=== PATIENT | male | born 1955 | race Caucasian/White ===

== ENCOUNTER 2023-03-15 19:56 | Inpatient (IN) | payer OTHER ==
--- OUTSIDE RECORDS SUMMARY | 2023-03-16 14:37 | XMS REPORT | Continuity of Care Document ---
:1955 Author Organization [facility] t Address [address] [place] [address] [place] [id number] Care Team Providers Name Role Phone CHRIS MONROE Attending Clinician Unavailable CHRIS MONROE Admitting Clinician Unavailable Payers Payer Name Policy Type Policy Number Effective Date Expiration Date S [facility] MEDICARE A B [id number] 2021 00:00:00 [employer] [id number] 2022 INDEMNITY 00:00:00 [employer] INDEMNITY [id number] 2022 00:00:00 [place] [address] [id number] [facility] Problems Condition Condition Condition Status Onset Resolution Last Treating Co mments Source Name Details Category Date Date Treatment Clinician Date [id number] Left renal Problem Co mmon mass [facility] Obstructiv Other Problem Commo n e uropathy obstructiv Sp martha e and - CHI reflux [facility] [id number] Prostate Problem Com mon nodule [facility] [id number] Complex Problem Commo n renal cyst [facility] [id number] Other Problem Common retention [facility] of urine [facility] [id number] Elevated Problem Comm on PSA [facility] [id number] BPH loc w Problem Com mon urin [facility] obs/LUTS [facility] Allergies, Adverse Reactions, Alerts Allergy Allergy Status Severity Reaction(s) Onset Inactive Treating Comm ents Source Name Type Date Date Clinician NO KNOWN Allergy Active [facility] Social History Social Habit Start Date Stop Date Quantity Comments Source History of Tobacco Current Smoker [facility] - [facility] Use [facility] Sex Assigned At Com mon [facility] - [facility] Smoking Status Start Date Stop Date Source Current Smoker 2022-10-27 00:00:00 Common Spiri t - [facility] Medications Ordered Filled Start Stop Current Ordering Indication Dosage Frequency Signature Comments Components Source Medication Medication Date Date Medication? Clinician (SIG) Name Name Gentamicin Gentamicin No 240mg Common 80mg 80mg 10-06 Spirit 00:00: - [facility] Gentamicin Gentamicin No 240mg Common 80mg 80mg 10-06 Spirit 00:00: [facility] Carvedilol Carvedilol No 1{table BID Carvedilol 6.25 MG 6.25 MG t_with_ 6.25 MG food} HYDROcodone HYDROcodone No 1{table QID HYDROcodon -Acetaminop -Acetaminop t_as_ne e-Acetamin hen 10-325 hen 10-325 eded} ophen MG MG 10-325 MG Protonix 40 Protonix 40 No 1{table QD Protonix MG MG t} 40 MG Plavix 75 Plavix 75 No 1{table QD Plavix 75 MG MG t} MG HYDROcodone HYDROcodone No 1{table QID HYDROcodon -Acetaminop -Acetaminop t_as_ne e-Acetamin hen 10-325 hen 10-325 eded} ophen MG MG 10-325 MG Plavix 75 Plavix 75 No 1{table QD Plavix 75 MG MG t} MG Flomax 0.4 Flomax 0.4 No 1{capsu QD Flomax 0.4 MG MG le} MG amLODIPine amLODIPine No 1{table QD amLODIPine Besylate 10 Besylate 10 t} Besylate MG MG 10 MG Carvedilol Carvedilol No 1{table BID Carvedilol 6.25 MG 6.25 MG t_with_ 6.25 MG food} Tadalafil 5 Tadalafil 5 No 1{table QD Tadalafil MG MG t_as_ne 5 MG eded} Protonix 40 Protonix 40 No 1{table QD Protonix MG MG t} 40 MG Lyrica 200 Lyrica 200 No 1{capsu BID Lyrica 200 MG MG le} MG traZODone traZODone No 1{table QD traZODone HCl 50 MG HCl 50 MG t_at_be HCl 50 MG dtime_a s_neede d} Crestor 40 Crestor 40 No 1{table QD Crestor 40 MG MG t} MG Tricor 145 Tricor 145 No 1{table QD Tricor 145 MG MG t} MG HYDROcodone HYDROcodone No 1{table QID HYDROcodon -Acetaminop -Acetaminop t_as_ne e-Acetamin hen 10-325 hen 10-325 eded} ophen MG MG 10-325 MG Plavix 75 Plavix 75 No 1{table QD Plavix 75 MG MG t} MG Flomax 0.4 Flomax 0.4 No 1{capsu QD Flomax 0.4 MG MG le} MG amLODIPine amLODIPine No 1{table QD amLODIPine Besylate 10 Besylate 10 t} Besylate MG MG 10 MG Carvedilol Carvedilol No 1{table BID Carvedilol 6.25 MG 6.25 MG t_with_ 6.25 MG food} Tadalafil 5 Tadalafil 5 No 1{table QD Tadalafil MG MG t_as_ne 5 MG eded} Protonix 40 Protonix 40 No 1{table QD Protonix MG MG t} 40 MG Lyrica 200 Lyrica 200 No 1{capsu BID Lyrica 200 MG MG le} MG traZODone traZODone No 1{table QD traZODone HCl 50 MG HCl 50 MG t_at_be HCl 50 MG dtime_a s_neede d} Crestor 40 Crestor 40 No 1{table QD Crestor 40 MG MG t} MG Tricor 145 Tricor 145 No 1{table QD Tricor 145 MG MG t} MG amLODIPine amLODIPine No 1{table QD amLODIPine Besylate 10 Besylate 10 t} Besylate MG MG 10 MG Lyrica 200 Lyrica 200 No 1{capsu BID Lyrica 200 MG MG le} MG traZODone traZODone No 1{table QD traZODone HCl 50 MG HCl 50 MG t_at_be HCl 50 MG dtime_a s_neede d} HYDROcodone HYDROcodone No 1{table QID HYDROcodon -Acetaminop -Acetaminop t_as_ne e-Acetamin hen 10-325 hen 10-325 eded} ophen MG MG 10-325 MG Tadalafil 5 Tadalafil 5 No 1{table QD Tadalafil MG MG t_as_ne 5 MG eded} Carvedilol Carvedilol No 1{table BID Carvedilol 6.25 MG 6.25 MG t_with_ 6.25 MG food} Protonix 40 Protonix 40 No 1{table QD Protonix MG MG t} 40 MG Plavix 75 Plavix 75 No 1{table QD Plavix 75 MG MG t} MG Flomax 0.4 Flomax 0.4 No 1{capsu QD Flomax 0.4 MG MG le} MG Tricor 145 Tricor 145 No 1{table QD Tricor 145 MG MG t} MG Crestor 40 Crestor 40 No 1{table QD Crestor 40 MG MG t} MG Lyrica 200 Lyrica 200 No 1{capsu BID Lyrica 200 MG MG le} MG Tricor 145 Tricor 145 No 1{table QD Tricor 145 MG MG t} MG Tadalafil 5 Tadalafil 5 No 1{table QD Tadalafil MG MG t_as_ne 5 MG eded} traZODone traZODone No 1{table QD traZODone HCl 50 MG HCl 50 MG t_at_be HCl 50 MG dtime_a s_neede d} Crestor 40 Crestor 40 No 1{table QD Crestor 40 MG MG t} MG Flomax 0.4 Flomax 0.4 No 1{capsu QD Flomax 0.4 MG MG le} MG amLODIPine amLODIPine No 1{table QD amLODIPine Besylate 10 Besylate 10 t} Besylate MG MG 10 MG Fish Oil Fish Oil No Fish Oil Vital Signs Vital Name Observation Time Observation Value Comments Source WEIGHT 2023-03-10 10:46:00 102.5 kg HEIGHT 2023-03-10 10:46:00 180.3 cm HEIGHT 2023-02-24 12:38:00 180.3 cm WEIGHT 2023-02-24 12:38:00 103.42 kg WEIGHT 2023-03-10 10:46:00 102.5 kg HEIGHT 2023-03-10 10:46:00 180.3 cm HEIGHT 2023-02-24 12:38:00 180.3 cm WEIGHT 2023-02-24 12:38:00 103.42 kg blood pressure 2022-10-27 13:45:00 75 mm[Hg] [facility] - diastolic [facility] height 2022-10-27 13:45:00 71 [in_i] Common S pirit - [facility] weight 2022-10-27 13:45:00 219 [lb_av] [facility] temperature 2022-10-27 13:45:00 98.6 [degF] Common S pirit [facility] bmi 2022-10-27 13:45:00 30.54 kg/m2 Common S [facility] oximetry 2022-10-27 13:45:00 99 % Common [facility] respiratory rate 2022-10-27 13:45:00 18 /min Comm on [facility] blood pressure 2022-10-27 13:45:00 136 mm[Hg] [facility] - systolic [facility] height 2022-10-06 13:15:00 71 [in_i] Common S pirit [facility] weight 2022-10-06 13:15:00 223 [lb_av] Common S [facility] temperature 2022-10-06 13:15:00 98.6 [degF] Common S pirit [facility] bmi 2022-10-06 13:15:00 31.1 kg/m2 Common S [facility] oximetry 2022-10-06 13:15:00 99 % Common S [facility] respiratory rate 2022-10-06 13:15:00 18 /min Comm on [facility] blood pressure 2022-10-06 13:15:00 143 mm[Hg] [facility] - systolic [facility] blood pressure 2022-10-06 13:15:00 77 mm[Hg] [facility] - diastolic [facility] height 2022-06-09 08:00:00 71 [in_i] Common S pirit [facility] weight 2022-06-09 08:00:00 219.8 [lb_av] Common [facility] temperature 2022-06-09 08:00:00 97.6 [degF] [facility] bmi 2022-06-09 08:00:00 30.65 kg/m2 Common [facility] oximetry 2022-06-09 08:00:00 98 % [facility] respiratory rate 2022-06-09 08:00:00 18 /min Comm on [facility] blood pressure 2022-06-09 08:00:00 134 mm[Hg] Common [facility] - systolic [facility] blood pressure 2022-06-09 08:00:00 69 mm[Hg] Common [facility] - diastolic [facility] Procedures This patient has no known procedures. Encounters Start End Encounter Admission Attending Care Care Encounter Source Date/Time Date/Time Type Type Clinicians Facility Department ID 2023-03-14 Inpatient DHAVAL ORTEGA [facility] [id number] [facility] 00:00:00 [place] 2023-03-12 Inpatient DHAVAL ORTEGA [facility] [id number] [facility] 09:53:19 [place] 2023-03-12 Inpatient DAHVAL ORTEGA [facility] [id number] [facility] 09:14:25 [place] 2023-03-12 Inpatient DHAVAL ORTEGA [facility] [id number] [facility] 00:00:00 [place] 2022-06-09 Outpatient [facility] [id number] Common 08:02:01 [facility] 2023-03-10 2023-03-16 Inpatient [facility] [id number] [facility] 07:35:00 13:09:00 [place] 2023-03-13 2023-03-13 Inpatient DHAVAL ORTEGA [facility] [id number] [facility] 11:48:10 23:59:00 [place] 2023-03-12 2023-03-12 Inpatient DHAVAL ORTEGA [facility] [id number] [facility] 14:43:38 00:00:00 [place] 2023-03-11 2023-03-11 Outpatient DHAVAL ORTEGA [facility] [id number] [facility] 13:54:31 13:54:31 CHRIS 2023-02-24 2023-02-24 Outpatient [facility] [id number] SLE 00:00:00 00:00:00 2022-10-27 2022-10-27 OFFICE STLMLC STLMLC [id number] Co mmon 00:00:00 00:00:00 VISIT Spirit ESTAB PT - CHI LEVEL 4 [facility] 2022-10-06 2022-10-06 OFFICE STLMLC STLMLC [id number] Co mmon 00:00:00 00:00:00 VISIT EST Spir it PT LEVEL 3 - CHI [facility] 2022-08-04 2022-08-04 (TEL) STLMLC STLMLC [id number] Co mmon 00:00:00 00:00:00 [facility] 2022-06-09 2022-06-09 OFFICE STLMLC STLMLC [id number] Co mmon 00:00:00 00:00:00 VISIT Myles VAN PT - CHI LEVEL 4 [facility] Results Test Description Test Time Test Comments Results Result Comments Source BASIC METABOLIC PANEL 2023-03-16 06:49:06 Test Item Value Reference Range Interpretation Comme nts SODIUM (BEAKER) (test 141 meq/L 136-145 code = 381) POTASSIUM (BEAKER) 3.7 meq/L 3.5-5.1 (test code = 379) CHLORIDE (BEAKER) (test 113 meq/L 98-107 H code = 382) CO2 (BEAKER) (test code 18 meq/L 22-29 L = 355) BLOOD UREA NITROGEN 14 mg/dL 7-21 (BEAKER) (test code = 354) CREATININE (BEAKER) 1.33 mg/dL 0.57-1.25 H (test code = 358) GLUCOSE RANDOM (BEAKER) 85 mg/dL 70-105 (test code = 652) CALCIUM (BEAKER) (test 8.1 mg/dL 8.4-10.2 L code = 697) EGFR (BEAKER) (test 60 mL/min/1.73 sq In terpretation of eGFR values code = 1092) m Stage Descripti on Result G1 Normal or high >=90 G2 Mildly decreased 60-89 G3a Mildly to moderately 45-5 9 G3b Moderately to severely 30- 44 G4 Severly decreased 15-29 G5 Kidney failure <15Repo rted eGFR is based on the CK D-EPI 2020 equation that d oes not use a race coefficien tEstimated GFR is not as accurate as Creatinine Clearance in pr edicting glomerular filt ration rate. Estimated GFR i s not applicable for dialysis yang castillo Options Trader ID - IRMA WCBC (HEMOGRAM ONLY)2023-03-16 05:56:55 Test Item Value Reference Range Interpretation Comments WHITE BLOOD CELL COUNT (BEAKER) 9.4 K/ L 3.5-10.5 (test code = 775) RED BLOOD CELL COUNT (BEAKER) 3.63 M/ L 4.63-6.08 L (test code = 761) HEMOGLOBIN (BEAKER) (test code = 10.9 GM/DL 13.7-17.5 L 410) HEMATOCRIT (BEAKER) (test code = 34.6 % 40.1-51.0 L 411) MEAN CORPUSCULAR VOLUME (BEAKER) 95 fL 79-92 H (test code = 753) MEAN CORPUSCULAR HEMOGLOBIN 30.0 pg 25.7-32.2 (BEAKER) (test code = 751) MEAN CORPUSCULAR HEMOGLOBIN CONC 31.5 GM/DL 32.3-36.5 L (BEAKER) (test code = 752) RED CELL DISTRIBUTION WIDTH 14.1 % 11.6-14.4 (BEAKER) (test code = 412) PLATELET COUNT (BEAKER) (test 199 K/CU MM 150-450 code = 756) MEAN PLATELET VOLUME (BEAKER) 10.7 fL 9.4-12.4 (test code = 754) NUCLEATED RED BLOOD CELLS 0 /100 WBC 0-0 (BEAKER) (test code = 413) POCT-GLUCOSE [id number] 21:18:40 Test Item Value Reference Range Interpretation Comments POC-GLUCOSE METER 141 mg/dL 70-110 H : TESTED A T [facility] 6720 (BEAKER) (test code = [place], 1538) [address]: Options Trader/Techni carmelo ID = [id number] for JARRET MAGALLON BASIC METABOLIC [id number] 05:32:11 Test Item Value Reference Range Interpretation Comments SODIUM (BEAKER) 142 meq/L 136-145 (test code = 381) POTASSIUM 4.3 meq/L 3.5-5.1 Specimen slight ly (BEAKER) (test hemolyzed code = 379) CHLORIDE (BEAKER) 114 meq/L 98-107 H (test code = 382) CO2 (BEAKER) 16 meq/L 22-29 L (test code = 355) BLOOD UREA 18 mg/dL 7-21 NITROGEN (BEAKER) (test code = 354) CREATININE 1.50 mg/dL 0.57-1.25 H Specimen slight ly (BEAKER) (test hemolyzed code = 358) GLUCOSE RANDOM 86 mg/dL 70-105 (BEAKER) (test code = 652) CALCIUM (BEAKER) 8.0 mg/dL 8.4-10.2 L (test code = 697) EGFR (BEAKER) 52 Interpretatio n of eGFR (test code = mL/min/1.73 values Stage De scription 1092) sq m Result G1 Socorro l or high >=90 G2 Mildly decreased 60-89 G3a Mild ly to moderately 45-5 9 G3b Moderately to s everely 30-44 G4 Severl y decreased 15-29 G5 Kidney failure <15Reported eGF R is based on the CKD-EPI 2020 equation that d oes not use a race coefficientEsti mated GFR is not as accur ate as Creatinine Roshni england in predicting glom erular filtration rate . Estimated GFR is not appl icable for dialysis patien ts Options Trader ID - ADMINCALCIUM, [id number] 04:46:48 Test Item Value Reference Range Interpretation Comments CALCIUM IONIZED (BEAKER) (test 1.08 mmol/L 1.12-1.27 L code = 698) PH, BLOOD (BEAKER) (test code = 7.37 1810) CBC (HEMOGRAM ONLY)2023-03-15 04:24:28 Test Item Value Reference Range Interpretation Comments WHITE BLOOD CELL COUNT (BEAKER) 8.3 K/ L 3.5-10.5 (test code = 775) RED BLOOD CELL COUNT (BEAKER) 3.33 M/ L 4.63-6.08 L (test code = 761) HEMOGLOBIN (BEAKER) (test code = 10.2 GM/DL 13.7-17.5 L 410) HEMATOCRIT (BEAKER) (test code = 31.7 % 40.1-51.0 L 411) MEAN CORPUSCULAR VOLUME (BEAKER) 95 fL 79-92 H (test code = 753) MEAN CORPUSCULAR HEMOGLOBIN 30.6 pg 25.7-32.2 (BEAKER) (test code = 751) MEAN CORPUSCULAR HEMOGLOBIN CONC 32.2 GM/DL 32.3-36.5 L (BEAKER) (test code = 752) RED CELL DISTRIBUTION WIDTH 14.5 % 11.6-14.4 H (BEAKER) (test code = 412) PLATELET COUNT (BEAKER) (test 168 K/CU MM 150-450 code = 756) MEAN PLATELET VOLUME (BEAKER) 10.3 fL 9.4-12.4 (test code = 754) NUCLEATED RED BLOOD CELLS 0 /100 WBC 0-0 (BEAKER) (test code = 413) [id number] 13:22:19 Test Item Value Reference Range Interpretation Comments RPR SCREEN (BEAKER) (test code = Nonreactive Nonreactive 420) BASIC METABOLIC [id number] 05:45:00 Test Item Value Reference Range Interpretation Comments SODIUM (BEAKER) 142 meq/L 136-145 (test code = 381) POTASSIUM 3.9 meq/L 3.5-5.1 (BEAKER) (test code = 379) CHLORIDE (BEAKER) 113 meq/L 98-107 H (test code = 382) CO2 (BEAKER) 19 meq/L 22-29 L (test code = 355) BLOOD UREA 25 mg/dL 7-21 H NITROGEN (BEAKER) (test code = 354) CREATININE 2.06 mg/dL 0.57-1.25 H (BEAKER) (test code = 358) GLUCOSE RANDOM 92 mg/dL 70-105 (BEAKER) (test code = 652) CALCIUM (BEAKER) 7.6 mg/dL 8.4-10.2 L (test code = 697) EGFR (BEAKER) 35 Interpretatio n of eGFR (test code = mL/min/1.73 values Stage De scription 1092) sq m Result G1 Socorro l or high >=90 G2 Mildly decreased 60-89 G3a Mild ly to moderately 45-5 9 G3b Moderately to s everely 30-44 G4 Severl y decreased 15-29 G5 Kidney failure <15Reported eGF R is based on the CKD-EPI 2020 equation that d oes not use a race coefficientEsti mated GFR is not as accur ate as Creatinine Roshni samanta in predicting glom erular filtration rate . Estimated GFR is not appl icable for dialysis patien ts Options Trader ID - [id number] (HEMOGRAM ONLY)2023-03-14 04:59:49 Test Item Value Reference Range Interpretation Comments WHITE BLOOD CELL COUNT (BEAKER) 9.1 K/ L 3.5-10.5 (test code = 775) RED BLOOD CELL COUNT (BEAKER) 3.41 M/ L 4.63-6.08 L (test code = 761) HEMOGLOBIN (BEAKER) (test code = 10.7 GM/DL 13.7-17.5 L 410) HEMATOCRIT (BEAKER) (test code = 32.3 % 40.1-51.0 L 411) MEAN CORPUSCULAR VOLUME (BEAKER) 95 fL 79-92 H (test code = 753) MEAN CORPUSCULAR HEMOGLOBIN 31.4 pg 25.7-32.2 (BEAKER) (test code = 751) MEAN CORPUSCULAR HEMOGLOBIN CONC 33.1 GM/DL 32.3-36.5 (BEAKER) (test code = 752) RED CELL DISTRIBUTION WIDTH 14.3 % 11.6-14.4 (BEAKER) (test code = 412) PLATELET COUNT (BEAKER) (test 141 K/CU MM 150-450 L code = 756) MEAN PLATELET VOLUME (BEAKER) 10.7 fL 9.4-12.4 (test code = 754) NUCLEATED RED BLOOD CELLS 0 /100 WBC 0-0 (BEAKER) (test code = 413) NM LUNG SCAN (V/Q)2023-03-13 14:42:56 [facility] 1955 Sex: MPROCEDURE: LUNG SCAN - perfusion onlyCPT CODE: [id number]: Chest pain.TECHNIQUE: 5.5 mCi of Tc-99m MAAwas injected intravenously, and staticperfusion images were obtained in multiple projections. In addition,SPECT images were obtained. Ventilation imaging was not performed due toCOVID precautions.Correlation: Chest x-ray March 12, 2023.FINDINGS:There is no significant moderate or large size segmental/dunn bsegmentalperfusion defect identified.IMPRESSION:No suspicious findings to suggest an acute pulmonary embolism.Electronically Signed By: Bird Hansen03/13/2023 14:45 CDTWorkstation Name: [id number] 09:24:42 Test Item Value Reference Range Interpretation Comments TRIGLYCERIDES (BEAKER) (test code = 355 mg/dL 540) CHOLESTEROL (BEAKER) (test code = 76 mg/dL 631) HDL CHOLESTEROL (BEAKER) (test code 7 mg/dL = 976) LDL CHOLESTEROL CALCULATED (BEAKER) -2 mg/dL (test code = 633) Triglyceride Reference Range: Low Risk <150 Borderline 150-199 High Risk 200- 499 Very High Risk >=500Cholesterol Reference Range: Low Risk <200 Borderline 200-239 High Risk >240HDL Cholesterol Reference Range: Low Risk >=60 High Risk <40LDL Cholesterol Reference Range: Optimal <100 Near Optimal 100-129 Borderline 130-159 High 160-189 Very High >=190 Options Trader ID - ADMINOperatorID - ADMINBASIC METABOLIC [id number] 07:43:55 Test Item Value Reference Range Interpretation Comments SODIUM (BEAKER) 140 meq/L 136-145 (test code = 381) POTASSIUM 3.8 meq/L 3.5-5.1 (BEAKER) (test code = 379) CHLORIDE (BEAKER) 111 meq/L 98-107 H (test code = 382) CO2 (BEAKER) 18 meq/L 22-29 L (test code = 355) BLOOD UREA 31 mg/dL 7-21 H NITROGEN (BEAKER) (test code = 354) CREATININE 2.54 mg/dL 0.57-1.25 H (BEAKER) (test code = 358) GLUCOSE RANDOM 98 mg/dL 70-105 (BEAKER) (test code = 652) CALCIUM (BEAKER) 7.5 mg/dL 8.4-10.2 L (test code = 697) EGFR (BEAKER) 27 Interpretatio n of eGFR (test code = mL/min/1.73 values Stage De scription 1092) sq m Result G1 [place] l or high >=90 G2 Mildly decreased 60-89 G3a Mildl y to moderately 45-5 9 G3b Moderately to s everely 30-44 G4 Severl y decreased 15-29 G5 Kidney failure <15Reported eGF R is based on the CKD-EPI 2020 equation that d oes not use a race coefficientEsti mated GFR is not as accur ate as Creatinine Roshni samanta in predicting glom erular filtration rate . Estimated GFR is not appl icable for dialysis patien ts Options Trader ID - ADMINOperator ID - DESIRAE BCBC (HEMOGRAM ONLY)2023-03-13 05:55:27 Test Item Value Reference Range Interpretation Comments WHITE BLOOD CELL COUNT (BEAKER) 10.6 K/ L 3.5-10.5 H (test code = 775) RED BLOOD CELL COUNT (BEAKER) 3.45 M/ L 4.63-6.08 L (test code = 761) HEMOGLOBIN (BEAKER) (test code = 10.5 GM/DL 13.7-17.5 L 410) HEMATOCRIT (BEAKER) (test code = 32.5 % 40.1-51.0 L 411) MEAN CORPUSCULAR VOLUME (BEAKER) 94 fL 79-92 H (test code = 753) MEAN CORPUSCULAR HEMOGLOBIN 30.4 pg 25.7-32.2 (BEAKER) (test code = 751) MEAN CORPUSCULAR HEMOGLOBIN CONC 32.3 GM/DL 32.3-36.5 (BEAKER) (test code = 752) RED CELL DISTRIBUTION WIDTH 14.4 % 11.6-14.4 (BEAKER) (test code = 412) PLATELET COUNT (BEAKER) (test 131 K/CU MM 150-450 L code = 756) MEAN PLATELET VOLUME (BEAKER) 10.7 fL 9.4-12.4 (test code = 754) NUCLEATED RED BLOOD CELLS 0 /100 WBC 0-0 (BEAKER) (test code = 413) XR CHEST 1 VIEW PORTABLE / [id number] 21:05:[address] [facility] : 1955 Sex: M ADDENDUM #[address] or a 1 month follow-up chest radiograph is recommendedfor further evaluation of the left basilar opacity to excludemalignancy.These findings were relayed to Chris Monroe via Sgrouples on03/12/2023 at 9:04 PM.Electronically Signed By: Joshua Roth ORIGINAL REPORT TECHNIQUE: Frontal view of the chest.INDICATION: tachy, hypoxia.COMPARISON: CT from03/11/2023.FINDINGS:LINES/TUBES: None.LUNGS: There are streaky opacities in the left base. No consolidation orpulmonary edema.PLEURA: No pneumothorax or significant pleural effusion.HEART AND MEDIASTINUM: The cardiac silhouette is normal in size. Thereis mild rightward deviation of the trachea, most likely due to theaortic arch.SOFT TISSUES AND BONES: Unremarkable.IMPRESSION:Streaky opacities in the left base are mostly atelectasis. Otherwise, noacute intrathoracic abnormality.Electronically Signed By: Joshua Roth03/12/2023 21:07 CDTWorkstation Name: [id number] RENAL COMPLETE 2023-03-12 18:52:[address] [facility] : 1955 Sex: MUltrasound of the KidneysClinical History: R/o hydro, AkiCOMPARISON: None.Discussion:Grayscale and color ultrasound examination of the kidneys and bladderwas performed. Right kidney: 11.5 x 6.8 x 5.2 cm, withcortical thickness of 1.7 cm. Normal cortical echogenicity. No mass. No shadowing calculus. Nohydronephrosis. 1.7 x 1.4 x 1.4 cm partially exophytic simple appearingrenal cyst from the upper pole of the right kidney. Additional simpleappearing renal cysts partially exophytic from the mid pole of rightkidney measuring 1.5 x 1.4 x 1.3 cm.Left kidney: 13.6 x 7.0 x 6.2 cm, with cortical thickness of 1.9 cm. Normal cortical echogenicity. No mass. No shadowing calculus. Nohydronephrosis. Simple appearing partially exophytic 2.6 x 2.5 x 2.4 cmcyst from the kidney. Additional 1.3 x 1.2 x 1.0 cm simple appearingpartially exophytic cyst from the lower pole left kidney.Limited doppler evaluation of bilateralmain renal arteries and veinsdemonstrate patency. Bladder: Nugent catheter within decompressed bladder ..IMPRESSION:Impression:1. No hydronephrosis. Simple appearing bilateral renal cysts; nofollow-up imaging is recommended.2. 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 No hemorrhagic conversion or significant mass effect. 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 No hemorrhagic conversion or significant mass effect. Electronically Signed By: Trinity Henry03/12/2023 10:56 CDTWorkstation Name: [id number] 10:40:54 Test Item Value Reference Range Interpretation Comments HEMOGLOBIN A1C 5.7 % See_Comment H [Automated m essage] ELECTROPHORESIS (BEAKER) The system which (test code = 3811) generated this result transmitted ref erence range: <=5.6%. The reference range was not used to int erpret this result as normal/abnormal . "The A1c is measured using a NGSP-certified method. HbA1c value equal to or greater than 6.5% as thediagnosis cutoff for diabetes. An HbA1c value of 5.7- 6.4% indicates increased risk for diabetes (prediabetes)."Options Trader ID - ADMBASIC METABOLIC [id number] 07:14:24 Test Item Value Reference Range Interpretation Comments SODIUM (BEAKER) 138 meq/L 136-145 (test code = 381) POTASSIUM 4.0 meq/L 3.5-5.1 (BEAKER) (test code = 379) CHLORIDE (BEAKER) 104 meq/L 98-107 (test code = 382) CO2 (BEAKER) 22 meq/L 22-29 (test code = 355) BLOOD UREA 35 mg/dL 7-21 H NITROGEN (BEAKER) (test code = 354) CREATININE 3.15 mg/dL 0.57-1.25 H (BEAKER) (test code = 358) GLUCOSE RANDOM 96 mg/dL 70-105 (BEAKER) (test code = 652) CALCIUM (BEAKER) 7.5 mg/dL 8.4-10.2 L (test code = 697) EGFR (BEAKER) 21 Interpretatio n of eGFR (test code = mL/min/1.73 values Stage De scription 1092) sq m Result G1 [place] l or high >=90 G2 Mildly decreased 60-89 G3a Mildl y to moderately 45-5 9 G3b Moderately to s everely 30-44 G4 Severl y decreased 15-29 G5 Kidney failure <15Reported eGF R is based on the CKD-EPI 2020 equation that d oes not use a race coefficientEsti mated GFR is not as accur ate as Creatinine Roshni samanta in predicting glom erular filtration rate . Estimated GFR is not appl icable for dialysis patien ts Options Trader ID - DESIRAE BLIPID [id number] 07:09:24 Test Item Value Reference Range Interpretation Comments TRIGLYCERIDES (BEAKER) (test code = 275 mg/dL 540) CHOLESTEROL (BEAKER) (test code = 77 mg/dL 631) HDL CHOLESTEROL (BEAKER) (test code 13 mg/dL = 976) LDL CHOLESTEROL CALCULATED (BEAKER) 9 mg/dL (test code = 633) Triglyceride Reference Range: Low Risk <150 Borderline 150-199 High Risk 200- 499 Very High Risk >=500Cholesterol Reference Range: Low Risk <200 Borderline 200-239 High Risk >240HDL Cholesterol Reference Range: Low Risk >=60 High Risk <40LDL Cholesterol Reference Range: Optimal <100 Near Optimal 100-129 Borderline 130-159 High 160-189 Very High >=190 Options Trader ID - DESIRAE BVITAMIN [id number] 06:52:56 Test Item Value Reference Range Interpretation Comments VITAMIN B12 (BEAKER) (test code = 177 pg/mL 213-816 L 774) Options Trader ID - ADMINTSH/FREE T4 IF [id number] 06:52:56 Test Item Value Reference Range Interpretation Comments THYROID STIMULATING HORMONE 0.605 uIU/mL 0.350-4.940 (BEAKER) (test code = 772) Options Trader ID - ADMINHIGH SENSITIVITY TROPONIN [id number] 06:34:52 Test Item Value Reference Range Interpretation Comments HIGH SENSITIVITY TROPONIN I (test 57 pg/ml <=35 H code = 9073926) Options Trader ID - DESIRAE BThe BUILDING MAINTENANCE SUPERVISOR STAT High Sensitivity Troponin-I results should be used in conjunction with other diagnostic information such as ECG, clinical observations and information, and patient symptoms to aid in the diagnosis of CO.CBC (HEMOGRAM ONLY)2023-03-12 06:08:07 Test Item Value Reference Range Interpretation Comments WHITE BLOOD CELL COUNT (BEAKER) 16.7 K/ L 3.5-10.5 H (test code = 775) RED BLOOD CELL COUNT (BEAKER) 3.78 M/ L 4.63-6.08 L (test code = 761) HEMOGLOBIN (BEAKER) (test code = 11.7 GM/DL 13.7-17.5 L 410) HEMATOCRIT (BEAKER) (test code = 35.8 % 40.1-51.0 L 411) MEAN CORPUSCULAR VOLUME (BEAKER) 95 fL 79-92 H (test code = 753) MEAN CORPUSCULAR HEMOGLOBIN 31.0 pg 25.7-32.2 (BEAKER) (test code = 751) MEAN CORPUSCULAR HEMOGLOBIN CONC 32.7 GM/DL 32.3-36.5 (BEAKER) (test code = 752) RED CELL DISTRIBUTION WIDTH 14.6 % 11.6-14.4 H (BEAKER) (test code = 412) PLATELET COUNT (BEAKER) (test 140 K/CU MM 150-450 L code = 756) MEAN PLATELET VOLUME (BEAKER) 10.5 fL 9.4-12.4 (test code = 754) NUCLEATED RED BLOOD CELLS 0 /100 WBC 0-0 (BEAKER) (test code = 413) HIGH SENSITIVITY TROPONIN [id number] 21:42:50 Test Item Value Reference Range Interpretation Comments HIGH SENSITIVITY TROPONIN I (test 69 pg/ml <=35 H code = 4472616) Options Trader ID - DESIRAE BThe BUILDING MAINTENANCE SUPERVISOR STAT High Sensitivity Troponin-I results should be used in conjunction with other diagnostic information such as ECG, clinical observations and information, and patient symptoms to aid in the diagnosis of CO.HIGH SENSITIVITY TROPONIN [id number] 19:20:51 Test Item Value Reference Range Interpretation Comments HIGH SENSITIVITY TROPONIN I (test 69 pg/ml <=35 H code = 6838543) Options Trader ID - MMThe BUILDING MAINTENANCE SUPERVISOR STAT High Sensitivity Troponin-I results should be used in conjunctionwith other diagnostic information such as ECG, clinical observations and information, and patient symptoms to aid in the diagnosis of CO.[id number] 15:25:09 Test Item Value Reference Range Interpretation Comments D-DIMER QUANTITATIVE (BEAKER) 2.58 MG/L FEU <0.50 H (test code = 671) Intended Use: The D-Dimer Assay can be used to aid in the diagnosis of Deep Vein Thrombosis (DVT) and Pulmonary Embolism Disease (PED).In patients with low pre- test probability, various studies concerning STA Liatest D-dimer test have reported that with a cutoff value of 0.50 MG/L FEU, the Negative Predictive Value (NPV) regarding the exclusion of thrombosis is within 95-100% range.HIGH SENSITIVITY TROPONIN [id number] 15:18:05 Test Item Value Reference Range Interpretation Comments HIGH SENSITIVITY TROPONIN I (test 55 pg/ml <=35 H code = 2820229) Options Trader ID - MMThe BUILDING MAINTENANCE SUPERVISOR STAT High Sensitivity Troponin-I results should be used in conjunctionwith other diagnostic information such as ECG, clinical observations and information, and patient symptoms to aid in the diagnosis of CO.CTA [id number] 14:39:55 [facility] : 1955 Sex: MCTA BRAIN, CT BRAIN CEREBRAL PERFUSION ANALYSIS, CTA CAROTIDBRAIN CT WITHOUT CONTRASTINDICATION: Stroke, follow upSymptoms onset less than 6 hours and NIHSS 6 or greaterCOMPARISON: CT head of the same dateTECHNIQUE:Rapid acquisition spiral images were obtained between the aortic archand the cranial vertex during intravenous contrast infusion toreconstruct axial images and angiographic 3D maximum intensityprojections (MIP). 3-D volumetric reformatted images were created at [facility] workstation. Precontrast images of the brain were alsoobtained. Stenosis evaluation reported in compliance with NASCET criter ia.DOSE REDUCTION: Dose modulation, iterative reconstruction, and/orweight-based adjustment of the mA/kV was utilized to reduce theradiation dose to as low as reasonably achievable.FINDINGS: CTA BRAIN:Internal carotid arteries: Petrous, cavernous and supraclinoid portionspatent. Middle cerebral arteries: There is a attenuation of distal MCA A8rnerbcet bilaterally, presumably atherosclerotic. Bilateral MCA M2esvyrxmm demonstrate normal contrast enhancement.Anterior cerebral arteries: Bilateral CHRISTI A1-A2 branches demonstratenormal contrast enhancement.Basilar system: Normal contrast opacification of the vertebrobasilarsystem.Posterior cerebral arteries: Normal contrast opacification of thebilateral VASC[facility] SPECIALISTS P1-P2 branches.Venous opacification: Major dural sinuses unremarkable for bolus timing.Additionalfindings: None.CT PERFUSION:Technique:Arterial input function: ACAVenous outflow function: TorcularSite of normal perfusion: right anterior territoryParametric Maps: Core infarct: Using the threshold of cerebral blood flow less than 30%,there is an ischemic core in the N/A territory with a total volume ofischemic core of N/A cc.Total hypoperfusion: Using the threshold of Tmax greater than 6 seconds,there is an area of hypoperfusion in the N/A territory with a totalvolume of hypoperfusion of N/A cc.Penumbra: The mismatch volume is N/A cc. The mismatch ratio is N/A.CTA NECK:Common carotid arteries: There is normal contrast opacification of thebilateral common carotid arteries.Cervical internal carotid arteries: Normal contrast opacification of thebilateral cervical internal carotid arteries withoutsignificantstenosis by NASCET criteria.Vertebral arteries: Normal contrast opacification of the bilateralcervical vertebral arteries.Arch anatomy: Conventional.Nonvascular findings:No acute findings wit hin the neck soft tissues.IMPRESSION:1. No proximal vessel occlusion within the head or neck. There is aattenuation of distal MCA M2 branches bilaterally, presumablyatherosclerotic. 2. No perfusion deficit.Electronically Signed By: Trinity Henry03/11/2023 14:42 CDTWorkstation Name: [id number] BRAIN CEREBRAL PERFUSION [id number] 14:39:55 [facility] : 1955 Sex: MCTA BRAIN, CT BRAIN CEREBRAL PERFUSION ANALYSIS, CTA CAROTIDBRAIN CT WITHOUT CONTRASTINDICATION: Stroke, follow upSymptoms onset less than 6 hours and NIHSS 6 or greaterCOMPARISON: CT head of the same dateTECHNIQUE:Rapid acquisition spiral images were obtained between the aortic archand the cranial vertex during intravenous contrast infusion toreconstruct axial images and angiographic 3D maximum intensityprojections (MIP). 3-D volumetric reformatted images were created at [facility] workstation. Precontrast images of the brain were alsoobtained. Stenosis evaluation reported in compliance with NASCET criter ia.DOSE REDUCTION: Dose modulation, iterative reconstruction, and/orweight-based adjustment of the mA/kV was utilized to reduce theradiation dose to as low as reasonably achievable.FINDINGS: CTA BRAIN:Internal carotid arteries: Petrous, cavernous and supraclinoid portionspatent. Middle cerebral arteries: There is a attenuation of distal MCA W4bipackhy bilaterally, presumably atherosclerotic. Bilateral MCA P7hfgcueqx demonstrate normal contrast enhancement.Anterior cerebral arteries: Bilateral CHRISTI A1-A2 branches demonstratenormal contrast enhancement.Basilar system: Normal contrast opacification of the vertebrobasilarsystem.Posterior cerebral arteries: Normal contrast opacification of thebilateral [facility] P1-P2 branches.Venous opacification: Major dural sinuses unremarkable for bolus timing.Additionalfindings: None.CT PERFUSION:Technique:Arterial input function: ACAVenous outflow function: TorcularSite of normal perfusion: right anterior territoryParametric Maps: Core infarct: Using the threshold of cerebral blood flow less than 30%,there is an ischemic core in the N/A territory with a total volume ofischemic core of N/A cc.Total hypoperfusion: Using the threshold of Tmax greater than 6 seconds,there is an area of hypoperfusion in the N/A territory with a totalvolume of hypoperfusion of N/A cc.Penumbra: The mismatch volume is N/A cc. The mismatch ratio is N/A.CTA NECK:Common carotid arteries: There is normal contrast opacification of thebilateral common carotid arteries.Cervical internal carotid arteries: Normal contrast opacification of thebilateral cervical internal carotid arteries withoutsignificantstenosis by NASCET criteria.Vertebral arteries: Normal contrast opacification of the bilateralcervical vertebral arteries.Arch anatomy: Conventional.Nonvascular findings:No acute findings wit hin the neck soft tissues.IMPRESSION:1. No proximal vessel occlusion within the head or neck. There is aattenuation of distal MCA M2 branches bilaterally, presumablyatherosclerotic. 2. No perfusion deficit.Electronically Signed By: Trinity Henry03/11/2023 14:42 CDTWorkstation Name: [id number] 14:39:55[facility] : 1955 Sex: MCTA BRAIN, CT BRAIN CEREBRAL PERFUSION ANALYSIS, CTA CAROTIDBRAIN CT WITHOUT CONTRASTINDICATION: Stroke, follow upSymptoms onset less than 6 hours and NIHSS 6 or greaterCOMPARISON: CT head of the same dateTECHNIQUE:Rapid acquisition spiral images were obtained between the aortic archand the cranial vertex during intravenous contrast infusion toreconstruct axial images and angiographic 3D maximum intensityprojections (MIP). 3-D volumetric reformatted images were created at [facility] workstation. Precontrast images of the brain were alsoobtained. Stenosis evaluation reported in compliance with NASCET crite tripp.DOSE REDUCTION: Dose modulation, iterative reconstruction, and/orweight- based adjustment of the mA/kV was utilized to reduce theradiation dose to as low as reasonably achievable.FINDINGS: CTA BRAIN:Internal carotid arteries: Petrous, cavernous and supraclinoid portionspatent. Middle cerebral arteries: There is a attenuation of distal MCA N0kjhzaalx bilaterally, presumably atherosclerotic. Bilateral MCA D9dnynhddw demonstrate normal contrast enhancement.Anterior cerebral arteries: Bilateral CHRISTI A1-A2 branches demonstratenormal contrast enhancement.Basilar system: Normal contrast opacification ofthe vertebrobasilarsystem.Posterior cerebral arteries: Normal contrast opacification of thebilateralPCA P1-P2 branches.Venous opacification: Major dural sinuses unremarkable for bolus timing.Additional findings: None.CT PERFUSION:Technique:Arterial input function: ACAVenous outflow function: TorcularSite of normal perfusion: right anterior territoryParametric Maps: Core infarct: Using the threshold of cerebral blood flow less than 30%,there is an ischemic core in the N/A territory with a total volume ofischemic core of N/A cc.Total hypoperfusion: Using the threshold of Tmax greater than 6 seconds,there is an area of hypoperfusion in the N/A territory with a totalvolume of hypoperfusion of N/A cc.Penumbra: The mismatch volume is N/A cc. The mismatch ratio is N/A.CTA NECK:Common carotid arteries: There is normal contrast opacification of thebilateral common carotid arteries.Cervical internal carotid arteries: Normal contrast opacification of thebilateral cervical internal carotid arteries without significantstenosis by NASCET criteria.Vertebral arteries: Normal contrast opacification of the bilateralcervical vertebral arteries.Arch anatomy: Conventional.Nonvascular findings:No acute findings wi thin the neck soft tissues.IMPRESSION:1. No proximal vessel occlusion within the head or neck. Thereis aattenuation of distal MCA M2 branches bilaterally, presumablyatherosclerotic. 2. No perfusion deficit.Electronically Signed By: Trinity Henry03/11/2023 14:42 CDTWorkstation Name: [id number] BRAIN/STROKE TEST [id number] 14:19:17 [facility] : 1955 Sex: MCT BRAIN/STROKE TEST DESIGNINDICATION: Neuro deficit, acute, stroke suspectedCOMPARISON: NoneTECHNIQUE: Noncontrast axial CT imaging of the brain and skull. DOSE REDUCTION: Dose modulation, iterative reconstruction, and/orweight-based adjustment of the mA/kV was utilized to reduce theradiation dose to as lowas reasonably achievable.FINDINGS:No acute intracranial hemorrhage.Loss of laguna- white differentiation along the right occipital convexityconcerning for developing infarct.Scattered foci of hypoattenuation are present throughout theperiventricular and subcortical white matter, and, although nonspecificby imaging, statistically represent mild chronic microvascular ischemicchanges in this age group.No hydrocephalus.Orbits are within normal limits.No obstructive paranasal sinus disease.IMPRESSION:1. No acute intracranial hemorrhage.2. Loss of laguna-white differentiation along the right occipitalconvexity concerning for developing infarct.If there is persistent clinical concern for intracranial pathology, MRexamination is recommended for further characterization.Electronically Signed By: Trinity Henry03/11/2023 14:21 CDTWorkstation Name: [id number] 13:49:06 Test Item Value Reference Range Interpretation Comments POC-GLUCOSE METER 154 mg/dL 70-110 H : TESTED A T [facility] 67[address] (BEAKER) (test code = [place], 1538) [address]: Options Trader/Techni carmelo ID = [id number] for No rthrupRaquel HIGH SENSITIVITY TROPONIN [id number] 11:24:00 Test Item Value Reference Range Interpretation Comments HIGH SENSITIVITY TROPONIN I (test 47 pg/ml <=35 H code = 9633268) Options Trader ID - MMThe BUILDING MAINTENANCE SUPERVISOR STAT High Sensitivity Troponin-I results should be used in conjunctionwith other diagnostic information such as ECG, clinical observations and information, and patient symptoms to aid in the diagnosis of CO.BASIC METABOLIC [id number] 07:58:20 Test Item Value Reference Range Interpretation Comments SODIUM (BEAKER) 139 meq/L 136-145 (test code = 381) POTASSIUM 4.5 meq/L 3.5-5.1 (BEAKER) (test code = 379) CHLORIDE (BEAKER) 111 meq/L 98-107 H (test code = 382) CO2 (BEAKER) 18 meq/L 22-29 L (test code = 355) BLOOD UREA 30 mg/dL 7-21 H NITROGEN (BEAKER) (test code = 354) CREATININE 2.47 mg/dL 0.57-1.25 H (BEAKER) (test code = 358) GLUCOSE RANDOM 101 mg/dL 70-105 (BEAKER) (test code = 652) CALCIUM (BEAKER) 7.9 mg/dL 8.4-10.2 L (test code = 697) EGFR (BEAKER) 28 Interpretati on of eGFR (test code = mL/min/1.73 values Stage De scription 1092) sq m Result G1 [place] l or high >=90 G2 Mildly decreased 60-89 G3a Mildl y to moderately 45-5 9 G3b Moderately to s everely 30-44 G4 Severl y decreased 15-29 G5 Kidney failure <15Reported eGF R is based on the CKD-EPI 2020 equation that d oes not use a race coefficientEsti mated GFR is not as accur ate as Creatinine Roshni samanta in predicting glom erular filtration rate . Estimated GFR is not appl icable for dialysis patien ts Options Trader ID - MMCALCIUM, [id number] 05:43:51 Test Item Value Reference Range Interpretation Comments CALCIUM IONIZED (BEAKER) (test 1.01 mmol/L 1.12-1.27 L code = 698) PH, BLOOD (BEAKER) (test code = 7.28 1810) CBC (HEMOGRAM ONLY)2023-03-11 05:25:39 Test Item Value Reference Range Interpretation Comments WHITE BLOOD CELL COUNT (BEAKER) 15.3 K/ L 3.5-10.5 H (test code = 775) RED BLOOD CELL COUNT (BEAKER) 3.93 M/ L 4.63-6.08 L (test code = 761) HEMOGLOBIN (BEAKER) (test code = 12.0 GM/DL 13.7-17.5 L 410) HEMATOCRIT (BEAKER) (test code = 37.3 % 40.1-51.0 L 411) MEAN CORPUSCULAR VOLUME (BEAKER) 95 fL 79-92 H (test code = 753) MEAN CORPUSCULAR HEMOGLOBIN 30.5 pg 25.7-32.2 (BEAKER) (test code = 751) MEAN CORPUSCULAR HEMOGLOBIN CONC 32.2 GM/DL 32.3-36.5 L (BEAKER) (test code = 752) RED CELL DISTRIBUTION WIDTH 14.2 % 11.6-14.4 (BEAKER) (test code = 412) PLATELET COUNT (BEAKER) (test 137 K/CU MM 150-450 L code = 756) MEAN PLATELET VOLUME (BEAKER) 10.4 fL 9.4-12.4 (test code = 754) NUCLEATED RED BLOOD CELLS 0 /100 WBC 0-0 (BEAKER) (test code = 413) BASIC METABOLIC [id number] 21:04:54 Test Item Value Reference Range Interpretation Comments SODIUM (BEAKER) 138 meq/L 136-145 (test code = 381) POTASSIUM 5.7 meq/L 3.5-5.1 H (BEAKER) (test code = 379) CHLORIDE (BEAKER) 110 meq/L 98-107 H (test code = 382) CO2 (BEAKER) 18 meq/L 22-29 L (test code = 355) BLOOD UREA 29 mg/dL 7-21 H NITROGEN (BEAKER) (test code = 354) CREATININE 2.02 mg/dL 0.57-1.25 H (BEAKER) (test code = 358) GLUCOSE RANDOM 148 mg/dL 70-105 H (BEAKER) (test code = 652) CALCIUM (BEAKER) 8.2 mg/dL 8.4-10.2 L (test code = 697) EGFR (BEAKER) 36 Interpretatio n of eGFR (test code = mL/min/1.73 values Stage De scription 1092) sq m Result G1 [place] l or high >=90 G2 Mildly decreased 60-89 G3a Mildl y to moderately 45-5 9 G3b Moderately to s everely 30-44 G4 Severl y decreased 15-29 G5 Kidney failure <15Reported eGF R is based on the CKD-EPI 2020 equation that d oes not use a race coefficientEsti mated GFR is not as accur ate as Creatinine Roshni samanta in predicting glom erular filtration rate . Estimated GFR is not appl icable for dialysis patien ts Options Trader ID - ADMINCBC (HEMOGRAM ONLY)2023-03-10 20:38:36 Test Item Value Reference Range Interpretation Comments WHITE BLOOD CELL COUNT (BEAKER) 17.1 K/ L 3.5-10.5 H (test code = 775) RED BLOOD CELL COUNT (BEAKER) 4.76 M/ L 4.63-6.08 (test code = 761) HEMOGLOBIN (BEAKER) (test code = 14.2 GM/DL 13.7-17.5 410) HEMATOCRIT (BEAKER) (test code = 45.5 % 40.1-51.0 411) MEAN CORPUSCULAR VOLUME (BEAKER) 96 fL 79-92 H (test code = 753) MEAN CORPUSCULAR HEMOGLOBIN 29.8 pg 25.7-32.2 (BEAKER) (test code = 751) MEAN CORPUSCULAR HEMOGLOBIN CONC 31.2 GM/DL 32.3-36.5 L (BEAKER) (test code = 752) RED CELL DISTRIBUTION WIDTH 14.0 % 11.6-14.4 (BEAKER) (test code = 412) PLATELET COUNT (BEAKER) (test 191 K/CU MM 150-450 code = 756) MEAN PLATELET VOLUME (BEAKER) 9.8 fL 9.4-12.4 (test code = 754) NUCLEATED RED BLOOD CELLS 0 /100 WBC 0-0 (BEAKER) (test code = 413) Notes Date/Time Note Provider Source 2023-03-10 22:37:37-00:00 CHRIS MONROE [facility] OPERATIVE/PROCEDURE REPORT SAQIB FRENCH FACILITY: [facility] Billing #: [id number] [facility] MR #: [id number] : 1955 DATE OF PROCEDURE: 03/10/2023 SURGEON: Chris Monroe MD PREOPERATIVE DIAGNOSES: 1. Enlarged prostate/benign prostatic hyperplasi a with lower urinary tract obstruction and symptoms. 2. Elevated prostate-specific antigen, status po st negative prostate biopsy with transrectal ultrasound reve aling 190 g gland. POSTOPERATIVE DIAGNOSES: 1. Enlarged prostate/benign prostatic hyperplasi a with lower urinary tract obstruction and symptoms. 2. Elevated prostate-specific antigen, status po st negative prostate biopsy with transrectal ultrasound reve aling 190 g gland. 3. Pelvic intra-abdominal adhesions. PRINCIPAL PROCEDURES: 1. Robot-assisted laparoscopic simple/retropubic prostatectomy. 2. Extensive lysis of adhesions. INDICATIONS FOR PROCEDURE: Mr. French presented to the Urology Clinic with progressing urinary symptoms and an elevated PSA. He underwent evaluation, which included cystosco py and eventually prostate biopsy and evaluation was el evated PSA and was found to have significant 4 lobar intravesic al projection with an extended prostatic urethral length signi ficant energy indicating lateral lobar hypertrophy and a proje cting intravesical median lobe on cystoscopy. His pros cornejo biopsy was completed on October 06 of this year revea ling a 186.05 g gland with a PSA density of 0.05 negative for ma lignancy. Because of this bothersome urinary symptoms, he strongly desired therapy for it and elected to proceed dunn rgically. Given the size of his prostate, transurethral procedur es were not an option with the exception of perhaps the holmium laser enucleation of the prostate, but when I explaine d that I did not perform that procedure, he suggested he want ed to have surgery done by me, which would be the robotic s imple prostatectomy. PROCEDURE NOTE: The patient was consented in the preoperative holding area before being transferred to the ope rative suite, where general anesthesia was induced. He was giv en Ancef 2 g IV antimicrobial prophylaxis and Pneumoboots wer e provided for DVT prophylaxis. He was supine on the procedure table, padded and secured appropriately and an OG tube was rashid saima for gastric decompression. Pneumoboots were provided for DVT prophylaxis. His abdomen was shaved, prepped with ChloraPrep as well his genitalia, and draped in a standard fashion. An 18-Divehi urethral Nugent catheter was placed via his ureth ra into his bladder with ease with drainage of clear yellow urine. Laparoscopic entry into the abdomen was performe d via a supraumbilical midline incision that was made ap proximately 2.5 cm in length. This was incised using a 15 blade, after instilling 0.25% Marcaine, and deepened through the subcutaneous tissues down to the fascia using Rodrigo vie electrocautery. The fascia was incised using a 1 5 blade, and Roberto clamps were used to bulk picker the internal abdominal aponeurosis fascia, and this was similarly incis ed. The peritoneal cavity was entered, and a 15 mm camer a port balloon port was then placed. Appropriate insufflation p ressures were obtained, and so we increased the pressure to 12 mmHg. With the abdomen appropriately distended, we then mar ked out and placed the additional 3 robotic arms for a stand dmitri 4-arm robotic approach. The 12 mm metallurgical laboratory assistant port was i n the left lower quadrant and a 5 mm metallurgical laboratory assistant port was in the left upper quadrant. These were all placed under direct vis ion. The robot was then docked and the patient had been p laced in the Trendelenburg position. At this point, we observ ed significant pelvic adhesions, likely from prior surgery held in and around that region. As a result, I began lysis of those adhesions, which extended from the left mid lower quadrant all the way to the right mid lower quadrant including the rectu m adherent to the posterior surface of the bladder. Once each of these adhesions was released without any evidence of i njury or trauma to the bowel, we then filled the bladder retrogr darnell via the catheter with 300 mL of sterile water to distend it before incising the bladder in an anteroposterior direc tion and entering the bladder. A stay suture of 2-0 Vicry l was placed at each corner to minimize tearing of the incisi on, and 2-0 Vicryl stay sutures were used at each corner of the incision in order to open it in a rectangular configuration. The urine was aspirated out of the bladder and the ureteral or ifices were visualized and a 5-Divehi feeding tube was place d via the ureteral orifices to shoaib them. 3-0 chromic was used to hold those feeding tubes in place. We then utilized a 0 Vicryl to grasp the median lobar tissue and incised the mu cosa beneath it leaving a large lip of mucosa for ultimate recon struction down the line. Once the adenoma was removed from the lip of the mucosa intravesically projecting, we continued t he dissection posteriorly and extending into the right lateral wall of the prostate nearest the bladder neck. Similar exten guanakito was performed to the left at the bladder neck and th en we employed a tenaculum to elevate the tissue further. This was done via the 4th arm. Continued dissection, blunt and sha rp, with electrocautery was performed to circumferentiall y release all of the adenoma from posterior to lateral to ante rior dividing the mucosa where appropriate along the lateral a nd anterior component of the bladder neck. We continued the dissection until the adenoma was essentially delivered out of the prostatic fossa as we dissected it all the way t o the putative apex of the prostate. Because of the extensive s ize of the adenoma, we eventually had to divide the adenoma and take it out in parts. So, the right mid to bladder neck portion of the prostatic adenoma was removed first and then the left mid to bladder neck component of the adenoma was remove d. We then were able to further dissect deeper and extend b eyond the apical aspects of the adenoma and along the apic al lateral aspects of the adenoma eventually until the stri ated sphincter was visualized. Care was taken to avoid injury t o the striated sphincter and circumferential dissection was the n undertaken elevating the adenoma and dissecting that simila rly to the apex. Again, given the size of the adenoma remna nt, it was removed in part, with the left apical mid portio n of the prostatic adenoma removed first and then the rig ht apical mid portion of the prostatic adenoma. Once the bulk of the adenoma had been removed, we then continued to dissect a ny residual nodules of BPH that were observed within the pro static fossa until a nice smooth channel had been created wit h no significant residual adenoma. A striated sphinct er was visible beyond a layer of peripheral zone and was uninju red. There was a slight degree of ooze throughout the case, but no significant bleeding was noted. Bipolar fulguration was perf ormed for any capillary bleeding that was observed. Once the p rostatic fossa was adequately hemostatic, we then utilized 3-0 chromic to advance the mucosa of the median lobar mucosa al l the way down to the cut edge mucosa at the urethra. The remai jamal mucosa in the lateral and anterior areas were intermittent ly approximated and advanced into the prostatic fossa in order t o minimize the risk of bladder neck contracture. Once this had been completed, we then advanced the 22-Divehi 3-way Nugent catheter under direct vision into his bladder and placed 30 mL of sterile water in the balloon. At this point, we had already removed the 5-Divehi ureteral access catheters a nd cut the 3-0 chromic suture that was holding them in place. W e then reconstructed the bladder using 3-0 Vicryl in a running fashion for the mucosal and inner aspect of the muscular is from the bottom and then from the top. After this, we the n retrograde filled the bladder with approximately 150 mL of saline, and then performed [id number]-dh-[id number] repairs of any sl ight leakage that was observed inferiorly in the incision. On ce no longer leaking, we then performed the seromuscular laye r closure using 2-0 Vicryl again in a running fashion from infer ior to midline and from superior down to midline. Once this was completed, we then again tested the bladder by filling it with 150 to 200 mL of sterile water, and no leaks were noted. At t his point, we then removed all of the prostate adenoma by plac ing it in an EndoCatch bag. Of note, all the prior stay sutur es and needles were removed under direct vision, as well as all Hem-o-tressa clips, and the counts were correct. We then plac ed a 19-Divehi Jose Maria drain into the pelvic gutter and placed it to self suction. A Brennan-Marie closure of the 12 mm metallurgical laboratory assistant port using 0 Vicryl suture was performed under direct vision using the robotic camera. All the robotic trocars were removed under direct vision, and the prostate adenoma within t he EndoCatch was removed via the camera port incision. Each o f the incision sites were copiously irrigated and then the came ra port incision was closed using a 0 PDS suture in an i nterrupted rlxavl-gn-cxhyo fashion. Once adequately closed, we then again irrigated the subcutaneous tissues, instilled th em with 0.25% Marcaine, and then closed the skin using 4-0 Mon ocryl, after the camera port incision subcutaneous tissues we re reapproximated using 0 Vicryl sutures to minimiz e the PDS sutures from sticking up through the dermis. Felix mabond was used to seal the skin, and the urethral Nugent ca theter was irrigated to ensure patency and there was minima l pink hematuria. We then connected the catheter 3-way port to continuous bladder irrigation using normal salin e, and the returning efflux was light pink on slow drip. Th e patient was then awakened from general anesthesia, transferr ed to a stretcher and then transferred to the recovery r oom in good condition. COMPLICATIONS: None. ESTIMATED BLOOD LOSS: 300 mL. DISCHARGE DISPOSITION: He will be standard robot ic simple prostatectomy pathway, given Valium for bladder spasms in the initial postoperative period until flatus is pas sed and then he will be started on oxybutynin extended release v ersion for the bladder spasms with instructions to avoid taking it 24 hours prior to the scheduled cystogram, which will occ ur 10-14 days from the date of surgery, and a subsequent voidi ng trial. He also will be given an antimicrobial prescription for either Cipro or Bactrim, which he should start taking t he day prior to the scheduled cystogram and voiding trial. SHANIKA/GUS /[id number] Electronically signed by: CHRIS MONROE at 202 11-29-14 19:49:57.000
[2023-03-16 14:43] VITALS: BMI 30.7
[2023-03-16] MEDS ORDERED: OXYBUTYNIN ER 5 MG TAB PO PRN (17:21)
[2023-03-16] MEDS ORDERED: DOCUSATE NA/SENNA CONC 1 TAB PO PRN (17:26)
[2023-03-16] MEDS ORDERED: ACETAMINOPHEN 500 MG TAB PO PRN (19:52)
[2023-03-16] MEDS: DOCUSATE NA 100 MG CAP PO SCH ×2 (20:00→21:05)
[2023-03-16] MEDS: DOXAZOSIN 2 MG TAB PO SCH (21:05)
[2023-03-16] MEDS: APIXABAN 2.5 MG TABLET PO SCH (21:05)
[2023-03-16] MEDS: MELATONIN 3 MG TABLET PO PRN (21:05)
[2023-03-16] MEDS: ROSUVASTATIN 10 MG TAB PO SCH (21:06)
[2023-03-16] MEDS: carvediloL 6.25 MG TAB PO SCH (21:06)
[2023-03-16] MEDS: BACI/NEOMYCIN/POLY OINT 15GM TOP SCH (21:06)
[2023-03-16] MEDS: MAGNESIUM OXIDE 400 MG TAB PO SCH (21:09)
[2023-03-16] MEDS: GABAPENTIN 100 MG CAP PO SCH (21:09)
[2023-03-16 21:50] LABS: Specific Gravity 1.011 (1.005-1.030); Urine Bacteria <20 /HPF (<20); Urine Bilirubin NEGATIVE (Negative); Urine Blood 3+ (OVER) (Negative); Urine Clarity Turbid (Clear); Urine Color Colorless (Yellow); Urine Glucose NEGATIVE (Negative); Urine Mucus Slight /HPF (None Seen); Urine Protein TRACE (Negative); Urine RBC >50 /HPF (None Seen); Urine Urobilinogen Normal (Normal); Urine pH 7.5 (5.0-7.0)
[2023-03-17] MEDS ORDERED: HYDROCODONE/APAP 10/325 TAB PO PRN (03:28)
[2023-03-17 04:26] LABS: Lymphocytes % 13.6 % (15.3-44.8); MCV 90.8 fL (80-100); MPV 8.2 fL (7.6-11.3); RBC Red Blood Cell Count 3.63 M/uL (4.33-5.43)
[2023-03-17 04:40] LABS: Albumin 2.3 g/dL (3.4-5.0); Magnesium 1.5 mg/dL (1.6-2.4); Potassium 3.5 mEq/L (3.5-5.1); Prealbumin 14.3 mg/dL (20-40)
[2023-03-17] MEDS ORDERED: MAGNESIUM HYDROXIDE 8% 30 ML PO PRN (06:27)
[2023-03-17] MEDS ORDERED: ALBUTEROL 2.5 MG/3 ML NEB SOL NEB PRN (06:43)
[2023-03-17] MEDS ORDERED: IPRATROPIUM BROM 0.5MG/2.5ML NEB PRN (06:43)
[2023-03-17] MEDS: BACI/NEOMYCIN/POLY OINT 15GM TOP SCH ×2 (07:43→19:40)
[2023-03-17] MEDS: PREGABALIN 150 MG CAP PO SCH ×2 (07:43→19:39)
[2023-03-17] MEDS: FE SULF/FA/VIT B COMP & C TAB PO SCH (07:43)
[2023-03-17] MEDS: CRANBERRY FRUIT EXTRACT 200 MG CAP PO SCH ×2 (07:43→19:39)
[2023-03-17] MEDS: ASPIRIN 81 MG CHEWABLE TABLET PO SCH (07:44)
[2023-03-17] MEDS: CYANOCOBALAMIN 1,000 MCG TAB PO SCH (07:44)
[2023-03-17] MEDS: FERROUS SULFATE 325 MG TAB PO SCH (07:44)
[2023-03-17] MEDS: FAMOTIDINE 20 MG TAB PO SCH (07:44)
[2023-03-17] MEDS: carvediloL 6.25 MG TAB PO SCH (07:45)
[2023-03-17] MEDS: DOXAZOSIN 2 MG TAB PO SCH ×2 (07:45→19:37)
[2023-03-17] MEDS: APIXABAN 2.5 MG TABLET PO SCH ×2 (07:46→19:39)
[2023-03-17] MEDS: MAGNESIUM OXIDE 400 MG TAB PO SCH ×2 (07:46→19:39)
[2023-03-17] MEDS: FENOFIBRATE 160 MG TAB PO SCH (07:46)
[2023-03-17] MEDS: HYDROCODONE/APAP 5/325 MG TAB PO PRN ×2 (07:46→12:00)
[2023-03-17] MEDS: CLOPIDOGREL 75 MG TABLET PO SCH (07:46)
[2023-03-17] MEDS: DOCUSATE NA 100 MG CAP PO SCH ×2 (08:00→19:55)
[2023-03-17] MEDS ORDERED: IPRATROPIUM BROM 0.5MG/2.5ML NEB SCH (08:00)
[2023-03-17] MEDS ORDERED: ALBUTEROL 2.5 MG/3 ML NEB SOL NEB SCH (08:00)
[2023-03-17] MEDS: GABAPENTIN 100 MG CAP PO SCH (08:00)
[2023-03-17] MEDS: CIPROFLOXACIN HCL 250 MG TAB PO SCH ×2 (09:57→19:38)
[2023-03-17] MEDS: LIDOCAINE 4% PATCH TOP SCH (09:58)
--- NOTE | 2023-03-17 15:09 | RAD REPORT ---
EXAM DESCRIPTION: RAD - Chest Single View - 03/17/2023 3:04 pm CLINICAL HISTORY: r/o pnuemonia Chest pain. COMPARISON: Chest Pa And Lat (2 Views) dated 02/24/2023 FINDINGS: Portable technique limits examination quality. The lungs are grossly clear. The heart is normal in size. No displaced fractures. IMPRESSION: No acute intrathoracic process suspected.
[2023-03-17] MEDS: NICOTINE 14 MG/PAT TD SCH (16:31)
[2023-03-17] MEDS: PHENOL 1.4% ORAL SPRAY 180ML MM PRN (17:41)
[2023-03-17] MEDS: carvediloL 3.125 MG TAB PO SCH (19:38)
[2023-03-17] MEDS: ROSUVASTATIN 10 MG TAB PO SCH (19:40)
[2023-03-17] MEDS: TRAZODONE 50 MG TABLET PO SCH (19:40)
--- NOTE | 2023-03-17 20:11 | HP ---
Date of Admission: 03/16/2023 [facility] Rehabilitation Admission History And Physical Time Of Service: 9 a.m. Chief Complaint: "I had a stroke and my right side hand is weak, but getting better." History Of Present Illness: Mr. Way is a 67-year-old right-handed patient with hypertensi on, dyslipidemia, obesity, obstructive sleep apnea, and tobacco dependency who has had simple prostat ectomy procedure on 03/10 with robotic assistance. When he completed the procedure, noted chest pain and right-sided weakness. A code stroke was called on 03/11 and his imaging identified an acute lef t occipital and parietal infarct. He was seen by the Cardiology Service to rule out fibrillation. H is blood work did show elevated creatinine of 2.06, elevated BUN 25, and mild anemia. His calcium wa s slightly low at 7.6. He did receive IV fluids and began physical therapy to improve his right-side d weakness. Due to his deficits, he has requirement of minimum assistance for his transfers. He is able to ambulate about 75 feet with moderate assistance with a rolling walker. He does have dexterit y issues in the right upper extremity and is significantly declined from his baseline level of functi oning. As a result, to get him back to independence, he would require aggressive inpatient rehabilit ation for which he is now admitted. Past Medical History: Anxiety, arthritis, benign prostatic hypertrophy, coronary artery disease, gas troesophageal reflux disease, dyslipidemia, hypertension, kidney stones, obesity, obstructive sleep a pnea, peripheral artery disease, and history of pancreatitis. Past Surgical History: Back surgery, carpal tunnel release, spine surgery, colonoscopy, coronary suyapa nt placement x2 in 2019, iliac artery stent in 2014, lumbar epidural injection, nasal fracture surger y in 1979, the procedure with Da Jayesh robot on 03/10/2023, and tonsillectomy. Imaging: His brain MRI without contrast on 03/12 showed small acute infarcts in the frontal subcorti ellen white matter bilaterally and the left inferior parietal lobe and left occipital lobe. There is n o hemorrhagic conversion or mass effect. The fact that the patient has had multiple strokes in diffe rent vascular territories, suggest possibility of fibrillation or a significant hypercoagulable state and he was seen and evaluated by the Cardiology Service along with the Urology Service and then had physical, occupational, and speech therapy. Social History: No recent alcohol, tobacco, or IV drug use. Allergies: NO KNOWN DRUG ALLERGIES. Current Medications: Tylenol 500 mg every 6 hours, Jackson 5/325 every 6 hours, albuterol nebulizer 2. 5 mg every 6 hours as needed, Eliquis 2.5 mg twice daily, aspirin 81 mg daily, Coreg 6.25 mg twice da nir, ciprofloxacin 250 mg twice daily, Plavix 75 mg daily, vitamin B12 1000 mcg daily, Cardura 1 mg t wice daily, Colace 100 mg twice daily, Pepcid 20 mg daily Tricor 160 mg daily, ferrous sulfate 325 mg daily, ipratropium 0.5 mg nebulizer as needed for wheezing, lidocaine patch applied topically daily, milk of magnesia 30 mL daily as needed for constipation, magnesium oxide 400 mg twice daily, melaton in 3 at bedtime. Although the patient actually was using trazodone 25 mg, he said that it did not he lp him sleep well and he will be put to 100 mg of trazodone at night. Also, Lyrica 300 mg twice jarret y, Hemocyte Plus twice daily, Crestor 20 mg at bedtime, Senokot-S 2 at bedtime which will be held as the patient did have 3 loose stools today and again the trazodone up to 100 mg daily. Laboratory Studies: White blood cell count slightly elevated at 14.9 with neutrophils 73, lymphocyte s 13, hemoglobin 11, hematocrit 33, and platelets are 226. Sodium 142, potassium 3.5, chloride 115, carbon dioxide 22, BUN 20, creatinine 1.33, prealbumin 14.3, and albumin 2.3. Urinalysis: Urine is turbid, pH 7.5, blood 3+, esterase 250, red blood cells greater than 50, white blood cells 20 to 50, bacteria less than 20, and trace protein. Review of Systems: Mr. Way reports 3 loose stools, difficulty sleeping. Otherwise, no significant myalgias or arthralg ias. He does have the incoordination of the right upper extremity with weakness noted and he does marshall ve some abdominal pain, where he has the catheter in place as he has had recent prostate surgery. Ot herwise, no fevers or chills. No rash. No psychiatric complaints. No gastrointestinal complaints a nd no other positives on the systems review. Family History: Noncontributory. Physical Examination: Vital Signs: Blood pressure 108/68, pulse 73, respiratory rate 16, and temperature 97.8. Weight 220 pounds, height 5 feet 11 inches, BMI 30. General: Mr. Way is sitting on a bench in the shower. He has just finished a shower. HEENT: He appears normocephalic, atraumatic. Sclerae anicteric. Oropharynx is pink and moist. Abdomen: He does have areas bandaged in the abdomen where he had laparoscopic surgery and his Nugent is in place. Extremities: No significant edema in the lower extremities. Neurologic: In terms of his neurological examination, around 3+ distally in the right upper extremit y and 4 in the proximal right upper extremity. Some decreased sensation in right upper extremity com pared to left side. Right leg 4/5 and left is 5/5. Coordination intact in the upper extremities and lower extremities. He will be ambulated with gait belt. Current Level Of Functioning: Currently he requires supervision for eating, toileting is dependent, showering with maximal assistance, upper body dressing with moderate assistance, lower body dressing is independent, rolling from left to right and right to left requires moderate assistance, sitting in bed with moderate assistance, mix-by-vcfmp transfers with moderate assistance, and ambulating 75 fee t requires moderate assistance with a rolling walker. Rehabilitation And Medical Assessment And Plan: Mr. Way is admitted to the rehabilitation unit with a rehabilitation impairment category of 01 stroke. His impairment group code is 01.2 right body inv olvement, left brain. His etiologic diagnosis is small acute infarcts in the frontal subcortical whi te matter bilaterally and some in the parietal areas. Active comorbids are acute renal injury, anemi a, coronary artery disease, elevated troponins with chest pain, hypertension, tobacco abuse, and callie gn prostatic hypertrophy. Plan: 1.He will have physical and occupational along with speech therapy 3.5 hours, 5 of 7 days. 2.His multiple comorbid conditions, which are outlined above will be addressed by continuing medicat ions, which include trazodone 100 mg at night for insomnia. We will hold stool softeners and laxativ es as he has had 3 loose stools and as needed will be replaced. Crestor for dyslipidemia, Lyrica for neuropathic pain, Hemocyte Plus for anemia, lidocaine patch for pain. He will have the Tricor rochelle nued along with Cardura and Colace. Continue Plavix, aspirin, and Eliquis 2.5 mg twice daily. He wi ll be watched for bleeding. We will continue ciprofloxacin for the infection and slightly elevated w javi blood cell count. Impact Of Comorbids: The patient's recent prostate surgery and ongoing Nugent catheter will be reeval uated to see if the catheter can be removed. He does have some pain at the surgical site. He will h ave a pain patch placed. He does have dexterity issues in the right dominant side and the patient is actually doing better with his lower extremities and has very little facial involvement and therefor e should be able to overcome these with slight challenges very well. Rehab Specific Plan: 1.Mr. Way will have 3.5 hours of therapy including physical, occupational, and speech therapy to im prove his gait, balance, coordination, strength, and transfers and to improve his cognitive functioni ng, his swallowing and speech with articulation as well. 2.Mr. Way has a good understanding of the reason for his admission to the inpatient rehabilitation unit and has the potential to make good improvement in all of his aspects using physical, occupationa l, and speech therapy and that will include again his transfers, his ambulation, and his performance of activities of daily living along with his upper and lower body dressing. If needed, services from the Cardiology Service, Renal Service, Wound Care Service, Urology Service will be consulted. Given his complex medical condition and risk of complications, rehabilitation cannot be safely or effectiv patricia performed at a lower level facility such as custodial. Barriers To Discharge: Currently, the Nugent may be a mild barrier, but we will attempt to have that removed and if not, we will have a leg catheter attached as appropriate. Estimated Length Of Stay: 14 days. Disposition: Home with family. Prognosis: Good. Rehabilitation Goals: 1.Become independent with upper and lower body dressing. 2.Independent with transfers from bed, toilet, shower and that is independently performing shower an d toileting. 3.Independently ambulating 250 feet. 4.Independent up and down 5 steps. 5.To be independent with speech, cognition, judgment and thinking and all other cognitive functionin g. I acknowledge I have personally performed a full physical examination on Mr. Leonardo Way, no later th an 24 hours after his admission to the inpatient rehabilitation unit and determined that he is able t o tolerate the above course of treatment at an intensive level for a reasonable period of time. A de tailed individualized plan of care for him will be completed by hospital day 4 based on the preadmiss ion screen, history and physical, and therapy evaluations. TELMA Voice ID: [id number]
[2023-03-17] MEDS ORDERED: TRAZODONE 50 MG TABLET PO SCH (21:00)
[2023-03-17] MEDS: MELATONIN 3 MG TABLET PO PRN (21:31)
[2023-03-18] MEDS: DOXAZOSIN 2 MG TAB PO SCH ×2 (08:00→20:26)
[2023-03-18] MEDS: HYDROCODONE/APAP 5/325 MG TAB PO PRN ×3 (08:50→20:54)
[2023-03-18] MEDS: LIDOCAINE 4% PATCH TOP SCH (08:51)
[2023-03-18] MEDS: NICOTINE 14 MG/PAT TD SCH (08:51)
[2023-03-18] MEDS: DOCUSATE NA 100 MG CAP PO SCH (08:53)
[2023-03-18] MEDS: ASPIRIN 81 MG CHEWABLE TABLET PO SCH (08:53)
[2023-03-18] MEDS: FERROUS SULFATE 325 MG TAB PO SCH (08:54)
[2023-03-18] MEDS: APIXABAN 2.5 MG TABLET PO SCH ×2 (08:54→20:27)
[2023-03-18] MEDS: carvediloL 3.125 MG TAB PO SCH ×2 (08:54→20:27)
[2023-03-18] MEDS: PREGABALIN 150 MG CAP PO SCH ×2 (08:55→20:28)
[2023-03-18] MEDS: FE SULF/FA/VIT B COMP & C TAB PO SCH (08:55)
[2023-03-18] MEDS: FAMOTIDINE 20 MG TAB PO SCH (08:55)
[2023-03-18] MEDS: CYANOCOBALAMIN 1,000 MCG TAB PO SCH (08:56)
[2023-03-18] MEDS: CRANBERRY FRUIT EXTRACT 200 MG CAP PO SCH ×2 (08:56→20:27)
[2023-03-18] MEDS: CIPROFLOXACIN HCL 250 MG TAB PO SCH ×2 (08:56→20:27)
[2023-03-18] MEDS: FENOFIBRATE 160 MG TAB PO SCH (08:56)
[2023-03-18] MEDS: CLOPIDOGREL 75 MG TABLET PO SCH (08:56)
[2023-03-18] MEDS: BACI/NEOMYCIN/POLY OINT 15GM TOP SCH ×2 (09:00→20:29)
[2023-03-18] MEDS: MAGNESIUM OXIDE 400 MG TAB PO SCH ×2 (10:15→20:31)
[2023-03-18] MEDS ORDERED: DOCUSATE NA 100 MG CAP PO PRN (11:03)
--- NOTE | 2023-03-18 13:53 | P.HP ---
Certification for Inpatient Patient admitted to: Inpatient With expected LOS: >2 Midnights Practitioner: I am a practitioner with admitting privileges, knowledge of patient current condition, hospital course, and medical plan of care. Services: Services provided to patient in accordance with Admission requirements found in Title 42 Section 412.3 of the Code of Federal Regulations Patient History Date of Service: 03/17/23 Reason for admission: RIGHT UPPER LIMB WEAKNESS History of Present Illness: MR. FRENCH HAD BPH SURGERY ROBOTICALLY BY DR CHRIS MONROE. HE FOUR DAYS AFTER SURGERY HAD WEAKNESS OR RIGHT UPPER LIMB. HE HAD A STROKE AND HE IS NOW HERE FOR OT AND PT. HIS SURGERY WAS DONE IN LANE. DETAILS ARE IN THE PAPER RECORD. HE TODAY HAS NO CHEST PAIN, NUASEA OR VOMITING. Allergies No Known Allergies Allergy (Unverified 03/16/23 15:17) Home medications list reviewed: Yes Home Medications: Aspirin 81 mg PO DAILY 03/17/23 Clopidogrel Bisulfate [Plavix] 75 mg PO DAILY 03/17/23 Cyanocobalamin [Vitamin B-12] 1,000 mcg PO DAILY 03/17/23 Docusate [Colace Cap] 100 mg PO BID 03/17/23 Doxazosin Mesylate [Cardura] 1 mg PO BID 03/17/23 Famotidine [Pepcid] 20 mg PO DAILY 03/17/23 Fenofibrate [Tricor] 160 mg PO DAILY 03/17/23 Hydrocodone 10/APAP 325 [[place] 10/325] 1 tab PO Q6H PRN 03/17/23 Ipratropium/Albuterol Sulfate [Iprat-Albut 0.5-3(2.5) mg/3 ml] 3 ml IH Q6H 03/17/23 Lidocaine 4% Patch [Lidoderm 5% Patch] 1 patch TD DAILY 03/17/23 Mag Hydroxide 8% [Milk Of Magnesia] 30 ml PO DAILY 03/17/23 Kane/Bacit/Poly Oint [Neosporin Ointment] 1 appl TOP BID 03/17/23 Oxybutynin Chloride [Ditropan Xl] 5 mg PO DAILY PRN 03/17/23 Pregabalin [Lyrica] 300 mg PO BID 03/17/23 Rosuvastatin Calcium [Crestor] 20 mg PO BEDTIME 03/17/23 carvediloL [Carvedilol] 6.25 mg PO BID 03/17/23 methocarbamoL [Robaxin] 500 mg PO QID 03/17/23 - Past Medical/Surgical History Diabetic: No -: SLEEP APNEA -: GERD -: CAD -: RENAL DISEASE -: HTN - Social History Smoking Status: Never smoker Alcohol use: No CD- Drugs: No Caffeine use: No Place of Residence: Home Review of Systems 10-point ROS is otherwise unremarkable General: Weakness Physical Examination - Vital Signs Temperature: 97.1 F Blood Pressure: 118/68 Pulse: 70 Respirations: 18 Pulse Ox (%): 92 - Physical Exam General: Oriented x3, Mild distress HEENT: Atraumatic, PERRLA, Mucous membr. moist/pink, EOMI, Sclerae nonicteric Neck: Supple, 2+ carotid pulse no bruit, No LAD, Without JVD or thyroid abnormality Respiratory: Clear to auscultation bilaterally, Normal air movement Cardiovascular: Regular rate/rhythm, Normal S1 S2 Gastrointestinal: Normal bowel sounds, No tenderness Musculoskeletal: No tenderness Integumentary: No rashes Neurological: Abnormal strength (RUL WEAKNESS 4/5 PROXIMALLY, LATERAL TWO FINGERS 3/5) Lymphatics: No axilla or inguinal lymphadenopathy Assessment and Plan - Problems (Diagnosis) (1) Monoplegia of right arm Current Visit: Yes Status: Acute Plan: CONTINUE ASA AND PLAVIX HE GOES TO DR. MARTINEZ FOR CARDIAC CARE. HE IS STABLE. CONT PT AND OT. FOLLOWING ARE OTHER MEDICAL ISSUES. Coronary arteriosclerosis [I25.10 (414.00)] STENTS TWO. STENTS TWO. 2021 Sleep apnea [G47.30 (780.57)] 2021 Sleep apnea [G47.30 (780.57)] 2 Back pain [M54.9 (724.5)] 2021 DJD (degenerative joint disease) [M19.90 (715.90)] 2 Radiculitis, lumbosacral [M54.17 (724.4)] 2 Hoarse voice quality [R49.0 (784.42)] 2021 Allergic rhinitis [J30.9 (477.9)] 2022 BPH (benign prostatic hyperplasia) [N40.0 (600.00)] SP TOTAL PROTSTATECTOMY NOW. 2022 Infrarenal abdominal aortic aneurysm (AAA) without rupture [I71.43 (441.4) 0.3] Last addressed: Never 4.5 CM 4.5 CM 2022 Thoracic radiculitis [M54.14 (724.4)] Refer to pain management for nerve block consideration. MRI showing nerve impingement T2-T3, pt would like to consider nerve block. on lyrica to 600mg total daily dose, voltaren, and APAP 1g TID. Flexeril, steroid injection, and medrol dose milton did not help. Cont PT Refer to pain management for nerve block consideration. MRI showing nerve impingement T2-T3, pt would like to consider nerve block. on lyrica to 600mg total daily dose, voltaren, and APAP 1g TID. Flexeril, steroid injection, and medrol dose milton did not help. Cont PT (2) CVA (cerebral vascular accident) Current Visit: Yes Status: Acute - Advance Directives Does patient have a Living Will: No Does patient have a Durable POA for Healthcare: No
--- NOTE | 2023-03-18 13:56 | P.PN ---
Subjective Date of Service: 03/18/23 Chief Complaint: RIGHT UPPER LIMB WEAKNESS Subjective: No new changes, No C/O voiced HE IS STABLE. NO NEW ISSUES. Review of Systems 10-point ROS is otherwise unremarkable Physical Examination - Vital Signs Temperature: 97.1 F Blood Pressure: 118/68 Pulse: 70 Respirations: 18 Pulse Ox (%): 92 - Physical Exam General: Mild distress HEENT: Atraumatic, PERRLA, EOMI Neck: Supple, JVD not distended Respiratory: Clear to auscultation bilaterally, Normal air movement Cardiovascular: Regular rate/rhythm, Normal S1 S2 Gastrointestinal: Normal bowel sounds, No tenderness Musculoskeletal: No tenderness Integumentary: No rashes Neurological: Abnormal strength (RIGHT UPPER LIMB WEAK, SAME BEFORE. ) Lymphatics: No axilla or inguinal lymphadenopathy - Studies Medications List Reviewed: Yes Assessment And Plan - Current Problems (Diagnosis) (1) Monoplegia of right arm Current Visit: Yes Status: Acute Plan: CONTINUE ASA AND PLAVIX HE GOES TO DR. MARTINEZ FOR CARDIAC CARE. HE IS STABLE. CONT PT AND OT. FOLLOWING ARE OTHER MEDICAL ISSUES. Coronary arteriosclerosis [I25.10 (414.00)] STENTS TWO. STENTS TWO. 2022 Sleep apnea [G47.30 (780.57)] 2022 Sleep apnea [G47.30 (780.57)] 2022 Back pain [M54.9 (724.5)] 2022 DJD (degenerative joint disease) [M19.90 (715.90)] 2022 Radiculitis, lumbosacral [M54.17 (724.4)] 2022 Hoarse voice quality [R49.0 (784.42)] 2022 Allergic rhinitis [J30.9 (477.9)] 2023 BPH (benign prostatic hyperplasia) [N40.0 (600.00)] SP TOTAL PROTSTATECTOMY NOW. 202 Infrarenal abdominal aortic aneurysm (AAA) without rupture [I71.43 (441.4) 0.3] Last addressed: Never 4.5 CM 4.5 CM 202 Thoracic radiculitis [M54.14 (724.4)] Refer to pain management for nerve block consideration. MRI showing nerve impingement T2-T3, pt would like to consider nerve block. on lyrica to 600mg total daily dose, voltaren, and APAP 1g TID. Flexeril, steroid injection, and medrol dose milton did not help. Cont PT Refer to pain management for nerve block consideration. MRI showing nerve impingement T2-T3, pt would like to consider nerve block. on lyrica to 600mg total daily dose, voltaren, and APAP 1g TID. Flexeril, steroid injection, and medrol dose milton did not help. Cont PT (2) CVA (cerebral vascular accident) Current Visit: Yes Status: Acute Qualifiers: CVA mechanism: thrombosis (3) Leukocytosis Current Visit: Yes Status: Acute Plan: COULD FROM [facility]ICA INDUCED UTI. START CIPRO FOR A FEW DAYS. CULTURE PENDING. J[facility]ICA CULTURE WILL SHOW COLONIZED BACTERIA.
--- NOTE | 2023-03-18 14:04 | P.RH.PN ---
Estimated Length of Stay: 9 Expected Discharge Date: 03/23/23 Discharge Disposition Plan: Home Family Support: Yes Teaching Manager Goal: Mobility, Transfers, Self Care Vital Signs: Last Vital Signs Temp 97.1 F 03/18/23 13:52 Pulse 70 03/18/23 13:52 Resp 18 03/18/23 13:52 BP 118/68 03/18/23 13:52 Pulse Ox 92 03/18/23 13:52 Laboratory: Laboratory Last Values WBC 14.40 thou/uL (4.3-10.9) H 03/17/23 03:58 RBC 3.63 M/uL (4.33-5.43) L 03/17/23 03:58 Hgb 11.0 g/dL (13.6-17.9) L 03/17/23 03:58 Hct 33.0 % (39.6-49.0) L 03/17/23 03:58 MCV 90.8 fL (80-100) 03/17/23 03:58 MCH 30.2 pg (27.0-35.0) 03/17/23 03:58 MCHC 33.3 g/dL (32.0-36.0) 03/17/23 03:58 RDW 13.7 % (12.1-15.2) 03/17/23 03:58 Plt Count 226 thou/uL (152-406) 03/17/23 03:58 MPV 8.2 fL (7.6-11.3) 03/17/23 03:58 Neutrophils % 73.1 % (41.7-73.7) 03/17/23 03:58 Lymphocytes % 13.6 % (15.3-44.8) L 03/17/23 03:58 Monocytes % 9.2 % (3.3-12.3) 03/17/23 03:58 Eosinophils % 3.6 % (0-4.4) 03/17/23 03:58 Basophils % 0.5 % (0-1.3) 03/17/23 03:58 Absolute Neutrophils 10.6 K/uL (1.8-8.0) H 03/17/23 03:58 Absolute Lymphocytes 2.0 K/uL (0.7-4.9) 03/17/23 03:58 Absolute Monocytes 1.3 K/uL (0.1-1.3) 03/17/23 03:58 Absolute Eosinophils 0.5 K/uL (0-0.5) 03/17/23 03:58 Absolute Basophils 0.1 K/uL (0-0.5) 03/17/23 03:58 Sodium 142 mEq/L (136-145) 03/17/23 03:58 Potassium 3.5 mEq/L (3.5-5.1) 03/17/23 03:58 Chloride 115 mEq/L (98-107) H 03/17/23 03:58 Carbon Dioxide 22 mEq/L (21-32) 03/17/23 03:58 Anion Gap 8.5 mEq/L (5.0-15.0) 03/17/23 03:58 BUN 20 mg/dL (7-18) H 03/17/23 03:58 Creatinine 1.33 mg/dL (0.70-1.30) H 03/17/23 03:58 Est GFR (CKD-EPI) 59 ml/min (=/>90) L 03/17/23 03:58 Glucose 115 mg/dL (74-106) H 03/17/23 03:58 Calcium 8.2 mg/dL (8.5-10.1) L 03/17/23 03:58 Magnesium 1.5 mg/dL (1.6-2.4) L 03/17/23 03:58 Albumin 2.3 g/dL (3.4-5.0) L 03/17/23 03:58 Prealbumin 14.3 mg/dL (20-40) L 03/17/23 03:58 Urine Color Colorless (Yellow) 03/16/23 20:40 Urine Clarity Turbid (Clear) H 03/16/23 20:40 Urine pH 7.5 (5.0-7.0) H 03/16/23 20:40 Ur Specific Orange 1.011 (1.005-1.030) 03/16/23 20:40 Glucose (UA)(Auto) Negative (Negative) 03/16/23 20:40 Urine Ketones Negative (Negative) 03/16/23 20:40 Urine Blood 3+ (over) (Negative) H 03/16/23 20:40 Urine Nitrite Negative (Negative) 03/16/23 20:40 Urine Bilirubin Negative (Negative) 03/16/23 20:40 Urine Urobilinogen Normal (Normal) 03/16/23 20:40 Ur Leukocyte Esterase 250 Jordan/uL (Negative) H 03/16/23 20:40 Urine RBC >50 /HPF (None Seen) H 03/16/23 20:40 Urine WBC 20-50 /HPF (<5) H 03/16/23 20:40 Ur Squamous Epith Cells None seen /HPF (None Seen) 03/16/23 20:40 U Non-Squamous Epi Cells <5 /HPF (None Seen) 03/16/23 20:40 Urine Bacteria <20 /HPF (<20) 03/16/23 20:40 Urine Mucus Slight /HPF (None Seen) 03/16/23 20:40 Urine Culture Reflexed Reflexed 03/16/23 20:40 Urine Total Protein Trace (Negative) H 03/16/23 20:40 Weight: 220 lb 9.6 oz Wound Present: No Closed Surgical Incision Present: Yes Physician Update: Labs reviewed and are stable. Making fair progress with all therapy. He still has the shin in place and will start bladder training on the . He has mild pain in the lower abdominal region at his surgical site. Yoko with bed mobility but her has difficulty turning to the right. Walking 500' without an assistive device. Up and down 15 steps. Independent with standing. supervision for bathing. Summary: Patient's care plan and halfway goals have been reviewed and revised as necessary. Please see the Rehabilitation Signature page for all necessary signatures.
--- NOTE | 2023-03-18 17:39 | CON ---
Date of Consultation: 03/18/2023 Reason For Consultation: Bradycardia. History Of Present Illness: 67-year-old male, history of hypertension, dyslipidemia, obesity, obstru ctive sleep apnea, who is an active smoker, who had a stroke and after the management from acute care was sent to rehab. They noticed on 1 vital signs check, heart rate and rhythm high 40s, so I was co nsulted. I saw him by bedside. He has no symptoms. His heart rate has been in the above 60 most of the time and no complaints. Past Medical History: As outlined above in the HPI. Medications: Refer to reconciliation sheet for detailed list. Allergies: NO KNOWN DRUG ALLERGIES. Family History: No premature coronary artery disease or cancer. Social History: He is a smoker. Does not drink. Does not use any drugs. Review of Systems: All systems reviewed and they were negative except what mentioned in HPI. Physical Examination: Vital signs: Reviewed. Head and Neck: Pupils are equal, reactive to light. Intact eye movements. No JVD. No cervical lym phadenopathy. Neck is supple. Thyroid is not enlarged. Lungs: Clear to auscultation bilaterally. No rhonchi, wheezing, or crackles. No accessory muscle u se. Heart: Regular rate and rhythm. No extra sounds. Abdomen: Soft, nontender. Bowel sounds positive. No organomegaly. No masses or hernia. No rigidi ty or rebound. Extremities: No edema, clubbing, or cyanosis. Intact pulses. Skin: No rashes. Neurologic: Alert, awake, oriented x3. No acute focal deficits appreciated. Investigations: Labs reviewed. Assessment And Recommendations: Bradycardia. I reviewed all his vital signs, had 1 time heart rate in the low 50, 51 or 52. Patient is asymptomatic, now he is at sinus and his heart rate response act ivity is very well. No cardiac intervention or adjustment of medications needed at this time. [facility] ology will sign off. Thank you for the consult. /GUS Voice ID: [id number] Report ID: [id number]
[2023-03-18] MEDS: ROSUVASTATIN 10 MG TAB PO SCH (20:27)
[2023-03-18] MEDS: TRAZODONE 50 MG TABLET PO SCH (20:28)
[2023-03-18] MEDS: MELATONIN 3 MG TABLET PO PRN (20:28)
[2023-03-18] MEDS: NEPRO SHAKE 237 ML CAN PO SCH (20:29)
[2023-03-19] MEDS: LIDOCAINE 4% PATCH TOP SCH (06:23)
[2023-03-19] MEDS: DOXAZOSIN 2 MG TAB PO SCH ×2 (08:00→20:53)
[2023-03-19] MEDS: HYDROCODONE/APAP 5/325 MG TAB PO PRN ×2 (09:16→18:42)
[2023-03-19] MEDS: FERROUS SULFATE 325 MG TAB PO SCH (09:20)
[2023-03-19] MEDS: FAMOTIDINE 20 MG TAB PO SCH (09:20)
[2023-03-19] MEDS: CLOPIDOGREL 75 MG TABLET PO SCH (09:20)
[2023-03-19] MEDS: FE SULF/FA/VIT B COMP & C TAB PO SCH (09:20)
[2023-03-19] MEDS: PREGABALIN 150 MG CAP PO SCH ×2 (09:21→20:53)
[2023-03-19] MEDS: PHENOL 1.4% ORAL SPRAY 180ML MM PRN ×2 (09:21→20:52)
[2023-03-19] MEDS: FENOFIBRATE 160 MG TAB PO SCH (09:21)
[2023-03-19] MEDS: CIPROFLOXACIN HCL 250 MG TAB PO SCH ×2 (09:21→20:52)
[2023-03-19] MEDS: MAGNESIUM OXIDE 400 MG TAB PO SCH ×2 (09:21→20:53)
[2023-03-19] MEDS: NICOTINE 14 MG/PAT TD SCH (09:21)
[2023-03-19] MEDS: CYANOCOBALAMIN 1,000 MCG TAB PO SCH (09:22)
[2023-03-19] MEDS: CRANBERRY FRUIT EXTRACT 200 MG CAP PO SCH ×2 (09:22→20:53)
[2023-03-19] MEDS: carvediloL 3.125 MG TAB PO SCH ×2 (09:22→20:53)
[2023-03-19] MEDS: ASPIRIN 81 MG CHEWABLE TABLET PO SCH (09:22)
[2023-03-19] MEDS: NEPRO SHAKE 237 ML CAN PO SCH ×2 (09:34→20:00)
[2023-03-19] MEDS: APIXABAN 2.5 MG TABLET PO SCH ×2 (09:35→20:53)
[2023-03-19] MEDS: BACI/NEOMYCIN/POLY OINT 15GM TOP SCH ×2 (09:35→20:52)
[2023-03-19 10:27] LABS: Hematocrit 33.7 % (39.6-49.0); MCV 91.7 fL (80-100); RBC Red Blood Cell Count 3.67 M/uL (4.33-5.43)
[2023-03-19 10:28] LABS: Absolute Lymphocytes (CBC) 1.6 K/uL (0.7-4.9); Lymphocytes % 10.8 % (15.3-44.8); MPV 7.8 fL (7.6-11.3)
--- NOTE | 2023-03-19 10:34 | P.PN ---
Subjective Date of Service: 03/19/23 Chief Complaint: RIGHT UPPER LIMB WEAKNESS Subjective: No new changes, C/O voiced HE IS STABLE. NO NEW ISSUES. THIS AM HE WAS STABLE. ONCE I LEFT ROOM HE COMPLAINED OF R FACIAL NUMBNESS THAT IS ALSO GETTING BETTER . Review of Systems 10-point ROS is otherwise unremarkable General: Weakness Physical Examination - Vital Signs Temperature: 97.5 F Blood Pressure: 118/65 Pulse: 85 Respirations: 18 Pulse Ox (%): 95 - Physical Exam General: Oriented x3, Mild distress HEENT: Atraumatic, PERRLA, EOMI Neck: Supple, JVD not distended Respiratory: Clear to auscultation bilaterally, Normal air movement Cardiovascular: Regular rate/rhythm, Normal S1 S2 Gastrointestinal: Normal bowel sounds, No tenderness Musculoskeletal: No tenderness Integumentary: No rashes Neurological: Abnormal strength (RIGHT UPPER LIMB 4/5 PROX. 0/5 THUMB MUSCLES. HAND IS 2/3-5) Lymphatics: No axilla or inguinal lymphadenopathy - Studies Microbiology Data (last 24 hrs): 03/16/23 20:40 Catheterized Urine Vermillion Count - Final No growth. 03/16/23 20:40 Catheterized Urine - Final No growth. Medications List Reviewed: Yes Assessment And Plan - Current Problems (Diagnosis) (1) Monoplegia of right arm Current Visit: Yes Status: Acute Plan: CONTINUE ASA AND PLAVIX HE GOES TO DR. MARTINEZ FOR CARDIAC CARE. HE IS STABLE. CONT PT AND OT. FOLLOWING ARE OTHER MEDICAL ISSUES. Coronary arteriosclerosis [I25.10 (414.00)] STENTS TWO. STENTS TWO. 2021 Sleep apnea [G47.30 (780.57)] 2021 Sleep apnea [G47.30 (780.57)] 2 Back pain [M54.9 (724.5)] 2021 DJD (degenerative joint disease) [M19.90 (715.90)] 2021 Radiculitis, lumbosacral [M54.17 (724.4)] 2021 Hoarse voice quality [R49.0 (784.42)] 2021 Allergic rhinitis [J30.9 (477.9)] 2022 BPH (benign prostatic hyperplasia) [N40.0 (600.00)] SP TOTAL PROTSTATECTOMY NOW. 2022 Infrarenal abdominal aortic aneurysm (AAA) without rupture [I71.43 (441.4) 0.3] Last addressed: Never 4.5 CM 4.5 CM 2022 Thoracic radiculitis [M54.14 (724.4)] Refer to pain management for nerve block consideration. MRI showing nerve impingement T2-T3, pt would like to consider nerve block. on lyrica to 600mg total daily dose, voltaren, and APAP 1g TID. Flexeril, steroid injection, and medrol dose milton did not help. Cont PT Refer to pain management for nerve block consideration. MRI showing nerve i mpingement T2-T3, pt would like to consider nerve block. on lyrica to 600mg total daily dose, voltaren, and APAP 1g TID. Flexeril, steroid injection, and medrol dose milton did not help. Cont PT I LOOKED AT ALL REPORTS FROM [facility] CT SHOWED MULTIFOCAL STROKE BUT THERE IS NO EVIDENCE OF A FIB. HE WILL CONTINUE ON ASPIRIN AND PLAVIX ELIQUIS SMALL DOSE IS FOR DVT PREVENTION PER DR. YOUNG AND NOT FOR STROKE. (2) CVA (cerebral vascular accident) Current Visit: Yes Status: Acute Plan: WATCH HIS SS. HE IS ANXIOUS. I SEE NO NEURO SIGNS TODAY. IF NUMBNESS CONTINUES WILL DO CT BRAIN. HE IS EXPECTING THAT HAND SHOULD GET BETTER QUICK BUT I EXPLAINED THAT WE DON'T KNOW IF IT WILL GET BACK TO NORMAL AND IT MAY TAKE MONTHS TO DO SO. Qualifiers: CVA mechanism: thrombosis (3) Leukocytosis Current Visit: Yes Status: Acute Plan: COULD FROM JESSICA INDUCED UTI. START CIPRO FOR A FEW DAYS. CULTURE PENDING. JESSICA CULTURE WILL SHOW COLONIZED BACTERIA.
[2023-03-19 10:40] LABS: Potassium 3.9 mEq/L (3.5-5.1)
[2023-03-19 11:06] LABS: Blood Morphology Comment NOT SEEN (NOT SEEN); Platelet Estimate ADEQ; White Blood Cell Scan OK (OK)
[2023-03-19] MEDS: ROSUVASTATIN 10 MG TAB PO SCH (20:53)
[2023-03-19] MEDS: TRAZODONE 50 MG TABLET PO SCH (20:54)
[2023-03-20] MEDS: PREGABALIN 150 MG CAP PO SCH ×2 (07:55→19:31)
[2023-03-20] MEDS: NEPRO SHAKE 237 ML CAN PO SCH ×2 (07:56→19:31)
[2023-03-20] MEDS: ASPIRIN 81 MG CHEWABLE TABLET PO SCH (07:56)
[2023-03-20] MEDS: NICOTINE 14 MG/PAT TD SCH (07:56)
[2023-03-20] MEDS: CIPROFLOXACIN HCL 250 MG TAB PO SCH ×2 (07:57→19:31)
[2023-03-20] MEDS: BACI/NEOMYCIN/POLY OINT 15GM TOP SCH ×2 (07:57→19:30)
[2023-03-20] MEDS: FERROUS SULFATE 325 MG TAB PO SCH (07:57)
[2023-03-20] MEDS: FENOFIBRATE 160 MG TAB PO SCH (07:57)
[2023-03-20] MEDS: FE SULF/FA/VIT B COMP & C TAB PO SCH (07:57)
[2023-03-20] MEDS: MAGNESIUM OXIDE 400 MG TAB PO SCH ×2 (07:57→19:30)
[2023-03-20] MEDS: APIXABAN 2.5 MG TABLET PO SCH ×2 (07:57→19:31)
[2023-03-20] MEDS: CYANOCOBALAMIN 1,000 MCG TAB PO SCH (07:58)
[2023-03-20] MEDS: FAMOTIDINE 20 MG TAB PO SCH (07:58)
[2023-03-20] MEDS: LIDOCAINE 4% PATCH TOP SCH (07:58)
[2023-03-20] MEDS: CLOPIDOGREL 75 MG TABLET PO SCH (07:58)
[2023-03-20] MEDS: CRANBERRY FRUIT EXTRACT 200 MG CAP PO SCH ×2 (07:58→19:31)
[2023-03-20] MEDS: carvediloL 3.125 MG TAB PO SCH ×2 (07:59→20:16)
[2023-03-20] MEDS: HYDROCODONE/APAP 5/325 MG TAB PO PRN ×3 (07:59→21:23)
[2023-03-20] MEDS: DOXAZOSIN 2 MG TAB PO SCH ×3 (08:00→20:16)
[2023-03-20] MEDS: PHENOL 1.4% ORAL SPRAY 180ML MM PRN (16:48)
[2023-03-20] MEDS: TRAZODONE 50 MG TABLET PO SCH (19:30)
[2023-03-20] MEDS: ROSUVASTATIN 10 MG TAB PO SCH (19:30)
[2023-03-21 04:41] LABS: Potassium 4.2 mEq/L (3.5-5.1)
[2023-03-21 04:44] LABS: Absolute Lymphocytes (CBC) 2.3 K/uL (0.7-4.9); Hematocrit 32.1 % (39.6-49.0); Lymphocytes % 15.2 % (15.3-44.8); MCV 91.8 fL (80-100); MPV 7.8 fL (7.6-11.3)
[2023-03-21] MEDS: HYDROCODONE/APAP 5/325 MG TAB PO PRN ×3 (07:20→21:32)
[2023-03-21] MEDS: NEPRO SHAKE 237 ML CAN PO SCH ×2 (07:21→20:32)
[2023-03-21] MEDS: ASPIRIN 81 MG CHEWABLE TABLET PO SCH (07:21)
[2023-03-21] MEDS: APIXABAN 2.5 MG TABLET PO SCH (07:21)
[2023-03-21] MEDS: PREGABALIN 150 MG CAP PO SCH ×2 (07:21→20:22)
[2023-03-21] MEDS: FE SULF/FA/VIT B COMP & C TAB PO SCH (07:22)
[2023-03-21] MEDS: CIPROFLOXACIN HCL 250 MG TAB PO SCH ×2 (07:22→20:22)
[2023-03-21] MEDS: carvediloL 3.125 MG TAB PO SCH ×2 (07:22→20:24)
[2023-03-21] MEDS: FERROUS SULFATE 325 MG TAB PO SCH (07:22)
[2023-03-21] MEDS: CRANBERRY FRUIT EXTRACT 200 MG CAP PO SCH ×2 (07:23→20:22)
[2023-03-21] MEDS: CLOPIDOGREL 75 MG TABLET PO SCH (07:23)
[2023-03-21] MEDS: CYANOCOBALAMIN 1,000 MCG TAB PO SCH (07:23)
[2023-03-21] MEDS: MAGNESIUM OXIDE 400 MG TAB PO SCH ×2 (07:23→20:24)
[2023-03-21] MEDS: FAMOTIDINE 20 MG TAB PO SCH (07:23)
[2023-03-21] MEDS: FENOFIBRATE 160 MG TAB PO SCH (07:40)
[2023-03-21] MEDS: DOXAZOSIN 2 MG TAB PO SCH ×2 (08:00→20:23)
[2023-03-21] MEDS: LIDOCAINE 4% PATCH TOP SCH (11:09)
[2023-03-21] MEDS: PHENOL 1.4% ORAL SPRAY 180ML MM PRN ×2 (11:10→20:24)
[2023-03-21] MEDS: NICOTINE 14 MG/PAT TD SCH (11:10)
[2023-03-21] MEDS: BACI/NEOMYCIN/POLY OINT 15GM TOP SCH ×2 (11:11→20:24)
[2023-03-21] MEDS: DULOXETINE 20 MG CAP PO SCH (14:05)
[2023-03-21 15:00] LABS: Hematocrit 33.3 % (39.6-49.0)
--- NOTE | 2023-03-21 17:17 | EKG ---
Test Date: 2023-03-18 Test Time: 14:38:34 Lint Cleaner: TAMMY MEASUREMENT RESULTS: Intervals: Rate: 74 VT: 146 QRSD: 98 QT: 388 QTc: 430 [place]: P: 48 VT: 146 QRS: 28 T: 22 INTERPRETIVE STATEMENTS: Normal sinus rhythm Nonspecific T wave abnormality Abnormal ECG Compared to ECG 03/03/2023 11:35:42 T-wave abnormality now present Electronically Signed On 03-21-23 17:12:16 CDT by Edgar Long
--- NOTE | 2023-03-21 19:47 | P.PN ---
Date of Service: 03/21/23 67yo gentleman with CAD p PCI with stents on Plavix, which patient stopped >9 days prior to surgery out of a self-professed concern to avoid bleeding, underwent RAL simple prostatectomy 03/17/23 complicated in the immediate post-op period by CVA with right sided weakness. He underwent inpatient evaluation including cervical and cerebral angiography, Echo, and neurology and cardiology consultations with early, POD#1, resumption of both ASA and Plavix as well as sqheparin prior to transfer to rehab. Urethral Nugent catheter in place with clear yellow urine at time of discharge, which has now become pink in association with use of Eliquis in addition to the Plavix and ASA in the post-op state. Agree with q4h and PRN manual bladder irrigation with 60cc PFNS, but would hold Eliquis and use either sqHeparin or Lovenox 30mg instead for DVT prophylaxis d/t reversibility if bleeding becomes significant. Avoid any attempts at "bladder training". I will conduct voiding trial on or after 03/30/23 after patient completes a cystogram confirming absence of bladder leak. Cipro x 3 days to start 03/29/23.
[2023-03-21] MEDS: TRAZODONE 50 MG TABLET PO SCH (20:22)
[2023-03-21] MEDS: ROSUVASTATIN 10 MG TAB PO SCH (20:22)
--- NOTE | 2023-03-21 20:40 | P.PN ---
Subjective Date of Service: 03/21/23 Chief Complaint: RIGHT UPPER LIMB WEAKNESS Subjective: No new changes, No C/O voiced HE IS STABLE. NO NEW ISSUES. THIS AM HE WAS STABLE. ONCE I LEFT ROOM HE COMPLAINED OF R FACIAL NUMBNESS THAT IS ALSO GETTING BETTER . HE IS STABLE HAS NO NEW ISSUES NO PAIN, NO FEVER. Physical Examination - Vital Signs Temperature: 97.4 F Blood Pressure: 149/69 Pulse: 73 Respirations: 18 Pulse Ox (%): 95 - Physical Exam General: Alert, In no apparent distress HEENT: Atraumatic, PERRLA, EOMI Neck: Supple, JVD not distended Respiratory: Clear to auscultation bilaterally, Normal air movement Cardiovascular: Regular rate/rhythm, Normal S1 S2 Gastrointestinal: Normal bowel sounds, No tenderness Musculoskeletal: No tenderness Integumentary: No rashes Neurological: Normal speech, Normal tone, Normal affect, Abnormal strength (RUL UNCHANGED.) Lymphatics: No axilla or inguinal lymphadenopathy - Studies Laboratory Data (last 24 hrs) 03/21/23 14:39: Hgb 10.9 L, Hct 33.3 L 03/21/23 03:48: Sodium 140, Potassium 4.2, BUN 20 H, Creatinine 1.33 H, Glucose 108 H 03/21/23 03:48: WBC 15.00 H, Hgb 10.8 L, Hct 32.1 L, Plt Count 403 Medications List Reviewed: Yes Assessment And Plan - Current Problems (Diagnosis) (1) Monoplegia of right arm Current Visit: Yes Status: Acute Plan: CONTINUE ASA AND PLAVIX HE GOES TO DR. MARTINEZ FOR CARDIAC CARE. HE IS STABLE. CONT PT AND OT. FOLLOWING ARE OTHER MEDICAL ISSUES. Coronary arteriosclerosis [I25.10 (414.00)] STENTS TWO. STENTS TWO. 2021 Sleep apnea [G47.30 (780.57)] 2021 Sleep apnea [G47.30 (780.57)] 2021 Back pain [M54.9 (724.5)] 2021 DJD (degenerative joint disease) [M19.90 (715.90)] 2021 Radiculitis, lumbosacral [M54.17 (724.4)] 2021 Hoarse voice quality [R49.0 (784.42)] 2021 Allergic rhinitis [J30.9 (477.9)] 2022 BPH (benign prostatic hyperplasia) [N40.0 (600.00)] SP TOTAL PROTSTATECTOMY NOW. 2022 Infrarenal abdominal aortic aneurysm (AAA) without rupture [I71.43 (441.4) 0.3] Last addressed: Never 4.5 CM 4.5 CM 2022 Thoracic radiculitis [M54.14 (724.4)] Refer to pain management for nerve block consideration. MRI showing nerve impingement T2-T3, pt would like to consider nerve block. on lyrica to 600mg total daily dose, voltaren, and APAP 1g TID. Flexeril, steroid injection, and medrol dose milton did not help. Cont PT Refer to pain management for nerve block consideration. MRI showing nerve impingement T2-T3, pt would like to consider nerve block. on lyrica to 600mg total daily dose, voltaren, and APAP 1g TID. Flexeril, steroid injection, and medrol dose milton did not help. Cont PT I LOOKED AT ALL REPORTS FROM [facility] CT SHOWED MULTIFOCAL STROKE BUT THERE IS NO EVIDENCE OF A FIB. HE WILL CONTINUE ON ASPIRIN AND PLAVIX ELIQUIS SMALL DOSE IS FOR DVT PREVENTION PER DR. YOUNG AND NOT FOR STROKE. (2) CVA (cerebral vascular accident) Current Visit: Yes Status: Acute Plan: WATCH HIS SS. HE IS ANXIOUS. I SEE NO NEURO SIGNS TODAY. IF NUMBNESS CONTINUES WILL DO CT BRAIN. HE IS EXPECTING THAT HAND SHOULD GET BETTER QUICK BUT I EXPLAINED THAT WE DON'T KNOW IF IT WILL GET BACK TO NORMAL AND IT MAY TAKE MONTHS TO DO SO. CONT PT Qualifiers: CVA mechanism: thrombosis (3) Leukocytosis Current Visit: Yes Status: Acute Plan: COULD FROM JESSICA INDUCED UTI. START CIPRO FOR A FEW DAYS. CULTURE PENDING. JESSICA CULTURE WILL SHOW COLONIZED BACTERIA. WBC IS SAME. NO SIGNS OF INFECTION.
--- NOTE | 2023-03-22 00:25 | PN ---
Date of Progress Note: 03/21/2023 Time Of Service: 1:00 p.m. Subjective: Mr. Way is resting in bed. He has no complaints. He does report slow improvement in t he dexterity in his right hand where the stroke has impacted him the most. Otherwise, no other signi ficant complaints. Review of Systems: No fevers, chills. No nausea, vomiting. No myalgias, arthralgias. Does have some feelings of anxie ty and shortness of breath despite oxygen saturation being in the high 90s such as 97, 98. This is w ithout oxygen and in terms of incentive spirometry, he can pull in over 3000 cc or 3 L without diffic ulty. Physical Examination: Vital Signs: Blood pressure 108/72, pulse 68-97, respiratory rate 16-20, temperature 97.4, oxygen sa turation 96% to 98% on room air. General: Mr. Way is resting in bed between therapy sessions. HEENT: Normocephalic, atraumatic. Sclerae anicteric. Oropharynx moist. Neck: Supple. Chest: Clear. Extremity: Right hand dexterity is improving. He has some difficulty touching the thumb to each fin pablo and was able to squeeze, close clip with mild resistance fairly well with the index finger and th umb. Otherwise, left upper and lower extremity, no wrist strength restriction. His coordination is slow, but intact in the upper and lower extremities. Laboratory Studies: Today, hemoglobin and hematocrit 10.9 and 33.3. Sodium 140, potassium 4.2, chlo ride 111, carbon dioxide 26, BUN 20, creatinine 1.33, calcium 8.4. X-ray/imaging: No new x-ray imaging. Consultations: He was seen by the cardiology service on the . Dr. Long came by. His recommen dation was that the patient is asymptomatic and he has sinus heart rate, doing well. No cardiac inte rvention was required. Patient is also followed by Dr. Arriaga, his primary care physician. Medications: Patient's medications have been reviewed and remained unchanged. He does have Eliquis 2.5 mg twice daily for DVT risk reduction. He is continuing Cipro 250 mg twice daily for urinary tra ct infection. He has Plavix 75 mg daily, in addition to antihypertensive medications with Cardura an d medication for rate control. He is to continue with Lyrica, Crestor, Senokot, and trazodone for in somnia. Current Functional Status: Today, bed mobility done with modified independence. He ambulated 250 fe et twice without an assistive device with standby assistance, up and down 5 steps with bilateral hand rails with standby assistance. With occupational therapy, toileting and bathing, independent; upper body dressing, lower body dressing, independent. Progress Towards Rehabilitation Goals: Mr. Way is making excellent progress towards his rehabilitat ion goals of becoming independent with upper and lower body dressing, transferring, toileting, shower ing, ambulating 250 feet with independence and going up and down 10 steps with independence. Does marshall ve some difficulty with dexterity in the right upper extremity and it is noted, he is left handed, wh ich is allowing him to do things very well given the dominant side not impacted by the stroke. Assessment: Mr. Way is a 67-year-old patient in the rehabilitation unit with a left hemispheric str tristian and right hemiparesis and coordination affecting the right upper extremity more than the lower ex tremity. He has comorbid hypertension, benign prostatic hypertrophy, coronary artery disease, acute on chronic renal injury, and anemia along with anxiety. Plan: 1.Physical and occupational therapy 3.5 hours, 5 of 7 days. 2.Continue trazodone for insomnia, stool softeners for constipation, Crestor for dyslipidemia, Roz a for neuropathic pain, Hemocyte Plus for anemia, lidocaine patch for localized pain. Aspirin, Plavi x Eliquis are currently continued and ciprofloxacin for urinary tract infection. Comorbids That Are Continuing To Impact Rehabilitation Process: He does have some episodes of anxiet y probably related to depression due to his prostate issues, which he is followed by Urology and the stroke with some residual incoordination in the right upper extremity and patient's medications may b e adjusted to include antidepressants, Cymbalta or duloxetine 20 mg twice daily. LB/MODL Voice ID: [id number] Report ID: [id number]
[2023-03-22] MEDS: NICOTINE 14 MG/PAT TD SCH (07:10)
[2023-03-22] MEDS: FE SULF/FA/VIT B COMP & C TAB PO SCH (07:11)
[2023-03-22] MEDS: CIPROFLOXACIN HCL 250 MG TAB PO SCH ×2 (07:11→19:43)
[2023-03-22] MEDS: LIDOCAINE 4% PATCH TOP SCH (07:11)
[2023-03-22] MEDS: FERROUS SULFATE 325 MG TAB PO SCH (07:11)
[2023-03-22] MEDS: CRANBERRY FRUIT EXTRACT 200 MG CAP PO SCH ×2 (07:11→19:42)
[2023-03-22] MEDS: DULOXETINE 20 MG CAP PO SCH (07:11)
[2023-03-22] MEDS: FAMOTIDINE 20 MG TAB PO SCH (07:12)
[2023-03-22] MEDS: CYANOCOBALAMIN 1,000 MCG TAB PO SCH (07:12)
[2023-03-22] MEDS: ASPIRIN 81 MG CHEWABLE TABLET PO SCH (07:12)
[2023-03-22] MEDS: FENOFIBRATE 160 MG TAB PO SCH (07:12)
[2023-03-22] MEDS: ENOXAPARIN 40 MG/0.4 ML SQ SCH (07:12)
[2023-03-22] MEDS: PREGABALIN 150 MG CAP PO SCH ×2 (07:12→19:43)
[2023-03-22] MEDS: carvediloL 3.125 MG TAB PO SCH ×2 (07:13→19:43)
[2023-03-22] MEDS: HYDROCODONE/APAP 5/325 MG TAB PO PRN ×3 (07:14→18:59)
[2023-03-22] MEDS: MAGNESIUM OXIDE 400 MG TAB PO SCH ×2 (07:27→19:42)
[2023-03-22] MEDS: NEPRO SHAKE 237 ML CAN PO SCH ×2 (08:00→19:44)
[2023-03-22] MEDS: DOXAZOSIN 2 MG TAB PO SCH ×2 (08:00→19:43)
[2023-03-22] MEDS: BACI/NEOMYCIN/POLY OINT 15GM TOP SCH ×3 (08:00→19:44)
[2023-03-22] MEDS: PHENOL 1.4% ORAL SPRAY 180ML MM PRN (08:55)
--- NOTE | 2023-03-22 12:56 | P.PN ---
Subjective Date of Service: 03/22/23 Chief Complaint: RIGHT UPPER LIMB WEAKNESS Subjective: Improving HE IS STABLE. NO NEW ISSUES. THIS AM HE WAS STABLE. ONCE I LEFT ROOM HE COMPLAINED OF R FACIAL NUMBNESS THAT IS ALSO GETTING BETTER . HE IS STABLE HAS NO NEW ISSUES NO PAIN, NO FEVER. STABLE. R HAND IS STRONGER PER HIM. Physical Examination - Vital Signs Temperature: 96.9 F Blood Pressure: 119/62 Pulse: 65 Respirations: 18 Pulse Ox (%): 96 - Physical Exam General: Alert, In no apparent distress HEENT: Atraumatic, PERRLA, EOMI Neck: Supple, JVD not distended Respiratory: Clear to auscultation bilaterally, Normal air movement Cardiovascular: Regular rate/rhythm, Normal S1 S2 Gastrointestinal: Normal bowel sounds, No tenderness Musculoskeletal: No tenderness Integumentary: No rashes Neurological: Normal speech, Normal tone, Normal affect, Abnormal strength (R HAND LATERAL POST STROKE WEAKNESS. 3/5.) Lymphatics: No axilla or inguinal lymphadenopathy - Studies Laboratory Data (last 24 hrs) 03/21/23 14:39: Hgb 10.9 L, Hct 33.3 L Medications List Reviewed: Yes Assessment And Plan - Current Problems (Diagnosis) (1) Monoplegia of right arm Current Visit: Yes Status: Acute Plan: CONTINUE ASA AND PLAVIX HE GOES TO DR. MARTINEZ FOR CARDIAC CARE. HE IS STABLE. CONT PT AND OT. FOLLOWING ARE OTHER MEDICAL ISSUES. Coronary arteriosclerosis [I25.10 (414.00)] STENTS TWO. STENTS TWO. 2021 Sleep apnea [G47.30 (780.57)] 2021 Sleep apnea [G47.30 (780.57)] 2 Back pain [M54.9 (724.5)] 2021 DJD (degenerative joint disease) [M19.90 (715.90)] 2 Radiculitis, lumbosacral [M54.17 (724.4)] 2021 Hoarse voice quality [R49.0 (784.42)] 2021 Allergic rhinitis [J30.9 (477.9)] 2022 BPH (benign prostatic hyperplasia) [N40.0 (600.00)] SP TOTAL PROTSTATECTOMY NOW. 2022 Infrarenal abdominal aortic aneurysm (AAA) without rupture [I71.43 (441.4) 0.3] Last addressed: Never 4.5 CM 4.5 CM 2022 Thoracic radiculitis [M54.14 (724.4)] Refer to pain management for nerve block consideration. MRI showing nerve impingement T2-T3, pt would like to consider nerve block. on lyrica to 600mg total daily dose, voltaren, and APAP 1g TID. Flexeril, steroid injection, and medrol dose milton did not help. Cont PT Refer to pain management for nerve block consideration. MRI showing nerve impingement T2-T3, pt would like to consider nerve block. on lyrica to 600mg total daily dose, voltaren, and APAP 1g TID. Flexeril, steroid injection, and medrol dose milton did not help. Cont PT I LOOKED AT ALL REPORTS FROM [facility] CT SHOWED MULTIFOCAL STROKE BUT THERE IS NO EVIDENCE OF A FIB. HE WILL CONTINUE ON ASPIRIN AND PLAVIX ELIQUIS SMALL DOSE IS FOR DVT PREVENTION PER DR. YOUNG AND NOT FOR STROKE. CONT PT. (2) CVA (cerebral vascular accident) Current Visit: Yes Status: Acute Plan: WATCH HIS SS. HE IS ANXIOUS. I SEE NO NEURO SIGNS TODAY. IF NUMBNESS CONTINUES WILL DO CT BRAIN. HE IS EXPECTING THAT HAND SHOULD GET BETTER QUICK BUT I EXPLAINED THAT WE DON'T KNOW IF IT WILL GET BACK TO NORMAL AND IT MAY TAKE MONTHS TO DO SO. CONT PT Qualifiers: CVA mechanism: thrombosis (3) Leukocytosis Current Visit: Yes Status: Acute Plan: COULD FROM [facility] INDUCED UTI. START CIPRO FOR A FEW DAYS. CULTURE PENDING. JESSICA CULTURE WILL SHOW COLONIZED BACTERIA. WBC IS SAME. NO SIGNS OF INFECTION. (4) Hematuria Current Visit: Yes Status: Acute Plan: POST OP BLOOD STAINED URINE STOPPED ELIQUIS. MAY TAKE DAYS TO CLEAR HEIS COUNSELED.
[2023-03-22 15:43] LABS: Hematocrit 33.4 % (39.6-49.0)
--- NOTE | 2023-03-22 17:07 | P.PN ---
Date of Service: 03/22/23 67yo gentleman with CAD p PCI with stents on Plavix, which patient stopped >9 days prior to surgery out of a self-professed concern to avoid bleeding, underwent RAL simple prostatectomy 03/17/23 complicated in the immediate post-op period by CVA with right sided weakness. He underwent inpatient evaluation including cervical and cerebral angiography, Echo, and neurology and cardiology consultations with early, POD#1, resumption of both ASA and Plavix as well as sqheparin prior to transfer to rehab. Urethral Nugent catheter in place with clear yellow urine at time of discharge, which has now become pink in association with use of Eliquis in addition to the Plavix and ASA in the post-op state. Patient currently undergoing q4h and PRN manual bladder irrigation with 60cc PFNS, and urine has remained light pink with no significant clots. Last dose of Eliquis given yesterday and patient on Lovenox 40 from today. Patient seen and examined. Doing much better and progressing with his rehabilitation. Significant improvement in his strength subjectively. Examination: Patient well-appearing and in no acute distress Alert, awake, oriented x3 No dyspnea or sign of respiratory distress Abdomen soft, nontender Right upper extremity strength 4-4.5 out of 5 Urethral Nug[address] catheter in place with cranberry colored urine draining. Bladder irrigation procedure note: I irrigated his catheter with about 250 cc of normal saline using a 60 cc catheter tip syringe. I removed a small quantity of clot, and in the end, the urine was light pink. Recommendation: -Ditropan XL 5 mg p.o. daily for bladder spasms. Do not take within 24 hours of scheduled voiding trial. -Continue to hold Eliquis and Lovenox for DVT prophylaxis reasonable -Continue Plavix -I will conduct voiding trial on or after 03/30/23 after patient completes a cystogram confirming absence of bladder leak. -Bactrim DS x 3 days to start 03/29/23 in preparation for cystogram and voiding trial on 03/30/2023.
[2023-03-22] MEDS: OXYBUTYNIN ER 5 MG TAB PO SCH (17:58)
[2023-03-22] MEDS: ROSUVASTATIN 10 MG TAB PO SCH (19:42)
[2023-03-22] MEDS: TRAZODONE 50 MG TABLET PO SCH (22:00)
--- NOTE | 2023-03-23 05:04 | PN ---
[id number] Progress Note Visit. Subjective: Mr. Way reports ongoing blood in the urine with his Nugent. Otherwise, denie s any new complaints. He is somewhat worried about going home and would like to improve even more. Review of Systems: No recent fevers or chills. No significant myalgias. There is improvement in the right upper extrem ity dexterity and strength. He is worried about blood in his Nugent. Medications: Have been reviewed. He is off Eliquis, which is likely a contributing factor to the bl eeding. Physical Examination: Vital Signs: Blood pressure 130/62, pulse is 71, respiratory rate 16, temperature 97.7, oxygen satur ation 92%. Extremities: His strength in the right upper extremities is at least 4/5. Coordination is slow, but intact in the right hand and left side has full strength. Laboratory Studies: Hemoglobin is 9.9, hematocrit 33.4. X-ray/imaging: No new x-ray/imaging. Current Functional Status: Today, he did ambulate 750 feet with modified independence and no assisti ve device. Ascended 15 steps twice, sideway stepping, up and down with supervision with occupational therapy, independent with toileting, upper and lower body dressing and grooming. Does have improved coordination, but requires more work in the right upper extremity. Progress Towards Rehabilitation Goals: Mr. Way has made excellent progress towards his rehabilitati on goals of becoming independent with upper and lower body dressing, transferring, toileting, showeri ng, and ambulating now 700 feet with modified independence and up and down 15 steps with modified ind ependence. He does have some issues of the bladder with blood in the urine and he is followed by the Urology Service. Assessment: Mr. Way is a 67-year-old patient in the rehabilitation unit with stroke affecting the r ight upper extremity with incoordination, weakness, and he has comorbid conditions including hyperten guanakito, prostate hypertrophy, status post urological surgery, coronary artery disease, and anemia along with anxiety. Plan: 1.Continue with physical and occupational therapy 3.5 hours, 5 of 7 days. 2.He is followed by Dr. Phipps on the Urology Service. He is on aspirin. Eliquis has been discont inued. He has completed ciprofloxacin for urinary tract infection. He has Hemocyte Plus for anemia, lidocaine patch for pain, Crestor for dyslipidemia, trazodone for insomnia. Comorbids That Are Continuing To Impact Rehabilitation Process: Given the blood in his urine, again, his Eliquis was discontinued and he is followed by Dr. Phipps on the Urology Service and will have additional studies done to help evaluate and treat him as he heals from the Urological Surgery. WINNIE/GUS Voice ID: [id number] Report ID: [id number]
[2023-03-23] MEDS: LIDOCAINE 4% PATCH TOP SCH (07:45)
[2023-03-23] MEDS: NICOTINE 14 MG/PAT TD SCH (07:45)
[2023-03-23] MEDS: ENOXAPARIN 40 MG/0.4 ML SQ SCH (07:45)
[2023-03-23] MEDS: NEPRO SHAKE 237 ML CAN PO SCH ×2 (08:00→19:54)
[2023-03-23] MEDS: DOXAZOSIN 2 MG TAB PO SCH ×2 (08:00→19:53)
[2023-03-23] MEDS: HYDROCODONE/APAP 5/325 MG TAB PO PRN ×2 (08:07→19:06)
[2023-03-23] MEDS: ASPIRIN 81 MG CHEWABLE TABLET PO SCH (08:47)
[2023-03-23] MEDS: DULOXETINE 20 MG CAP PO SCH (08:47)
[2023-03-23] MEDS: CIPROFLOXACIN HCL 250 MG TAB PO SCH ×2 (08:47→19:54)
[2023-03-23] MEDS: PREGABALIN 150 MG CAP PO SCH ×2 (08:47→19:53)
[2023-03-23] MEDS: FE SULF/FA/VIT B COMP & C TAB PO SCH (08:47)
[2023-03-23] MEDS: BACI/NEOMYCIN/POLY OINT 15GM TOP SCH ×2 (08:52→19:53)
[2023-03-23] MEDS: FERROUS SULFATE 325 MG TAB PO SCH (08:52)
[2023-03-23] MEDS: CYANOCOBALAMIN 1,000 MCG TAB PO SCH (08:52)
[2023-03-23] MEDS: CRANBERRY FRUIT EXTRACT 200 MG CAP PO SCH ×2 (08:52→19:53)
[2023-03-23] MEDS: FENOFIBRATE 160 MG TAB PO SCH (08:53)
[2023-03-23] MEDS: carvediloL 3.125 MG TAB PO SCH ×2 (08:53→19:53)
[2023-03-23] MEDS: OXYBUTYNIN ER 5 MG TAB PO SCH (08:53)
[2023-03-23] MEDS: FAMOTIDINE 20 MG TAB PO SCH (08:53)
[2023-03-23] MEDS: MAGNESIUM OXIDE 400 MG TAB PO SCH ×2 (09:31→19:53)
[2023-03-23] MEDS: TRAZODONE 50 MG TABLET PO SCH (19:53)
[2023-03-23] MEDS: ROSUVASTATIN 10 MG TAB PO SCH (19:53)
[2023-03-23] MEDS: PHENOL 1.4% ORAL SPRAY 180ML MM PRN (19:53)
--- NOTE | 2023-03-23 21:19 | P.PN ---
Subjective Date of Service: 03/23/23 Chief Complaint: RIGHT UPPER LIMB WEAKNESS Subjective: Improving HE IS STABLE. SLOW IMPROVEMENT. HE HAD HEMATURIA FROM [facility] BUT STABLE. Physical Examination - Vital Signs Temperature: 97.4 F Blood Pressure: 126/71 Pulse: 60 Respirations: 18 Pulse Ox (%): 96 - Physical Exam General: Oriented x3, Mild distress HEENT: Atraumatic, PERRLA, EOMI Neck: Supple, JVD not distended Respiratory: Clear to auscultation bilaterally, Normal air movement Cardiovascular: Regular rate/rhythm, Normal S1 S2 Gastrointestinal: Normal bowel sounds, No tenderness Musculoskeletal: No tenderness Integumentary: No rashes Neurological: Abnormal strength (R HAND UNCHANGED. 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 MARTINEZ FOR CARDIAC CARE. HE IS STABLE. CONT PT AND OT. FOLLOWING ARE OTHER MEDICAL ISSUES. Coronary arteriosclerosis [I25.10 (414.00)] STENTS TWO. STENTS TWO. 2022 Sleep apnea [G47.30 (780.57)] 2022 Sleep apnea [G47.30 (780.57)] 2022 Back pain [M54.9 (724.5)] 202 DJD (degenerative joint disease) [M19.90 (715.90)] 2022 Radiculitis, lumbosacral [M54.17 (724.4)] 202 Hoarse voice quality [R49.0 (784.42)] 2022 Allergic rhinitis [J30.9 (477.9)] 202 BPH (benign prostatic hyperplasia) [N40.0 (600.00)] SP TOTAL PROTSTATECTOMY NOW. 2022 Infrarenal abdominal aortic aneurysm (AAA) without rupture [I71.43 (441.4) 0.3] Last addressed: Never 4.5 CM 4.5 CM 202 Thoracic radiculitis [M54.14 (724.4)] Refer to pain management for nerve block consideration. MRI showing nerve impingement T2-T3, pt would like to consider nerve block. on lyrica to 600mg total daily dose, voltaren, and APAP 1g TID. Flexeril, steroid injection, and medrol dose milton did not help. Cont PT Refer to pain management for nerve block consideration. MRI showing nerve impingement T2-T3, pt would like to consider nerve block. on lyrica to 600mg total daily dose, voltaren, and APAP 1g TID. Flexeril, steroid injection, and medrol dose milton did not help. Cont PT I LOOKED AT ALL REPORTS FROM [facility] CT SHOWED MULTIFOCAL STROKE BUT THERE IS NO EVIDENCE OF A FIB. HE WILL CONTINUE ON ASPIRIN AND PLAVIX ELIQUIS SMALL DOSE IS FOR DVT PREVENTION PER DR. YOUNG AND NOT FOR STROKE. CONT PT. (2) CVA (cerebral vascular accident) Current Visit: Yes Status: Acute Plan: WATCH HIS SS. HE IS ANXIOUS. I SEE NO NEURO SIGNS TODAY. IF NUMBNESS CONTINUES WILL DO CT BRAIN. HE IS EXPECTING THAT HAND SHOULD GET BETTER QUICK BUT I EXPLAINED THAT WE DON'T KNOW IF IT WILL GET BACK TO NORMAL AND IT MAY TAKE MONTHS TO DO SO. CONT PT Qualifiers: CVA mechanism: thrombosis (3) Leukocytosis Current Visit: Yes Status: Acute Plan: COULD FROM [facility] INDUCED UTI. START CIPRO FOR A FEW DAYS. CULTURE PENDING. [facility]ESSICA CULTURE WILL SHOW COLONIZED BACTERIA. WBC IS SAME. NO SIGNS OF INFECTION. (4) Hematuria Current Visit: Yes Status: Acute Plan: POST OP BLOOD STAINED URINE STOPPED ELIQUIS. MAY TAKE DAYS TO CLEAR HEIS COUNSELED.
--- NOTE | 2023-03-23 23:40 | PN ---
Date of Progress Note: 03/23/2023 Time Of Service: 1:00 p.m. Subjective: Mr. Way is resting in bed. He is still worried about the blood in his Nugent catheter. He was seen by Dr. Phipps on the urology service and the catheter is being flushed. The patient's discharge is held as that blood is not cleared as of yet. He did stop anticoagulation and may take a nother day or two for the urine to clear. Review of Systems: As noted, there was blood in the Nugent catheter. Otherwise, no myalgias, arthralgias. No rash, head ache, weight change. Physical Examination: Vital Signs: Blood pressure 126/71, pulse of 60, respiratory rate 18, temperature 97.4, oxygen satur ation 96% on room air. General: Mr. Way is resting in bed. Extremities: His right hand strength has recovered very well from his stroke. He has more dexterity , coordination, and strength in the right upper extremity. He has good strength in the right lower e xtremity and on the left side. Laboratory Studies: Today, his hemoglobin and hematocrit remained stable at 10.9 and 33.4. X-ray/imaging: No new x-ray imaging. Medications: Again, medications have been adjusted. Currently, he is on [place] 5/325 every 6 hours, Ventolin inhaler 2.5 mg nebulizer every 6 hours as needed, aspirin 81 mg daily, Coreg 3.125 mg twice daily, vitamin B12 1000 mcg daily, Cardura 1 mg twice daily, Cymbalta 20 mg daily, Lovenox 40 mg subc utaneous daily, Nepro shake 237 mL twice daily, Pepcid 20 mg daily, Tricor 160 mg daily, ferrous sulf ate 325 mg daily, Atrovent 0.5 mg nebulizer every 6 hours as needed, lidocaine patch 2 patches daily as needed, milk of magnesia 30 mL as needed, magnesium oxide 400 mg twice daily, melatonin 3 mg at be dtime, Hemocyte Plus 1 tablet daily, Neosporin ointment apply topically twice daily, Nicoderm patch 1 4 mg daily, Ditropan XL 10 mg daily. He has a phenol spray for sore throat, Lyrica 300 mg twice jarret y, Crestor 20 mg at bedtime. Senokot S 2 at bedtime, Desyrel 100 mg at bedtime, trimethoprim/ sulfame thoxazole 1 tablet twice daily. Current Functional Status: Today, Mr. Way was able to walk indoors and outdoors keeping his balance and focus without loss of balance and he did so independently. He covered another 500 feet twice an d 700 feet with independence without an assistive device. He was up and down 25 steps with bilateral handrails independently. With his occupational therapy, independent with shower, bathing, upper and lower body dressing was also independent. Assessment: Mr. Way is a 67-year-old patient in the rehabilitation unit with left hemispheric strok e affecting his right upper extremity with incoordination and weakness especially in the right hand. He does have significant blood in the urine, which has been improving after his recent prostate surg maryam. He is followed by Dr. Phipps and Dr. Arriaga, his primary care physician. He does have hyperten guanakito, prostate hypertrophy, coronary artery disease, anemia, and anxiety. Plan: 1.Continue with physical and occupational therapy for 3 hours, 5 of 7 days. 2.Continue aspirin and Lovenox. Eliquis has been discontinued. 3.He is on Bactrim for urinary tract infection. 4.Hemocyte Plus for anemia. 5.Lidocaine patch for pain. 6.Crestor for dyslipidemia and trazodone for insomnia. Comorbids That Continuing To Impact His Rehabilitation Process: At this point, the blood in the urin e is the most impactful factor here. He is awaiting it to clear up before being discharged. Constantine means and in terms of his goals for physical and occupational therapy, he has met them and has done exc ellent with that. WINNIE/MODL Voice ID: [id number] Report ID: [id number]
[2023-03-24 04:25] LABS: Absolute Lymphocytes (CBC) 2.8 K/uL (0.7-4.9); Hematocrit 32.9 % (39.6-49.0); Lymphocytes % 23.5 % (15.3-44.8); MCV 91.7 fL (80-100); MPV 7.5 fL (7.6-11.3); RBC Red Blood Cell Count 3.59 M/uL (4.33-5.43)
[2023-03-24 04:54] LABS: Albumin 2.6 g/dL (3.4-5.0); Magnesium 2.4 mg/dL (1.6-2.4); Potassium 4.3 mEq/L (3.5-5.1); Prealbumin 25.6 mg/dL (20-40)
[2023-03-24 05:19] LABS: Blood Morphology Comment NOT SEEN (NOT SEEN); Platelet Estimate ADEQ
[2023-03-24] MEDS: NEPRO SHAKE 237 ML CAN PO SCH ×2 (08:00→20:47)
[2023-03-24] MEDS: DOXAZOSIN 2 MG TAB PO SCH ×2 (08:00→20:46)
[2023-03-24] MEDS: NICOTINE 14 MG/PAT TD SCH (08:08)
[2023-03-24] MEDS: LIDOCAINE 4% PATCH TOP SCH (08:09)
[2023-03-24] MEDS: ASPIRIN 81 MG CHEWABLE TABLET PO SCH (08:13)
[2023-03-24] MEDS: OXYBUTYNIN ER 5 MG TAB PO SCH (08:14)
[2023-03-24] MEDS: FE SULF/FA/VIT B COMP & C TAB PO SCH (08:14)
[2023-03-24] MEDS: CRANBERRY FRUIT EXTRACT 200 MG CAP PO SCH ×2 (08:14→20:46)
[2023-03-24] MEDS: PREGABALIN 150 MG CAP PO SCH ×2 (08:14→20:46)
[2023-03-24] MEDS: MAGNESIUM OXIDE 400 MG TAB PO SCH ×2 (08:14→20:47)
[2023-03-24] MEDS: DULOXETINE 20 MG CAP PO SCH (08:15)
[2023-03-24] MEDS: FERROUS SULFATE 325 MG TAB PO SCH (08:15)
[2023-03-24] MEDS: FAMOTIDINE 20 MG TAB PO SCH (08:15)
[2023-03-24] MEDS: FENOFIBRATE 160 MG TAB PO SCH (08:15)
[2023-03-24] MEDS: CYANOCOBALAMIN 1,000 MCG TAB PO SCH (08:15)
[2023-03-24] MEDS: BACI/NEOMYCIN/POLY OINT 15GM TOP SCH ×2 (08:16→20:45)
[2023-03-24] MEDS: carvediloL 3.125 MG TAB PO SCH ×2 (08:16→20:46)
[2023-03-24] MEDS: PHENOL 1.4% ORAL SPRAY 180ML MM PRN ×2 (08:16→20:45)
[2023-03-24] MEDS: HYDROCODONE/APAP 5/325 MG TAB PO PRN ×2 (08:24→15:53)
[2023-03-24] MEDS: TRAZODONE 50 MG TABLET PO SCH (20:45)
[2023-03-24] MEDS: ROSUVASTATIN 10 MG TAB PO SCH (20:45)
--- NOTE | 2023-03-24 22:40 | PN ---
Date of Progress Note: 03/24/2023 Time Of Service: 1:00 p.m. Subjective: Mr. Way is resting in bed. Continues to be worried about the blood in his Nugent, but i t is clearing slowly and will be ready for discharge once that is done. Review of Systems: Again, blood in the Nugent catheter. Otherwise, no fevers, chills, nausea, vomiting. Some mild pain in the abdominal area where he had surgery. No other positives on review of systems. Physical Examination: Vital Signs: Blood pressure 136/60, pulse , respiratory rate 16, temperature 97.6, oxygen saturation 94%. General: Mr. Way is resting in bed. His is at bedside. HEENT: He is normocephalic, atraumatic. Sclerae anicteric. Oropharynx pink and moist. Neck: Supple. Chest: Clear. Heart: Regular. : His Nugent catheter does have blood that is actually red tinge as it is irrigated with saline. Laboratory Studies: White blood cell count 11.7 on the , on the , it was 15. Neutrophils ar e 64.9, lymphocytes 23. His hemoglobin is very stable at 11 on the and on the th also 11. So dium 140, potassium 4.3, chloride 110, carbon dioxide 29, creatinine 1.7. Prealbumin 25.6. X-ray/imaging: No new x-rays or imaging. Medications: Medications have been reviewed and changes include stopping any Lovenox, Eliquis, and P lavix. He continues aspirin 81 mg daily and has SCDs for DVT prophylaxis. He continues Coreg 3.125 mg twice daily, vitamin B12 1000 mcg daily, Cardura 1 mg twice daily, [place] 5/325 every 6 hours as ne eded, extra-strength Tylenol 500 mg every 6 hours, nebulizer with albuterol 2.5 mg every 6 hours as n eeded, Tricor 160 mg daily, Pepcid 20 mg daily, Nepro shake 237 mL twice daily, Cymbalta 20 mg daily, milk of magnesia 30 mL daily, magnesium oxide 400 mg twice daily, melatonin 3 at bedtime, Hemocyte P dru 1 tablet daily, nicotine patch 14 mg daily, Ditropan XL 10 mg daily, Lyrica 300 mg twice daily, C restor 20 mg at bedtime, and trazodone 100 mg at bedtime. Current Functional Status: Currently, Mr. Way is independent, ambulating without an assistive devic e over 500 feet and 750 feet twice. Also, independent going up and down 22 steps using 1 side of th e hand of the rails. He is independent with mobilization and tasks done with occupational therapy. Progress Towards Rehabilitation Goals: Mr. Way has met all of his rehabilitation goals of independe nce with upper and lower body dressing, transferring, toileting, showering, and ambulating now 750 fe et multiple times independently, up and down 25 steps independently. His limiting factor is blood in the Nugent and once that clears, he will be discharged home. Assessment: Mr. Way is a 67-year-old patient in the rehabilitation unit with a stroke with right-si ded paresis including the upper extremity, which is improving very well. He has recent prostate surg maryam and he has some ongoing bleeding in the Nugent catheter. He has hypertension, prostate hypertroph y, coronary artery disease, stable anemia, and anxiety. Plan: 1.Continue with physical and occupational therapy for 3 hours a day, 5 of 7 days. 2.He is just on aspirin. Lovenox and Eliquis have been discontinued. 3.He finished his Bactrim for urinary tract infection and his white blood cell count is not normal. Continue Hemocyte Plus for anemia. Continue lidocaine patch for pain. Continue Crestor for dyslipi demia. 4.Continue trazodone for insomnia. Comorbids That Continuing To Impact His Rehabilitation Process: The most impactful comorbidity is th e blood in urine after his prostate surgery. Once it clears, he will be ready for discharge home as he has met all of his physical and occupational therapy goals and has done an excellent job. WINNIE/GUS Voice ID: [id number] Report ID: [id number]
[2023-03-24 23:46] VITALS: O2SAT 94
[2023-03-25 06:52] VITALS: BP 137/81; TEMP 97
[2023-03-25] MEDS: LIDOCAINE 4% PATCH TOP SCH ×2 (08:00→08:17)
[2023-03-25] MEDS: NEPRO SHAKE 237 ML CAN PO SCH (08:00)
[2023-03-25] MEDS: NICOTINE 14 MG/PAT TD SCH (08:17)
[2023-03-25] MEDS: CRANBERRY FRUIT EXTRACT 200 MG CAP PO SCH (08:19)
[2023-03-25] MEDS: OXYBUTYNIN ER 5 MG TAB PO SCH (08:19)
[2023-03-25] MEDS: DULOXETINE 20 MG CAP PO SCH (08:20)
[2023-03-25] MEDS: carvediloL 3.125 MG TAB PO SCH (08:20)
[2023-03-25] MEDS: ASPIRIN 81 MG CHEWABLE TABLET PO SCH (08:20)
[2023-03-25] MEDS: FE SULF/FA/VIT B COMP & C TAB PO SCH (08:20)
[2023-03-25] MEDS: FAMOTIDINE 20 MG TAB PO SCH (08:20)
[2023-03-25] MEDS: FENOFIBRATE 160 MG TAB PO SCH (08:20)
[2023-03-25] MEDS: PREGABALIN 150 MG CAP PO SCH (08:20)
[2023-03-25] MEDS: FERROUS SULFATE 325 MG TAB PO SCH (08:20)
[2023-03-25] MEDS: CYANOCOBALAMIN 1,000 MCG TAB PO SCH (08:21)
[2023-03-25] MEDS: BACI/NEOMYCIN/POLY OINT 15GM TOP SCH (08:21)
[2023-03-25] MEDS: HYDROCODONE/APAP 5/325 MG TAB PO PRN ×2 (08:21→14:53)
[2023-03-25] MEDS: DOXAZOSIN 2 MG TAB PO SCH (08:21)
[2023-03-25] MEDS: MAGNESIUM OXIDE 400 MG TAB PO SCH (09:04)
--- NOTE | 2023-03-25 13:49 | P.RH.PN ---
Estimated Length of Stay: 10 Expected Discharge Date: 03/25/23 Discharge Disposition Plan: Home Family Support: Yes [facility] Goal: Mobility, Transfers, Self Care Vital Signs: Last Vital Signs Temp 97.0 F 03/25/23 06:51 Pulse 67 03/25/23 08:21 Resp 12 03/25/23 08:21 BP 137/81 03/25/23 08:21 Pulse Ox 94 03/25/23 08:21 Laboratory: Laboratory Last Values WBC 11.70 thou/uL (4.3-10.9) H 03/24/23 03:55 RBC 3.59 M/uL (4.33-5.43) L 03/24/23 03:55 Hgb 11.0 g/dL (13.6-17.9) L 03/24/23 03:55 Hct 32.9 % (39.6-49.0) L 03/24/23 03:55 MCV 91.7 fL (80-100) 03/24/23 03:55 MCH 30.6 pg (27.0-35.0) 03/24/23 03:55 MCHC 33.4 g/dL (32.0-36.0) 03/24/23 03:55 RDW 14.4 % (12.1-15.2) 03/24/23 03:55 Plt Count 468 thou/uL (152-406) H 03/24/23 03:55 MPV 7.5 fL (7.6-11.3) L 03/24/23 03:55 Neutrophils % 64.9 % (41.7-73.7) 03/24/23 03:55 Lymphocytes % 23.5 % (15.3-44.8) 03/24/23 03:55 Monocytes % 7.8 % (3.3-12.3) 03/24/23 03:55 Eosinophils % 2.5 % (0-4.4) 03/24/23 03:55 Basophils % 1.3 % (0-1.3) 03/24/23 03:55 Absolute Neutrophils 7.6 K/uL (1.8-8.0) 03/24/23 03:55 Segmented Neutrophils 54 % (40-80) 03/24/23 03:55 Band Neutrophils 2 % (0-1) H 03/24/23 03:55 Absolute Lymphocytes 2.8 K/uL (0.7-4.9) 03/24/23 03:55 Lymphocytes 34 % (15-42) 03/24/23 03:55 Monocytes 5 % (0-10) 03/24/23 03:55 Absolute Monocytes 0.9 K/uL (0.1-1.3) 03/24/23 03:55 Eosinophils 2 % (0-3) 03/24/23 03:55 Absolute Eosinophils 0.3 K/uL (0-0.5) 03/24/23 03:55 Basophils 1 % (0-1) 03/24/23 03:55 Absolute Basophils 0.2 K/uL (0-0.5) 03/24/23 03:55 Reactive Lymphocytes 2 % 03/24/23 03:55 Platelet Estimate Adeq 03/24/23 03:55 Morphology Comment Not seen (NOT SEEN) 03/24/23 03:55 Sodium 140 mEq/L (136-145) 03/24/23 03:55 Potassium 4.3 mEq/L (3.5-5.1) 03/24/23 03:55 Chloride 110 mEq/L (98-107) H 03/24/23 03:55 Carbon Dioxide 29 mEq/L (21-32) 03/24/23 03:55 Anion Gap 5.3 mEq/L (5.0-15.0) 03/24/23 03:55 BUN 31 mg/dL (7-18) H 03/24/23 03:55 Creatinine 1.70 mg/dL (0.70-1.30) H 03/24/23 03:55 Est GFR (CKD-EPI) 44 ml/min (=/>90) L 03/24/23 03:55 Glucose 102 mg/dL (74-106) 03/24/23 03:55 Calcium 8.5 mg/dL (8.5-10.1) 03/24/23 03:55 Magnesium 2.4 mg/dL (1.6-2.4) 03/24/23 03:55 Albumin 2.6 g/dL (3.4-5.0) L 03/24/23 03:55 Prealbumin 25.6 mg/dL (20-40) 03/24/23 03:55 Urine Color Colorless (Yellow) 03/16/23 20:40 Urine Clarity Turbid (Clear) H 03/16/23 20:40 Urine pH 7.5 (5.0-7.0) H 03/16/23 20:40 Ur Specific [place] 1.011 (1.005-1.030) 03/16/23 20:40 Glucose (UA)(Auto) Negative (Negative) 03/16/23 20:40 Urine Ketones Negative (Negative) 03/16/23 20:40 Urine Blood 3+ (over) (Negative) H 03/16/23 20:40 Urine Nitrite Negative (Negative) 03/16/23 20:40 Urine Bilirubin Negative (Negative) 03/16/23 20:40 Urine Urobilinogen Normal (Normal) 03/16/23 20:40 Ur Leukocyte Esterase 250 [place]/uL (Negative) H 03/16/23 20:40 Urine RBC >50 /HPF (None Seen) H 03/16/23 20:40 Urine WBC 20-50 /HPF (<5) H 03/16/23 20:40 Ur Squamous Epith Cells None seen /HPF (None Seen) 03/16/23 20:40 U Non-Squamous Epi Cells <5 /HPF (None Seen) 03/16/23 20:40 Urine Bacteria <20 /HPF (<20) 03/16/23 20:40 Urine Mucus Slight /HPF (None Seen) 03/16/23 20:40 Urine Culture Reflexed Reflexed 03/16/23 20:40 Urine Total Protein Trace (Negative) H 03/16/23 20:40 Smear Scan Ok (OK) 03/19/23 10:21 Weight: 220 lb 9.6 oz Wound Present: No Closed Surgical Incision Present: Yes Physician Update: He still has bleeding in the hsin and and will follow up with Dr. Phipps and Dr. Arriaga. His H&H is stable. He is doing very well with independence with all physical and occupational therapy. 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 Summary: Patient's care plan and custodial goals have been reviewed and revised as necessary. Please see the Rehabilitation Signature page for all necessary signatures.
[2023-03-31] MEDS ORDERED: SMZ./TMP. 800/160 MG TABLET PO SCH (08:00)
== END 2023-03-25 15:00 | disposition home health service (06) | DRG 57 ==
LOC: 5TH 03-16 14:30
PROVIDERS: ADMIT Psychiatry & Neurology Neurology with Special Qualifications in Child Neurology; ATTEND Psychiatry & Neurology Neurology with Special Qualifications in Child Neurology
PROC: 3E1K78Z Irrigation of Genitourinary Tract using Irrigating Substance, Via Natural or Artificial Opening (ICD-10-PCS; principal; 2023-03-22)
DX: I69.351 Hemiplegia and hemiparesis following cerebral infarction affecting right dominant side (principal); N17.9 Acute kidney failure, unspecified; N99.820 Postprocedural hemorrhage of a genitourinary system organ or structure following a genitourinary system procedure; Z48.816 Encounter for surgical aftercare following surgery on the genitourinary system; K21.9 Gastro-esophageal reflux disease without esophagitis; I25.10 Atherosclerotic heart disease of native coronary artery without angina pectoris; E78.5 Hyperlipidemia, unspecified; G47.33 Obstructive sleep apnea (adult) (pediatric); I73.9 Peripheral vascular disease, unspecified; F17.200 Nicotine dependence, unspecified, uncomplicated; N40.0 Benign prostatic hyperplasia without lower urinary tract symptoms; R00.1 Bradycardia, unspecified; E66.9 Obesity, unspecified; I12.9 Hypertensive chronic kidney disease with stage 1 through stage 4 chronic kidney disease, or unspecified chronic kidney disease; N18.9 Chronic kidney disease, unspecified; R31.9 Hematuria, unspecified; F41.9 Anxiety disorder, unspecified; Z68.30 Body mass index [BMI] 30.0-30.9, adult; Z95.5 Presence of coronary angioplasty implant and graft
CPT/HCPCS: 36415; 71045; 80048; 81001; 82040; 83735; 84134; 85014; 85018; 85025; 87086; 87088; 93005; 94010; 97032; 97110; 97112; 97116; 97162; 97163; 97165; 97530; J1650; J2001; J7613; J7644

== ENCOUNTER 2023-08-28 17:10 | Observation (INO) | payer OTHER ==
--- OUTSIDE RECORDS SUMMARY | 2023-08-28 17:21 | XMS REPORT | Continuity of Care Document ---
:1955 Author Organization [facility] t Address [address] [facility] [address] [place] [address] Care Team Providers Name Role Phone No, Pcp [facility] Primary Care Physician Unavailable CHRIS MONROE Attending Clinician Unavailable Chris Monroe MD Attending Clinician Danny Khan MD Attending Clinician Mono Peraza MD Attending Clinician CHRIS MONROE Admitting Clinician Unavailable Payers Payer Name Policy Type Policy Number Effective Date Expiration Date S donaldo MEDICARE A B [id number] 2021 00:00:00 [facility] [id number] 2022 INDEMNITY 00:00:00 [employer]IG[employer] INDEMNITY [id number] 2022 00:00:00 [place] [address] [id number] Common [facility] Problems Condition Condition Condition Status Onset Resolution Last Treating Co mments Source Name Details Category Date Date Treatment Clinician Date BPH with BPH with Disease Active [facility] obstruct[facility] obstructio 6-15 Rosalia kes n/lower n/lower 00:00: Medical urinary urinary 00 Center tract tract symptoms symptoms [id number] Left renal Problem Co mmon mass [facility] Benign Benign Problem Common enlargemen enlargemen Sp martha t of t of - [facility] prostate prostate [facility] [id number] H/O: CVA Problem Comm on (cerebrova Spirit wiular - [facility] accident) [facility] [id number] Urinary Problem Common urgency [facility] Chronic Chronic Problem Common renal kidney [facility] failure disease - [facility] syndrome (CKD) [facility] [id number] Cerebrovas Problem C ommon [id number] cular [facility] accident - [facility] (CVA) 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 [id number] S/P Problem Common prostatect [facility] lavonne [facility] Obstructiv Other Problem Commo n e uropathy obstructiv Sp martha e [id number] Prostate Problem Com mon nodule [facility] [id number] Complex Problem Commo n renal cyst [facility] [id number] Other Problem Common retention [facility] of urine [facility] [id number] Elevated Problem Comm on PSA [facility] Allergies, Adverse Reactions, Alerts Allergy Allergy Status Severity Reaction(s) Onset Inactive Treating Comm ents Source Name Type Date Date Clinician NO KNOWN Allergy Active [facility] Social History Social Habit Start Date Stop Date Quantity Comments Source History of tobacco Smokes tobacco [facility] Sexual orientation [facility] Alcohol intake 2023-03-11 2023-03-11 [facility]er [facility]00 of alcohol [facility] Center (finding) History of Social 2023-03-11 2023-03-[address] [facility] function 00:00:00 00:00:00 Medical [place] Tobacco use and 2023-02-24 2023-02-24 Smokeless tobacco [facility] exposure 00:00:00 00:00:00 non-user Medical Center Alcohol Comment 2023-02-24 2023-02-[address] [facility]alia kes 00:00:00 00:00:00 [facility] Sex Assigned At 1955 [address] [facility] Ros[facility] kes 00:00:00 00:00:00 Medical Center Smoking Status Start Date Stop Date Source Smokes tobacco daily 2023-02-24 00:00:00 [facility] Medications Ordered Filled Start Stop Current Ordering Indication Dosage Frequency Signature Comments Components Source Medication Medication Date Date Medication? Clinician (SIG) Name Name Naldo Bowensiq 2022-09 No 1{table QD Myrbetriq 25 MG 25 MG 0-05 t} 25 MG 00:00: 00 Myrbetriq Myrbetriq 2022-09 No 1{table QD Myrbetriq 25 MG 25 MG 0-05 t} 25 MG 00:00: 00 Myrbetriq Myrbetriq 2022-09 No 1{table QD Myrbetriq 25 MG 25 MG 0-05 t} 25 MG 00:00: 00 sulfamethox 2022-0 3- No 160mg{t Q.5D Take [address] azole-trime - 07-02 rimetho tablet Rosalia kes thoprim 00:00: 23:59 prim} (160 mg of Me dical (BACTRIM 00 :00 trimethopr Cente r DS) 800-160 im total) mg per by mouth 2 tablet (two) times daily for 3 days Start day before appointmen t for shin removal. fenofibrate 2022-0 Yes 145mg QD Take [address] [facility] (TRICOR) 6-22 tablet Lukes 145 MG 13:09: (145 mg Medical tablet 04 total) by Center mouth daily. pregabalin 2023-0 Yes 300mg Q.5D Take [address] (LYRICA) 6-22 capsule Lukes 300 MG 13:09: (300 mg Medical capsule 04 total) by Center mouth 2 (two) times daily. clopidogreL 3-0 Yes 75mg QD Take [address] (PLAVIX) 75 6-22 tablet (75 Rosalia kes mg tablet 13:09: mg total) Med ical 04 by mouth Center daily. doxazosin 2022-0 Yes 1mg Q.5D Take [address] (CARDURA) 1 6-22 tablet (1 Ekaterina es MG tablet 13:09: mg total) Med ical 04 by mouth 2 Center (two) times daily. carvediloL 2023-0 Yes 6.25mg Take [address] (COREG) 6-22 tablet Lukes 6.25 MG 13:09: (6.25 mg Medica l tablet 04 total) by Center mouth 2 (two) times daily with breakfast and dinner. HYDROcodone 2022-0 Yes 1{tbl} Take [address] -acetaminop 6-22 tablet by Ekaterina es hen (NORCO 13:09: mouth Medica l 10-325) 04 every 6 Center 10-325 mg (six) per tablet hours as needed for Pain. docosahexae Yes Take by [facility] noic - mouth. Lukes acid/epa 13:09: Medical (FISH OIL 04 Center ORAL) pantoprazol 2022- No 40mg QD Take [address] e 03-17- tablet (40 Lukes (PROTONIX) 13:09: 00:00 mg total) M edical 40 MG 04 :00 by mouth Center tablet daily. tamsulosin 2022- No .4mg QD Take [address] (FLOMAX) 03-17- capsule Lukes 0.4 mg Cap 13:09: 00:00 (0.4 mg Med ical 24 hr 04 :00 total) by Center capsule mouth daily. rosuvastati 2022- No 40mg QD Take [address] n (CRESTOR) 03-17- tablet (40 L ukes 40 MG 13:09: 00:00 mg total) Medica l tablet 04 :00 by mouth Center daily. aspirin 81 2022- No 81mg QD Take [address] MG chewable 03-17 09-20 tablet (81 L ukes tablet 00:00: 23:59 mg total) Medic al 00 :00 by mouth Center daily for 90 days. famotidine 2022- No 20mg QD Take [address] (PEPCID) 20 03-17- tablet (20 L ukes MG tablet 00:00: 23:59 mg total) Me dical 00 :00 by mouth Center daily for 60 days. cyanocobala 2022- No 1000ug QD Take [address] min 03-17-22 tablet Lukes (VITAMIN 00:00: 23:59 (1,000 mcg Me dical B-12) 1000 00 :00 total) by Cent er MCG tablet mouth daily for 30 days. oxybutynin 2022- No 5mg Take [address] [facility] (DITROPAN-X 03-17 07-06 tablet (5 Rosalia kes L) 5 MG 24 00:00: 23:59 mg total) M edical hr tablet 00 :00 by mouth Center daily as needed (bladder spasms) for up to 14 days Do not take 24 hours prior to appointmen t for shin removal. neomycin-ba 2022-0 Yes 1{packe Q.5D Apply [address] citracnZn-p 6- t} packet Lukes olymyxnB 00:00: topically Medi ellen (NEOSPORIN) 00 2 (two) Cente r 3.5-400-5,0 times 00 daily mg-unit-uni Apply t OiPk twice packet daily to catheter tip. rosuvastati 2022-0 2022- No 20mg QD Take [address] n (CRESTOR) 03-16 08-20 tablet (20 L ukes 20 MG 00:00: 23:59 mg total) Medica l tablet 00 :00 by mouth Center nightly for 60 days. docusate 2022-0 2022- No 100mg Q.5D Take 1 [facility] t sodium 03-16 07- capsule Lukes (COLACE) 00:00: 23:59 (100 mg Medic al 100 MG 00 :00 total) by Center capsule mouth 2 (two) times daily for 30 days. famotidine 0 2022- No 20mg QD Take [address] (PEPCID) 20 03-16 06-21 tablet (20 L ukes MG tablet 00:00: 00:00 mg total) Me dical 00 :00 by mouth Center daily for 60 days. Gentamicin Gentamicin 2022-0 No 240mg Common 80mg 80mg 10-06 Spirit 00:00: - [facility] Gentamicin Gentamicin 2022-0 No 240mg Common 80mg 80mg 10-06 Spirit 00:00: - [facility]I 00 [facility] Gentamicin Gentamicin 2022-0 No 240mg Common 80mg 80mg 10-06 Spirit 00:00: - [facility]I 00 [facility] Gentamicin Gentamicin 2022-0 No 240mg Common 80mg 80mg 10-06 Spirit 00:00: - [facility]I 00 [facility] Gentamicin Gentamicin 3-0 No 240mg Common 80mg 80mg 10-06 Spirit 00:00: - [facility] 00 [facility] Tadalafil 5 Tadalafil 5 No 1{table QD Tadalafil MG MG t_as_ne 5 MG eded} Carvedilol Carvedilol No 1{table BID Carvedilol 6.25 MG 6.25 MG t_with_ 6.25 MG food} Tricor 145 Tricor 145 No 1{table QD Tricor 145 MG MG t} MG Protonix 40 Protonix 40 No 1{table QD Protonix MG MG t} 40 MG Lyrica 200 Lyrica 200 No 1{capsu BID Lyrica 200 MG MG le} MG Crestor 40 Crestor 40 No 1{table QD Crestor 40 MG MG t} MG HYDROcodone HYDROcodone No 1{table QID HYDROcodon -Acetaminop -Acetaminop t_as_ne e-Acetamin hen 10-325 hen 10-325 eded} ophen MG MG 10-325 MG amLODIPine amLODIPine No 1{table QD amLODIPine Besylate 10 Besylate 10 t} Besylate MG MG 10 MG traZODone traZODone No 1{table QD traZODone HCl 50 MG HCl 50 MG t_at_be HCl 50 MG dtime_a s_neede d} Plavix 75 Plavix 75 No 1{table QD Plavix 75 MG MG t} MG Fish Oil Fish Oil No Fish Oil Flomax 0.4 Flomax 0.4 No 1{capsu QD Flomax 0.4 MG MG le} MG Tadalafil 5 Tadalafil 5 No 1{table QD Tadalafil MG MG t_as_ne 5 MG eded} Carvedilol Carvedilol No 1{table BID Carvedilol 6.25 MG 6.25 MG t_with_ 6.25 MG food} Tricor 145 Tricor 145 No 1{table QD Tricor 145 MG MG t} MG Protonix 40 Protonix 40 No 1{table QD Protonix MG MG t} 40 MG Lyrica 200 Lyrica 200 No 1{capsu BID Lyrica 200 MG MG le} MG Crestor 40 Crestor 40 No 1{table QD Crestor 40 MG MG t} MG HYDROcodone HYDROcodone No 1{table QID HYDROcodon -Acetaminop -Acetaminop t_as_ne e-Acetamin hen 10-325 hen 10-325 eded} ophen MG MG 10-325 MG HYDROcodone HYDROcodone No 1{table QID HYDROcodon -Acetaminop -Acetaminop t_as_ne e-Acetamin hen 10-325 hen 10-325 eded} ophen MG MG 10-325 MG amLODIPine amLODIPine No 1{table QD amLODIPine Besylate 10 Besylate 10 t} Besylate MG MG 10 MG traZODone traZODone No 1{table QD traZODone HCl 50 MG HCl 50 MG t_at_be HCl 50 MG dtime_a s_neede d} Plavix 75 Plavix 75 No 1{table QD Plavix 75 MG MG t} MG Plavix 75 Plavix 75 No 1{table [...] Fish Oil Fish Oil No Fish Oil Carvedilol Carvedilol No 1{table BID Carvedilol 6.25 MG 6.25 MG t_with_ 6.25 MG food} HYDROcodone HYDROcodone No 1{table QID HYDROcodon -Acetaminop -Acetaminop t_as_ne e-Acetamin hen 10-325 hen 10-325 eded} ophen MG MG 10-325 MG Protonix 40 Protonix 40 No 1{table QD Protonix MG MG t} 40 MG Plavix 75 Plavix 75 No 1{table QD Plavix 75 MG MG t} MG Fish Oil Fish Oil No Fish Oil Flomax 0.4 Flomax 0.4 No 1{capsu QD Flomax 0.4 MG MG le} MG Tadalafil 5 Tadalafil 5 No 1{table QD Tadalafil MG MG t_as_ne 5 MG eded} Carvedilol Carvedilol No 1{table BID Carvedilol 6.25 MG 6.25 MG t_with_ 6.25 MG food} Tricor 145 Tricor 145 No 1{table QD Tricor 145 MG MG t} MG Protonix 40 Protonix 40 No 1{table QD Protonix MG MG t} 40 MG Lyrica 200 Lyrica 200 No 1{capsu BID Lyrica 200 MG MG le} MG Crestor 40 Crestor 40 No 1{table QD Crestor 40 MG MG t} MG HYDROcodone HYDROcodone No 1{table QID HYDROcodon -Acetaminop -Acetaminop t_as_ne e-Acetamin hen 10-325 hen 10-325 eded} ophen MG MG 10-325 MG amLODIPine amLODIPine No 1{table QD amLODIPine Besylate 10 Besylate 10 t} Besylate MG MG 10 MG traZODone traZODone No 1{table QD traZODone HCl 50 MG HCl 50 MG t_at_be HCl 50 MG dtime_a s_neede d} Plavix 75 Plavix 75 No 1{table QD Plavix 75 MG MG t} MG Fish Oil Fish Oil No Fish Oil Flomax 0.4 Flomax 0.4 No 1{capsu QD Flomax 0.4 MG MG le} MG Vital Signs Vital Name Observation Time Observation [...] 180.3 cm WEIGHT 2023-02-24 12:38:00 103.42 kg height 2023-02-18 11:15:00 71 [in_i] [facility] weight 2023-02-18 11:15:00 226.8 [lb_av] [facility] temperature 2023-02-18 11:15:00 98.4 [degF] [facility] bmi 2023-02-18 11:15:00 31.63 kg/m2 [facility] oximetry 2023-02-18 11:15:00 99 % [facility] respiratory rate 2023-02-18 11:15:00 18 /min Comm on [facility] blood pressure 2023-02-18 11:15:00 128 mm[Hg] [facility] blood pressure 2023-02-18 11:15:00 65 mm[Hg] Common [facility] - diastolic [facility] height 2022-11-10 13:15:00 71 [in_i] Common [facility] weight 2022-11-10 13:15:00 226.8 [lb_av] Common [facility] temperature 2022-11-10 13:15:00 98.1 [degF] Common S [facility] bmi 2022-11-10 13:15:00 31.63 kg/m2 Common [facility] oximetry 2022-11-10 13:15:00 97 % [facility] respiratory rate 2022-11-10 13:15:00 18 /min Comm on [facility] blood pressure 2022-11-10 13:15:00 138 mm[Hg] Common [facility] - systolic [facility] blood pressure 2022-11-10 13:15:00 70 mm[Hg] Common [facility] - diastolic [facility] blood pressure 2022-10-27 13:45:00 75 mm[Hg] Common [facility] - diastolic [facility] height 2022-10-27 13:45:00 71 [in_i] [facility] weight 2022-10-27 13:45:00 219 [lb_av] Common [facility] temperature 2022-10-27 13:45:00 98.6 [degF] Common [facility] bmi 2022-10-27 13:45:00 30.54 kg/m2 Common [facility] oximetry 2022-10-27 13:45:00 99 % Common [facility] respiratory rate 2022-10-27 13:45:00 18 /min Comm on [facility] blood pressure 2022-10-27 13:45:00 136 mm[Hg] Common [facility] - systolic [facility] height 2022-10-06 13:15:00 71 [in_i] Common S [facility] weight 2022-10-06 13:15:00 223 [lb_av] Common [facility] temperature 2022-10-06 13:15:00 98.6 [degF] [facility] bmi 2022-10-06 13:15:00 31.1 kg/m2 Common [facility] oximetry 2022-10-06 13:15:00 99 % Common S [facility] respiratory rate 2022-10-06 13:15:00 18 /min Comm on [facility] blood pressure 2022-10-06 13:15:00 143 mm[Hg] Common [facility] - systolic [facility] blood pressure 2022-10-06 13:15:00 77 mm[Hg] Common [facility] - diastolic [facility] height 2022-06-09 08:00:00 71 [in_i] Common [facility] weight 2022-06-09 08:00:00 219.8 [lb_av] [facility] temperature 2022-06-09 08:00:00 97.6 [degF] [facility] bmi 2022-06-09 08:00:00 30.65 kg/m2 [facility] oximetry 2022-06-09 08:00:00 98 % [facility] respiratory rate 2022-06-09 08:00:00 18 /min Comm on [facility] blood pressure 2022-06-09 08:00:00 134 mm[Hg] Common [facility] - systolic [facility] blood pressure 2022-06-09 08:00:00 69 mm[Hg] Common [facility] diastolic [facility] Heart rate 2023-03-16 12:02:00 73 /min [facility] Respiratory rate 2023-03-16 12:02:00 17 /min [facility] Oxygen saturation in 2023-03-16 12:02:00 97 /min [facility] Arterial blood by Medical Ce nter Pulse oximetry Body temperature 2023-03-16 11:13:08 36.44 Little [facility] Systolic blood 2023-03-16 11:12:45 158 mm[Hg] [facility] Diastolic blood 2023-03-16 11:12:45 65 mm[Hg] [facility] Body height 2023-03-10 10:46:00 180.3 cm [facility] Body weight 2023-03-10 10:46:00 102.5 kg [facility] BMI 2023-03-10 10:46:00 31.53 kg/m2 [facility] Procedures Procedure Date / Time Performed Performing Clinician [facility] e ECG 12-LEAD 2023-03-16 07:59:45 Bre Ojeda [facility] CBC (HEMOGRAM ONLY) 2023-03-16 04:30:00 [facility] ([place], [place]) BASIC METABOLIC PANEL 2023-03-16 04:30:00 [facility] POCT-GLUCOSE METER 2023-03-15 21:00:00 Chris Monroe [facility] CBC (HEMOGRAM ONLY) 2023-03-15 03:44:00 [facility] ([place], [place]) BASIC METABOLIC PANEL 2023-03-15 03:44:00 [facility] CALCIUM, IONIZED 2023-03-15 03:44:00 Poly Swift [facility] 2D ECHO W/ DOPPLER 2023-03-14 14:58:41 [facility] (CW/PW/COLOR) [facility] CBC (HEMOGRAM ONLY) 2023-03-14 03:57:00 [facility] ([place], [place]) BASIC METABOLIC PANEL 2023-03-14 03:57:00 [facility] NM LUNG SCAN (V/Q) 2023-03-13 12:31:07 [facility] ([facility] ONLY[facility] 2023-03-13 04:44:00 Berger, [facility] BASIC METABOLIC PANEL 2023-03-13 04:44:00 Berger [facility] LIPID PANEL 2023-03-13 04:44:00 [facility] US RENAL COMPLETE 2023-03-12 16:30:00 Raimundo Canseco [facility] XR CHEST 1 VIEW PORTABLE 2023-03-12 11:58:00 [facility] MR BRAIN WITHOUT IV 2023-03-12 10:12:00 [facility] CBC (HEMOGRAM ONLY) 2023-03-12 03:26:00 Ab [facility] BASIC METABOLIC PANEL 2023-03-12 03:26:00 Berger, [facility] LIPID PANEL 2023-03-12 03:26:00 [facility] HEMOGLOBIN A1C 2023-03-12 03:26:00 [facility] TSH/FREE T4 IF INDICATED 2023-03-12 03:26:00 [facility] VITAMIN B12 2023-03-12 03:26:00 [facility] RPR 2023-03-12 03:26:00 [facility] HIGH SENSITIVITY TROPONIN 2023-03-12 03:26:00 Raimundo Canseco [facility] HIGH SENSITIVITY TROPONIN 2023-03-11 20:58:00 Ab [facility] HIGH SENSITIVITY TROPONIN 2023-03-11 18:35:00 Poly Swift [facility] D-DIMER 2023-03-11 14:46:[address] [facility] HIGH SENSITIVITY TROPONIN 2023-03-11 14:46:00 [facility] CTA BRAIN 2023-03-11 14:20:00 Ab [facility] CTA CAROTID 2023-03-11 14:20:00 Ab [facility] CT BRAIN CEREBRAL 2023-03-11 14:20:00 [facility] WITHOUT CODE 2023-03-11 14:20:00 Ab [facility] STROKE [facility] POCT-GLUCOSE METER 2023-03-11 13:37:00 Chris Monroe [facility] HIGH SENSITIVITY TROPONIN 2023-03-11 10:53:00 Poly Swift [facility] ECG 12-LEAD 2023-03-11 09:01:57 Chris Monroe [facility] CBC (HEMOGRAM ONLY) 2023-03-11 04:47:00 Berger, [facility] BASIC METABOLIC PANEL 2023-03-11 04:47:00 [facility] CALCIUM, IONIZED 2023-03-11 04:47:00 [facility], MANUAL 2023-03-11 04:47:00 Ab [facility] ECG 12-LEAD 2023-03-10 21:40:41 [facility] ECG 12-LEAD 2023-03-10 21:40:41 Unknown, Hl7 Doctor [facility] CBC (HEMOGRAM ONLY) 2023-03-10 20:29:00 Berger [facility] BASIC METABOLIC PANEL 2023-03-10 20:29:00 [facility] TISSUE EXAM 2023-03-10 19:16:00 Chris Monroe [facility] ROBOTIC ASSISTED 2023-03-10 12:38:00 Chris Monroe [facility] LAPAROSCOPIC SIMPLE Medical Cent er PROSTATECTOMY PROCEDURE W/ DAVINCI XI 2023-03-10 12:38:00 Chris Monroe [facility] TYPE AND SCREEN, 2023-03-10 10:45:00 Poly Swift [facility] AUTOMATED [facility] EKG-SCANNED 2023-03-10 00:00:00 Provider, Default [facility] Plan of Care Planned Activity Planned Date Details Comments Source Future Scheduled 2023-05-27 Influenza Vaccine (#1) [facility] 00:00:00 [code = Influenza Medical Ce nter Vaccine (#1)] Future Scheduled 2022-09-[address] [facility] Test 00:00:00 (12+) [code = Medical Center DEPRESSION SCREENING (12+)] Future Scheduled 2022-09-26 FALLS RISK SCREENING [facility] Test 00:00:00 [code = FALLS RISK Medical C enter SCREENING] Future Scheduled 2022-04-[address] [facility] Test 00:00:00 WELLNESS (YEAR 2 or Medical Center FIRST YEAR if no IPPE) [code = MEDICARE ANNUAL WELLNESS (YEAR 2 or FIRST YEAR if no IPPE)] Future Scheduled [address] [facility] Test 00:00:00 aneurysm screening Medical C enter (procedure) [code = 322085595] Future Scheduled 2006 SHINGLES VACCINES ([address] [facility] Test 00:00:00 2) [code = SHINGLES Medical Center VACCINES (1 of 2)] Future Scheduled 1975 DTAP/TDAP/TD VACCINES [facility] Test 00:00:00 (1 - Tdap) [code = Medical C enter DTAP/TDAP/TD VACCINES (1 - Tdap)] Future Scheduled 1974 HEPATITIS C SCREENING [facility] Test 00:00:00 [code = HEPATITIS C Medical Center SCREENING] Future Scheduled [address] [facility] Test 00:00:00 Counseling and Medical Cente r Screening (12+) [code = Tobacco Cessation Counseling and Screening (12+)] Future Scheduled 1962 PNEUMOCOCCAL 65+ YRS ([address] [facility] Test 00:00:00 - PCV) [code = Medical Cente r PNEUMOCOCCAL 65+ YRS (1 - PCV)] Future Scheduled 1955 COVID-19 VACCINE (#1) [facility] Test 00:00:00 [code = COVID-[address] VACCINE (#1)] Future Scheduled 1956 CT Colonography (combo) [facility] Test 00:00:00 [code = CT Colonography [facility] (combo)] Future Scheduled 1956 Screening for malignant [facility] Test 00:00:00 neoplasm of colon Medical Ce nter (procedure) [code = 242454214] Future Scheduled 1956 Screening for malignant [facility] Test 00:00:00 neoplasm of colon Medical Ce nter (procedure) [code = 802562872] Future Scheduled 1956 Screening for malignant [facility] Test 00:00:00 neoplasm of colon Medical Ce nter (procedure) [code = 314238905] Future Scheduled 1956 Screening for malignant [facility] Test 00:00:00 neoplasm of colon Medical Ce nter (procedure) [code = 676385029] Future Scheduled 1955 Sigmoidoscopy [code = [facility] Test 00:00:00 Sigmoidoscopy] Medical Cente r Encounters Start End Encounter Admission Attending Care Care Encounter Source Date/Time Date/Time Type Type Clinicians Facility Department ID 2023-03-22 Outpatient [facility] [id number] Common 14:51:01 [id number] [facility] 2023-03-14 Inpatient JORDY MONROE [facility] [id number] [facility] 11:05:33 [place] 2023-03-12 Inpatient JORDY MONROE [facility] [id number] SLE 09:53:19 [place] 2023-03-12 Inpatient JORDY MONROE [facility] [id number] SLE 09:14:25 [place] 2023-03-12 Inpatient JORDY MONROE [facility] [id number] SLE 00:00:00 [place] 2022-06-09 Outpatient [facility] [id number] Common 08:02:01 [id number] [facility] 2023-03-10 2023-03-16 [facility] Moise [facility] [id number] 07:35:00 13:09:00 Encounter [facility] 2023-03-10 2023-03-16 Inpatient JORDY MONROE [facility] Surgery [id number] SLE 07:35:00 13:09:00 [place] 2023-03-13 2023-03-13 Inpatient [facility] [id number] [facility] 11:48:10 23:59:00 [place] 2023-03-13 2023-03-13 Hospital Moise [facility] [id number] 11:30:00 23:59:00 Encounter [facility] 2023-03-12 2023-03-12 Inpatient LINSEY ORTEGA [facility] [id number] [facility] 14:43:38 00:00:00 [place] 2023-03-11 2023-03-11 Outpatient LINSEY ORTEGA [facility] [id number] SLE 13:54:31 13:54:31 [place] 2023-03-10 2023-03-10 Anesthesia BillRudy marshallny [facility] [id number] 12:38:00 20:39:00 [facility] 2023-03-10 Surgery Moise [facility] [id number] 12:05:00 16:35:00 [facility] 2023-03-10 2023-03-10 Orders [facility] [id number] 00:00:00 00:00:00 Only [facility] 2023-03-10 2023-03-10 Travel [facility] [id number] [facility] 00:[facility]00 00:00:00 [facility] 2023-02-24 2023-02-24 [place] [facility] [id number] 09:00:00 09:00:00 Encounter [facility] 2023-02-24 2023-02-24 Outpatient JORDY SLE SLE [id number] [facility] 00:00:00 00:00:00 2023-02-24 2023-02-24 Travel [facility] [id number] [facility] 00[facility] 00:[facility]:00 [facility] 2023-02-18 2023-02-18 OFFICE [facility] [id number] Co mmon 00:00:00 00:00:00 VISIT Myles VAN PT - [facility] LEVEL 3 [facility] 2022-11-23 2022-11-23 (TEL) STLMLC STLMLC [id number] Co mmon 00:00:00 00:00:00 Spirit - [facility] 2022-11-10 2022-11-10 OFFICE STLMLC STLMLC [id number] Co mmon 00:00:00 00:00:00 VISIT Spirit ESTAB PT - [facility] LEVEL 4 [facility] 2022-10-27 2022-10-27 OFFICE STLMLC STLMLC [id number] Co mmon 00:00:00 00:00:00 VISIT Spirit ESTAB PT - [facility] LEVEL 4 [facility] 2022-10-06 2022-10-06 OFFICE STLMLC STLMLC [id number] Co mmon 00:00:00 00:00:00 VISIT EST Spir it PT LEVEL 3 - [facility] 2022-08-04 2022-08-04 (TEL) STLMLC STLMLC [id number] Co mmon 00:00:00 00:00:00 Spirit - [facility] 2022-06-09 2022-06-09 OFFICE STLMLC STLMLC [id number] Co mmon 00:00:00 00:00:00 VISIT [facility] ESTAB PT - [facility] LEVEL 4 [facility] Results Test Description Test Time Test Comments Results Result Comments Source Tissue Exam 2023-03-31 13:32:48 Test Item Value Reference Range Interpretation Comme nts Case Report (test code = 104) Surgical Pathology Report Case: [id number] Authorizing Provider: Chris Monroe MD Collected: 03/10/2023 07:16 PM Ordering Location: [facility] PERI[facility]AT[facility] Received: 03/11/2023 09:54 AM SERVICES Pathologist: Mrii Kim MD Specimen: Prostate, BPH DIAGNOSIS (test code = 3220) l1okbKHkJKOtn0xgDLOuoCQiErDyTxHyZsZkBi uIBsJKsxdfLhMUvoeKfvKJCwCZyjNI9tzRoqgWd9 dZkyKYVqnwS2wYUeYOfls1fuGCI6t9ygoaglPSNr QFfsSp4mnEVyrDyhXhDkSNIxWTz0vL97RVTghE0o nHTbDTh6FNShqXAuflIeYsCrXFBgiCUshXI4DWLj VY0vcldrEDbgWVxwUTWezpB0SPMbaHWrJ5AnXWUg IT7blzqoNCG5BDllUNXyAEV6CtZgTXIzt6Knpgn3 ZpVhnRKiAEypnHSelmoyssNiDIFJC0EVMXWNEUKW IL6ENURjJWSTD6CPVBBGSD5TSCqqcUBiEEDcHvSo OIiZVW4EKM6PHYqdTNHtuRPtHQ7lAsBUKShGTRnA WU4OAIwVPzPTTaMwT8VMT68LHYBKBGFGAmSYPIQQ CWtcOAN2s2bciAMcIASugEJuYUIjDDjscbYbRSNz AtizwpqtIXEhXIN2duUtLPWrJPeeRFXmVJjrMq6h ePUxsFcbVrUuDOQrk1pdrgUUxfdssAs5r2ocUQYe FgA2oNLsDCadB7ymcaOijTOkKWYkKOh9qN87ZAJs vT9auSNtLMhuiaZgFrG1INvhLAHzVzQ3BRHcwNRi PCEmR0eaNBQlIActISNxCVjuhSTxUKK5xNlmq6V1 bSMbgUNpdGcqBiWhTfPyRwZWl1OeEIr0uGyjD0Vd WGFdZbH0pMPpFGZbEYshMETpNVDhyyP5gF34PLvh tgJ5oSZvp1Ilg34iv930oR9mlUXfTJP2DJVhPYHt zCPsYPXfQYU5KSYkxLSeC8fuIQFzQE6kxaahBXnt PKotZUHprNI7OSXbbOKaB1QyWRLrUKjwOYTofxe7 AsNrZu7vvODdvFlmUHjeg5bjr2lqiBRiLuk0KDJw UeSwUnmdDYwpt2Ffm5omIKRpdm6vEYT8bARezMoc q8L6kWVpBVVloBRjLSPmYW8zzMAoDJLkeL7roqsy NWXoOpTcwzllKJXtlWkjdpPeHy7ipDgqSNA3AHvc A6pczN2tJhU0TJsmS9ygmR9uNEj0CIgbBKOpfLX9 dxG6DWYusQDzL8XicE8dSORqHM6tzug2y9jzRRD6 AKczQJEcGqZ8lxS8SVSkjFKlLZKolXfyPRguq170 JDB9ZyZwFRUsi1OrZ2RwtUzjF66nwSemM78oEHXe nWndxK1pyOemyT6oTnDoUsCxCQtaxVtjMO4uESGd B3eyzKIqWOKySSQwP3hpRkQukN2joNlhWZbtpbYd XSYiKwo3BNSwsFEzQQRbFvi8YUBwLESrW34jizxd DUS9xN7fn2hgt3RgMVwcLET2BLEfp36cGYxhppF9 ZGxdIo90EMfkRTH3AYukAWB7vQ== CPT Code(s) (test code = 3357) w2noxYQbUIKdeXGvUGAuV5wcoqEvSXUcdEAh Z3Bh nkleGEhaEJ5yUB2czJstnEYemPDxWZRhCeFnw4ef n490hNUmk8znGFHBqrkrsGu0gWxpT81im1D3Jqcx F57igOZrALI5LVOuHAPllBRnOBEuWKF2MMXmhFZt W0znTJEbTW1blclhRVkzIBgyLYPmpAT3HNYqtTWd A3TtWDVwNPnfFRJvlws0LpRrZf7viIUfpTcwGRbh ASOcTORnHLvkCHFrFvEpQGhoWAozWKRbuuH3LSF6 ZwccKOYmBSokEQMVZ4reIZO7 CLINICAL HISTORY (test code = 3356) s2qsmXUqSZTnaRArRPBaCVejfzJoEFS kfKPmO7Qk oarbIMcaDO6tHF6wuKkofTKbuVNaCVJpAcTmq5ho j919hFUeq2usRDQLdwmlrBc8hNowD19tf9V2Ilrl G7fsIWTeBEsqUEYmWImljKMeOZp8RMYspTRxplYs KuMuYYWtlNCnkNX4SDKfXR1gmfkkYOwgOEkbQLRu oiZ9HCEgiWFcY1CuNWPlPU2iwyogNMG9IWsjGUWf KKE8AgNjKUWrf4Tuisr3JxHcyTAvRWpcgKFmsCtn sC4tObOjREdnPgUiCoRogBspXLVcn0E3NSEkZqMk zHHisxEqTJHpVXG2vIWbUYGopV5ilsbtt0EzvAM3 I2Jpa04lzQIznK== GROSS DESCRIPTION (test code = d2bxuIQbSMOhwOMXPLWhRRNcYG9ddKwehCf6 [facility] [id number]) DQWzftW8kHCoRSvfg4cgHTM9i2dyneNBBkeyRKVp RM6lVCzdNIKfUG0yEvRtWTGdFqVmSXDmoYVgcgIn BiYgJAXypLAafXE7RQSqSE6btjuaXXfuIMoaYIHz nyT5MOSpaFIzS3IjMRYwFC2zbjozTOP7MFTLYrtf Mp3cmMZnkTqlCsSlNtSsSZSmCQIcSBRvtHnmPDHe ZOw6iT2GFsqwI32zi5N0Mjc3TEAyVRUbZ3PoFR8q OSHvcGVfZ49HGfstJAM0WIXTOfhuBorvqTmtd6Cp dCBcXHNnIFxcaWQgNTEwMDAgXFxkYiBPVlIgIiAx [file] fQ== MICROSCOPIC DESCRIPTION (test code = s9ksgDLaVHYsoAIjLTAdQ9pdktJzRJ [place] [address]) ylgyAJihYA0hJE8ghJjwjUVzqEQfSTAcBmRuj8bh s636zTNlq3qvRONVyzpavPm4gScyD81vy7V4Zdza Y37muUOfIJP6SFUqWRDvrHLsBUBjUQQ6QIWjtWMg J4wdUYNqAI2frqneCUnqVMauILXphMC7VZWobMAj H6GnRQNpKCwkQMTusgh5CpZpJm0gjYDmrSzeXWeu PHOtELMtORziHSPiQhNiP5UdxWdeiwGnb9FroRcc HTWkj8G9BIYsAUvxsaHkUILmp1N7lBCzH92jxJ7w MRCci3CouE61LUAgKLVybsodEtMnN0qxtNYiUD5j SUMqs379xRWmmCRleWQtGCNfd93zcwZlqyDjF1Ta YTBpeO5sVExoawJxpISiXv1alGFbOBR1aJAmPHJn hOYxpJFnABCdSYSrnhAjv2smUIQbpnPdTPczGnNp ZSBzdGFpbmluZyBpcyBpZGVudGlmaWVkLiBBTUNB DcLpbwXcV0b8ZHUcq3WsIJBwHGUue4HtJQMwf27b GQGog7F3pjQtXkJcHOC5OYOjbfOaQRDqmTzkvMx1 IRH1zEIeQ7OgBClyBI0mkhehIT8uJD7kBPihW9Bv YXNlZCBBTUNBUiBzdGFpbmluZyBpcyBpZGVudGlm bLLiGpQMsPOeFLLkRRN9JUGzocNkJBsgXP7fnfGj fQYdVFytdjIwXuJlCLrfE4DbbBYlaYwdoZkfC7c9 AADqk5u3xJBFBpnnQn4zWw1ibEsvqN6gavCkPDGr kp9soBY8yZBgtC98okJeyFu0nIDtuMNtWI7ex6Kj MIXiFMPmofPpLVnxP27zdbC3RBfgIKnyLP75nOEx ZWQuXHBhcn0= SPECIAL STUDIES (test code = 3376) q0amhQKdYWBck1hwXKAulSSdIkFjEbMs ZnRuYmpc gXBuSAtxyeYpDGhby1CoT9EvNcTeHWnsfcEeGPVm QzrilqhrCAVcNQO8pmHsZXDzNTggFIDbWPacPv7w zOYpxZzvUlNmXCJxt2exwuVAzcyssMu5n8avLFOa RaP6dFSpWDvkU8evqzBmzIDsF1DrnPDngUj7p6vw CaOlFxA3nWWeWMcsN7huvxQorTLdIPLoJKt3iQ10 DOEhbV8ogWXiJEunbgQvRfW6SZejLWKzTmG2RNFu bMSmEDPjJ4kvTCUzKSngRMSvBMhtkBPdRBB6yEiw o0D9lHJdpSCtzYdxAbVnCvMjIzNYr8GhUSv0bFzz L9WbQCLwMpV0kWZoKCGnWAfjLYGwQSIzikQ1zKxl mwHqp96xdDVmQRFsPATgUvAkpPweSSOeFSSXo0Fc uItwDHD0oSm1yOiiWhjkUYA9Hwk1UA8kej29pfm9 bEspULSzummhPzC9FBxiIFLwphleXAa3IQvwADDm tFY1HPUcbBHkX1FnDVBlGE1rcrx0LKL5MJxnESFf GwC3NXPdmASpZTWsyJutNEisn625YFM6LcSaFO5p H6Woo1F4lH1mxVUgIVYhoTGxJoMkISIupi4jcPVb GYgdx4UoXLC2fgQ1eXTkcLZyCWYdDJ35Sdrqb8Kg Xnjpi7YwV01ujEQ0TTgzm7wiVK8rPoK8rvIwLWgg t6xkrF7cLmI7GNvsDT0nGX7gCMUmmA2hrsfpPZBs SwFzeakxYRWlzHxbguXoTv1fdUghFBM3NCmyB0vt iJ6pFfD5PApiA3dwzQ1yMIc1XUonuSA6SOTlvN8w GC4pgafdu2tzZAcyUZksYJLbqaY6efR1ALJqlGVu S4WldI4uYGRgTQ5ktucrk6wtUGD6UWrjPQJkBMY0 SxPlPPHpj7Ihmck3JhDos2EliBUrIBpmH38uc592 QELipiEsC3kxtECneyzjiLQgrghzMYznzhT1HZLp XHBsYWluXGYxXGZzMjJcbGFuZzEwMzNcaGljaFxm TDejNdPbCKSfCHszG6gfVtJwD7VjBAWwWzOzBJim WJxcjNVtqERenFP9bM6yAH7eAHQqkCLkK9KoQEUr kiMpwNOrNRQ5oJNqzQDtVT6vVCtvaSGnc9cjg2Lf W4bxhElblHG9HS2xELIwOCCcBQgfq2LvfJ1wNiji dCVxrvlhQQvyiyQmFMkhtkcyPBHuBMyjZ9ifFrMp OXBjxUmoXCfxf4QdPTTvOALdRtkbytSsXId4vdLi IFRbdcimRXLwpYvhlD2oOsZkKcYhZpwdOU2lVNHb I8qvlHOzZHKuHGHaQ6pmVgDhaU2bsVoeQBwdUoHr AiYpLnSMi484ek1rVCTubZKfqaIAoWHwoA6cRHko KJjfFBdnrKOaDLzla9ahAQBij1w3nIBuSVPwbvVh d6guQIbhuzDxLRMerUVwjYLdTVIzd13aHPbmzKjt bNgbUNIix0EspYwqu3WqCiJzBXwxh2VwE05xmXBn wJNwmPwmJYLngdUmMLMzh14xb2ymHQUvZiN4yYUu fVG1yZDjxXUzr3TpyYexFROpj8laVGWred3axjci vFUql0LwaZ6peqloENtmoAUcvxZxIXUko2h9jTMx BGHkFTSiHWapyAl8DYGrz371nw0tagI0rXBeCEE7 YWlsYWJsZSBhcmUgZXZhbHVhdGVkXHBsYWluXGYx XGZzMjJcbGFuZzEwMzNcaGljaFxmMVxkYmNoXGYx YGewS4fjGwZhZ3GwCTWlZjGqhJBgT6wqrDUsXUMz YWluXGYxXGZzMjJcbGFuZzEwMzNcaGljaFxmMVxk LlTnTIYaEDpeF8ayEeUzR1EbWXDiHkAhNZrvnXRe sdgnIGqxzlYhOBxipvbdIGBeZMowF9zuLsAuPHGg qMveKQncj4MgTSRfFPJzBmlqwxSvGEq7fgVqROJs enonyPQqmibfQXdfbsPuNSpwwuqvUMMtVNorZ5ay [file] SizrWKH5wY== Gross assessment was performed at (test [facility] enter, code = 2777) Department of Pathology, [address] [place] [address], Technical component was performed at [facility] er, (test code = 2778) Department of Pathology, [address] [place] [address], Professional component was performed at [facility] enter, (test code = 2779) Department of Pathology, [address] [place] [address], [facility] [id number] 13:32:48Surgical Pathology Report Case: [id number] Authorizing Provider: Chris Monroe MD Collected: 03/10/2023 07:16 PM Ordering Location: [facility] PERI[facility]AT[facility] Received: 03/11/2023 09:54 AM SERVICES Pathologist: Miri Kim MD Specimen: Prostate, BPH PROSTATE, SIMPLE PROSTATECTOMY: - 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 ProstateReceived fresh labeled with the patient's name, medical record number and "prostate" is a 78.7 g, 8.5 x 8.5 x 2.5 cm aggregate of prostatic parenchyma.The outer surface is carrero-pink, smooth to shaggy with a focal area of cautery. The specimen is serially sectioned to revealtan-pink to yellow, bulging cut surfaces with no gross lesions. Water Pump Servicer sections are submitted in [id number].WILMER Lopez, HT (ASCP)Sections of the prostate have a nodule composed of interlacing fascicles of smooth muscle. Desmin and caldesmon were performed, with appropriate controls, and diffuse staining is identified. AMCAR and CK903 were performed on a focus of cauterized slightly atypical glands, and no increased AMCAR staining is identified. These cauterized glands also have basal cells highlighted with CK903. No high-grade prostatic intraepithelial neoplasia or malignancy is identified.The interpretation of this case included the use of immunohistochemistry or special stains.Control Slides Examined: In-house known positive controls were evaluated along with the test tissue. Thesecontrol slides run alongside of the patients sample show appropriate staining. Internal positive andnegative controls when available are evaluated Immunohistochemistry technical testing was performed at [facility], Pathology Laboratory where it was developed and its performance characteristics were determined. It has not been cleared or approved by the U.S. Food and Drug Administration. The FDA has determined that such clearance or approval is not necessary. The test is used for clinical purposes. It should not be regarded as investigational or for research. This laboratory is certified under the Clinical Laboratory Improvement Amendments of 1988 (CLIA-88) as qualified to perform high complexity clinical laboratory testing.[facility], Department of Pathology, [address] [place] [address], [facility], [address] [place] [address], [facility], [facility], [address] [place] [address], RGF 12 [id number] 14:34:40Ventricular Rate 69 BPMAtrial Rate 69 BPMP-R Interval 142 msQRS Duration 96 msQ-T Interval 420 msQTC Calculation(Bazett) 450 msP Richmond 43 degreesR Richmond 7 degreesT [place] 41 degrees Sinus rhythm with frequent Premature ventricular complexes in a pattern of bigeminyNonspecific ST abnormalityAbnormal ECGWhen compared with ECG of 11-MAR-2023 09:01,Premature ventricular complexes are now PresentConfirmed by Teodoro RAMOS MD, CONNOR ([id number]) on 03/16/2023 2:34:39 [facility] BASIC METABOLIC [id number] 06:49:06 Test Item Value Reference Range Interpretation Comments SODIUM (BEAKER) 141 meq/L 136-145 (test code = 381) POTASSIUM 3.7 meq/L 3.5-5.1 (BEAKER) (test code = 379) CHLORIDE (BEAKER) 113 meq/L 98-107 H (test code = 382) CO2 (BEAKER) 18 meq/L 22-29 L (test code = 355) BLOOD UREA 14 mg/dL 7-21 NITROGEN (BEAKER) (test code = 354) CREATININE 1.33 mg/dL 0.57-1.25 H (BEAKER) (test code = 358) GLUCOSE RANDOM 85 mg/dL 70-105 (BEAKER) (test code = 652) CALCIUM (BEAKER) 8.1 mg/dL 8.4-10.2 L (test code = 697) EGFR (BEAKER) 60 Interpretatio n of eGFR (test code = mL/min/1.73 values Stage D escription 1092) sq m Result G1 Oscorro l or high >=90 G2 Mildly decreased [...] not appl icable for dialysis patien ts Operations Plant Attendant ID - IRMA WCBC (HEMOGRAM ONLY)2023-03-16 05:56:55 [...] WBC 0-0 (BEAKER) (test code = 413) POC-Glucose [id number] 21:18:40 Test Item Value Reference Range Interpretation Comments POC-Glucose Meter (test 141 mg/dL 70-110 H : TE STED AT [facility] code = 1538) [address] [place], [address]: Operations Plant Attendant/Techni carmelo ID = [id number] for SEMIEN, JARRET Lab Interpretation (test Abnormal code = 68755-9) [facility] [id number] 21:18:40 Test Item Value Reference Range Interpretation Comments POC-GLUCOSE METER 141 mg/dL 70-110 H : TESTED A T BSC 6720 (BEAKER) (test code = [place], 1538) [address]: Operations Plant Attendant/Techni carmelo ID = [id number] for JARRET MAGALLON BASIC METABOLIC [id number] 05:32:11 Test Item Value Reference Range Interpretation [...] not appl icable for dialysis patien ts Operations Plant Attendant ID - ADMINCALCIUM, [id number] 04:46:48 Test Item Value Reference Range Interpretation [...] WBC 0-0 (BEAKER) (test code = 413) 2D Echo W/Doppler(CW/PW/Color)2023-03-14 15:39:40Transthoracic Echocardiography Report (TTE) Demographics Patient Name GILLIAN GARCIA Date of Study03/14/2023 Gender Male Visit Number [id number] Race Room Number 1663 Number Date of 1955 Referring Physician Chris Monroe MD Age 67 year(s) Tree Farmer Meredith Wilkerson Metal Finish Inspector Mary Deng, Interpreting Valdez Yeh RDCS Physician MDProcedure Type of Study TTE procedure:2DECHO W DOPPLER(CW/PW/COLOR) (RAYA)Indications:Acute Chest Pain/ Suspected CAD.Clinical HistoryCADHLDHTNOSAPADCORONARY STENT PLACEMENTILIAC ARTERY STENTHeight: 70 inches Weight: 102.06 kg (225 lbs) BSA: 2.19 m^2 BMI: 32.28kg/m^2HR: 73 bpm BP: 135/115 mmHg Summary The left ventricle is chamber size (by vol index) is normal (male - LVED vol - 34-74ml/m2). Mild concentric LV hypertrophy. The LV apex appears hypertrabeculated; consider Definity contrast evaluation . All of the LV segments contract normally . LVEF by Bridges's method of disk assessment is normal (>60%) . Degree of diastolic dysfunction (LAP assessment) is inconclusive due to arrhythmia . Unable to estimate peak systolic PA pressure; inadequate TR velocity signal. Signature Findings Left Ventricle The LV endocardium is adequately visualized. The left ventricle is chamber size (by vol index) is normal (male - LVED vol - 34-74ml/m2). Mild concentric LV hypertrophy. The LV apex appears hypertrabeculated; consider Definity contrast evaluation . All of the LV segments contract normally . LVEF by Bridges's method of disk assessment is normal (>60%) . Degree of diastolic dysfunction (LAP assessment) is inconclusive due to arrhythmia . Left Atrium LA size is normal . Right Ventricle RV chamber size is normal . Global RV systolic function is normal . Right Atrium RA size isnormal. Atrial Septum Normal interatrial septum by available views. Aortic Valve Mild AoV cusp calcification. Mild aortic regurgitation. No evidence of aortic stenosis. Mitral Valve Normal MV structure. Trace mitral regurgitation. Tricuspid Valve TV structure is normal. A trace of tricuspid regurgitation. Unable to estimate peak systolic PA pressure; inadequate TR velocity signal. Pulmonic Valve Normal PV structure and function by limited views and Doppler. A trace of pulmonary regurgitation. Aorta Aortic root size (Sinus of Valsalva diameter) is normal. 3.9 cm Pericardium No pericardial effusionis visualized. IVC/SVC/PA/PV/Pleural The estimated RA pressure by IVC dynamics 0-5mmHg .Chambers/Structures Left Atrium LA Volume: 67.84 ml LA Area: 20.74 cm^2 LA Vol. Index: 31 ml/m^2 Left Ventricle LVIDd: 4.56 cm LVEDV:145.33 ml LVIDs: 2.92 cm LV Septum Diastolic: 1.19 cm LV PW Diastolic: 1.22 cm LVLength: 9.63 cm LVEDV Bridges's:135.06 ml LV FS: 36 % LVESV Bridges's:51.66 ml LVEF Bridges's: 61.8% LVEDVI: 62 ml/m^2 LVESVI: 24 ml/m^2 LVOT Diameter: 2.15 cm Right Atrium RA Area: 20.53 cm^2 Right Ventricle RVOT VTI: 12.29 cm TAPSE: 2.43 cmAorta Ao Root S of Mare.: 3.87 cm Ascending Aorta: 3.77 cmDoppler/Quantitative Measurements Mitral Valve MV Peak E-Wave: 0.83 m/s MV Peak A-Wave: 0.79 m/s E/A Ratio: 1.05 Peak Gradient: 2.74 mmHg Deceleration Time: 248.5 msec MV Dat. Peak: Tissue Doppler E' Lateral Velocity: 0.07 m/s E/E': 12.02 Aortic Valve Peak Velocity: 1.22 m/s Mean Velocity: 0.82 m/s Peak Gradient: 5.94 mmHg Mean Gradient: 3.09 mmHg AV Area (continuity): 3.14 cm^2 AV VTI: 24.72 cm AR P1/2t: 504.8 msec Deceleration Time: 1740.8 msec AV DVI: 0.87 LVOT Peak Velocity: 0.98 m/s Peak Gradient: 3.85 mmHg Mean Velocity: 0.71 m/s Mean Gradient: 2.2 mmHg LVOT Diameter: 2.15 cm LVOT VTI: 21.4 cmLVOT Area: 3.63 cm^2 LVOT SV:77.65 ml LVOT CO: 5.67 l/min LVOT CI: 2.59 l/min/m^2 Pulmonic Valve Peak Velocity: 0.86 m/s Peak Gradient: 2.94 mmHg Mean Velocity: 0.61 m/s Mean Gradient: 1.51 mmHg AR ED Velocity: 1.09 m/sCH[facility]inoRPR 2023-03-14 13:22:19 Test Item Value Reference Range Interpretation Comments RPR SCREEN (BEAKER) (test code = Nonreactive Nonreactive 420) BASIC METABOLIC [id number] 05:45:00 Test Item Value Reference Range Interpretation [...] not appl icable for dialysis patien ts Operations Plant Attendant ID - BVCBC (HEMOGRAM ONLY)2023-03-14 04:59:49 Test [...] 0-0 (BEAKER) (test code = 413) NM lung scan (V/Q)2023-03-13 14:42:56PROCEDURE: LUNG SCAN - perfusion only CPT CODE: 68376 INDICATION: Chest pain. TECHNIQUE: 5.5 mCi of Tc-99m MAA was injected intravenously, and staticperfusion images were obtained in multiple projections. In addition,SPECT images were obtained. Ventilation imaging was not performed due toCOVID precautions. Correlation: Chest x-ray March 12, 2023. FINDINGS:There is no significant moderate or large size segmental/subsegmentalperfusion defect identified.[facility]2023-03-13 14:42:56 [facility] 1955 Sex: MPROCEDURE: LUNG SCAN - perfusion onlyCPT CODE: [id number]: Chest pain.TECHNIQUE: 5.5 mCi of Tc-99m MAA was injected intravenously, and staticperfusion images were obtained in multiple projections. In addition,SPECT images were obtained. Ventilation imaging was not performed due toCOVID precautions.Correlation: Chest x-ray March 12, 2023.FINDINGS:There is no significant moderate or large size segmental/s ubsegmentalperfusion defect identified.IMPRESSION:No suspicious findings to suggest an acute pulmonary embolism.Electronically Signed By: Bird Hansen03/13/2023 14:45 CDTWorkstation Name: [id number] 09:24:42 Test Item Value Reference Range Interpretation [...] Borderline 130-159 High 160-189 Very High >=190 Operations Plant Attendant ID - ADMINOperator ID - ADMINBASIC METABOLIC [id number] 07:43:55 Test Item Value Reference Range Interpretation [...] not appl icable for dialysis patien ts Operations Plant Attendant ID - ADMINOperator ID - DESIRAE BCBC [...] 413) XR CHEST 1 VIEW PORTABLE / [id number] 21:05:21 [facility] : 1955 Sex: M ADDENDUM #[address] or a 1 month follow-up chest radiograph is recommendedfor further evaluation of the left basilar opacity to excludemalignancy.These findings were relayed to Chris Monroe via copygram on03/12/2023 at 9:04 PM.Electronically Signed By: Joshua Roth ORIGINAL REPORT TECHNIQUE: Frontal view of the chest.INDICATION: tachy, hypoxia.COMPARISON: CT from 03/11/2023.FINDINGS:LINES/TUBES: None.LUNGS: There are streaky opacities in the [...] Signed By: Joshua Roth03/12/2023 21:07 CDTWorkstation Name: [id number] chest 1 view portable / [id number] 19:47:34 ORIGINAL REPORT TECHNIQUE: Frontal view of the chest. INDICATION: tachy, hypoxia. COMPARISON: CT from 03/11/2023. FINDINGS: LINES/TUBES: None. LUNGS: There are streaky opacities in the left base. No consolidation orpulmonary edema. PLEURA: No pneumothorax or significant pleural effusion. HEART AND MEDIASTINUM: The cardiac silhouette is normal in size. Thereis mild rightward deviation of the trachea, most likely due to theaortic arch. SOFT TISSUES AND BONES: Unremarkable.[facility] renal [id number] 18:52:54Ultrasound of the Kidneys Clinical History: R/o hydro, Gray COMPARISON: None. Discussion: Grayscale and color ultrasound examination of the kidneys and bladderwas performed. Right kidney: 11.5 x 6.8 x 5.2 cm, with cortical thickness of 1.7 cm. Normal cortical echogenicity. No mass. No shadowing calculus. Nohydronephrosis. 1.7 x 1.4 x 1.4 cm partially exophytic simple appearingrenal cyst from the upperpole of the right kidney. Additional simpleappearing renal cysts partially exophytic from the mid pole of rightkidney measuring 1.5 x 1.4 x 1.3 cm. Left kidney: 13.6 x 7.0 x 6.2 cm, with cortical thickness of 1.9 cm. Normal cortical echogenicity. No mass. No shadowing calculus. Nohydronephrosis. Simple appearing partially exophytic 2.6 x 2.5 x 2.4 cmcyst from the kidney. Additional 1.3 x 1.2 x 1.0 cm simple appearingpartially exophytic cyst from the lower pole left kidney. Limited doppler evaluationof bilateral main renal arteries and veinsdemonstrate patency. Bladder: Shin catheter within decompressed bladder..[facility] RENAL [id number] 18:52:54 [facility] 1955 Sex: MUltrasound [...] bilateralmain renal arteries and veinsdemonstrate patency. Bladder: Shin catheter within decompressed bladder..IMPRESSION:Impression:1. No hydronephrosis. Simple appearing bilateral renal cysts; nofollow-up imaging is recommended.2. Shin catheter within decompressed bladder.Electronically Signed By: Ricardo Dia03/12/2023 18:54 CDTWorkstation Name: [id number] Brain Without IV [id number] 10:54:32MR BRAIN WITHOUT IV CONTRAST INDICATION: Neuro deficit, acute, stroke suspected TECHNIQUE: Multiplanar, multisequence MR imaging of the brain wasobtained. COMPARISON: None FINDINGS:Small acute infarcts of the frontal subcortical white matter bilaterally(axial DTI image 192, 184), the left inferior parietal lobe, and leftoccipital lobe. No hemorrhagic conversion or significant mass effect. Scattered T2/FLAIR hyperintense foci within the periventricular andsubcortical white matter are nonspecific, however, statisticallyrepresent chronic microvascular ischemic changes. No hydrocephalus. Orbits are within normal limits. No obstructive paranasal sinus disease.[facility] [id number] 10:54:32 [facility] : 1955 Sex: MMR [...] Signed By: Trinity Henry03/12/2023 10:56 CDTWorkstation Name: [id number] 10:40:54 Test Item Value Reference Range Interpretation [...] 5.7- 6.4% indicates increased risk for diabetes (prediabetes)."Operations Plant Attendant ID - ADMBASIC METABOLIC [id number] 07:14:24 Test Item Value Reference Range Interpretation [...] not appl icable for dialysis patien ts Operations Plant Attendant ID - DESIRAE BLIPID [id number] 07:09:24 Test Item Value Reference Range Interpretation Comments TRIGLYCERIDES (BEAKER) (test code = 275 mg/dL 540) CHOLESTEROL (BEAKER) (test code = 77 mg/dL 631) HDL CHOLESTEROL (BEAKER) (test code 13 mg/dL = 976) LDL CHOLESTEROL CALCULATED (BEAKER) 9 mg/dL (test code = 633) Triglyceride Reference Range: Low Risk <150 Borderline 150-199 High Risk 200-499 Very High Risk >=500Cholesterol Reference Range: Low Risk <200 Borderline 200-239 High Risk >240HDL Cholesterol Reference Range: Low Risk >=60 High Risk <40LDL Cholesterol Reference Range: Optimal <100 Near Optimal 100-129 Borderline 130-159 High 160-189 Very High >=190 Operations Plant Attendant ID - DESIRAE BVITAMIN [id number] 06:52:56 Test Item Value Reference Range Interpretation Comments VITAMIN B12 (BEAKER) (test code = 177 pg/mL 213-816 L 774) Operations Plant Attendant ID - ADMINTSH/FREE T4 IF [id number] 06:52:56 Test Item Value Reference Range Interpretation Comments THYROID STIMULATING HORMONE 0.605 uIU/mL 0.350-4.940 (BEAKER) (test code = 772) Operations Plant Attendant ID - ADMINHIGH SENSITIVITY TROPONIN [id number] 06:34:52 Test Item Value Reference Range Interpretation Comments HIGH SENSITIVITY TROPONIN I (test 57 pg/ml <=35 H code = 5047248) Operations Plant Attendant ID - DESIRAE BThe SOFTWARE TEST ENGINEER STAT High Sensitivity Troponin-I results should be used in conjunction with other diagnostic information such as ECG, clinical observations and information, and patient symptoms to aid in the diagnosis of IN.CBC (HEMOGRAM ONLY)2023-03-12 06:08:07 Test Item Value Reference [...] (test code = 413) HIGH SENSITIVITY TROPONIN [id number] 21:42:50 Test Item Value Reference Range Interpretation Comments HIGH SENSITIVITY TROPONIN I (test 69 pg/ml <=35 H code = 4734959) Operations Plant Attendant ID - DESIRAE BThe SOFTWARE TEST ENGINEER STAT High Sensitivity Troponin-I results should be used in conjunction with other diagnostic information such as ECG, clinical observations and information, and patient symptoms to aid in the diagnosis of IN.HIGH SENSITIVITY TROPONIN [id number] 19:20:51 Test Item Value Reference Range Interpretation Comments HIGH SENSITIVITY TROPONIN I (test 69 pg/ml <=35 H code = 0692590) Operations Plant Attendant ID - MMThe SOFTWARE TEST ENGINEER STAT High Sensitivity Troponin-I results should be used in conjunctionwith other diagnostic information such as ECG, clinical observations and information, and patient symptoms to aid in the diagnosis of IN.[id number] 15:25:09 Test Item Value Reference Range Interpretation [...] thrombosis is within 95-100% range.HIGH SENSITIVITY TROPONIN [id number] 15:18:05 Test Item Value Reference Range Interpretation Comments HIGH SENSITIVITY TROPONIN I (test 55 pg/ml <=35 H code = 3158012) Operations Plant Attendant ID - MMThe SOFTWARE TEST ENGINEER STAT High Sensitivity Troponin-I results should be used in conjunctionwith other diagnostic information such as ECG, clinical observations and information, and patient symptoms to aid in the diagnosis of IN.CTA [id number] 14:39:55 [facility] : 1955 Sex: MCTA BRAIN, [...] 3-D volumetric reformatted images were created at [place] workstation. Precontrast images of the brain were alsoobtained. Stenosis evaluation reported in compliance with NASCET criter ia.DOSE REDUCTION: Dose modulation, iterative reconstruction, and/orweight-based adjustment of the mA/kV was utilized to reduce theradiation dose to as low as reasonably achievable.FINDINGS: CTA BRAIN:Internal carotid arteries: Petrous, cavernous and supraclinoid portionspatent. Middle cerebral arteries: There is a attenuation of distal MCA S7aoavedtb bilaterally, presumably atherosclerotic. Bilateral MCA X2syaokevy demonstrate normal contrast enhancement.Anterior cerebral arteries: Bilateral CHRISTI A1-A2 branches demonstratenormal contrast enhancement.Basilar system: Normal contrast opacification of the vertebrobasilarsystem.Posterior cerebral arteries: Normal contrast opacification of thebilateral BANKING SERVICES OFFICER P1-P2 branches.Venous opacification: Major dural sinuses unremarkable [...] Signed By: Trinity Henry03/11/2023 14:42 CDTWorkstation Name: [id number] BRAIN CEREBRAL PERFUSION [id number] 14:39:55 [facility] : 1955 Sex: MCTA [...] 3-D volumetric reformatted images were created at [place] workstation. Precontrast images of the brain were alsoobtained. Stenosis evaluation reported in compliance with NASCET criter ia.DOSE REDUCTION: Dose modulation, iterative reconstruction, and/orweight-based adjustment of the mA/kV was utilized to reduce theradiation dose to as low as reasonably achievable.FINDINGS: CTA BRAIN:Internal carotid arteries: Petrous, cavernous and supraclinoid portionspatent. Middle cerebral arteries: There is a attenuation of distal MCA H9qnujybdl bilaterally, presumably atherosclerotic. Bilateral MCA Q8dvkptjwp demonstrate normal contrast enhancement.Anterior cerebral arteries: Bilateral CHRISTI A1-A2 branches demonstratenormal contrast enhancement.Basilar system: Normal contrast opacification of the vertebrobasilarsystem.Posterior cerebral arteries: Normal contrast opacification of thebilateral BANKING SERVICES OFFICER P1-P2 branches.Venous opacification: Major dural sinuses unremarkable [...] Signed By: Trinity Henry03/11/2023 14:42 CDTWorkstation Name: [id number] 14:39:55[facility] : 1955 Sex: MCTA BRAIN, [...] 3-D volumetric reformatted images were created at [place] workstation. Precontrast images of the brain were alsoobtained. Stenosis evaluation reported in compliance with NASCET criter ia.DOSE REDUCTION: Dose modulation, iterative reconstruction, and/orweight-based adjustment of the mA/kV was utilized to reduce theradiation dose to as low as reasonably achievable.FINDINGS: CTA BRAIN:Internal carotid arteries: Petrous, cavernous and supraclinoid portionspatent. Middle cerebral arteries: There is a attenuation of distal MCA T6kcsepsoa bilaterally, presumably atherosclerotic. Bilateral MCA B0bcwgzphk demonstrate normal contrast enhancement.Anterior cerebral arteries: Bilateral CHRISTI A1-A2 branches demonstratenormal contrast enhancement.Basilar system: Normal contrast opacification of the vertebrobasilarsystem.Posterior cerebral arteries: Normal contrast opacification of thebilateral BANKING SERVICES OFFICER P1-P2 branches.Venous opacification: Major dural sinuses unremarkable [...] Signed By: Trinity Henry03/11/2023 14:42 CDTWorkstation Name: [id number] 14:39:55CTA BRAIN, CT BRAIN CEREBRAL PERFUSION ANALYSIS, CTA CAROTIDBRAIN CT WITHOUT CONTRAST INDICATION: Stroke, follow upSymptoms onset less than 6 hours and NIHSS 6 or greater COMPARISON: CT head of the same date TECHNIQUE:Rapid acquisition spiral images were obtained between the aortic archand the cranial vertex during intravenous contrast infusion toreconstruct axial images and angiographic 3D maximum intensityprojections (MIP). 3-D volumetric reformatted images were created at [place] workstation. Precontrast images of the brain were alsoobtained. Stenosis evaluation reported in compliance with NASCET criteria. DOSE REDUCTION: Dose modulation, iterative reconstruction, and/orweight-based adjustment of the mA/kV was utilized to reduce theradiation dose to as low as reasonably achievable. FINDINGS: CTA BRAIN:Internal carotid arteries: Petrous, cavernous and supraclinoid portionspatent. Middle cerebral arteries: There is a attenuation of distal MCA W2sljsucvk bilaterally, presumably atherosclerotic. Bilateral MCA M8gbnbbmiy demonstrate normal contrast enhancement.Anterior cerebral arteries: Bilateral CHRISTI A1-A2 branches demonstratenormal contrast enhancement.Basilar system: Normal contrast opacif ication of the vertebrobasilarsystem.Posterior cerebral arteries: Normal contrast opacification of thebilateral BANKING SERVICES OFFICER P1-P2 branches.Venous opacification: Major dural sinuses unremarkable for bolus timing.Additional findings: None. CT PERFUSION:Technique:Arterial input function: ACAVenous outflow function: TorcularSite of normal perfusion: right anterior territoryParametric Maps: Core infarct: Using the threshold of cerebral blood flow less than 30%,there is an ischemic core in the N/A territory with a total volume ofischemic core of N/A cc. Total hypoperfusion: Using the threshold of Tmax greater than 6 seconds,there is an area of hypoperfusion in the N/A territory with a totalvolume of hypoperfusion of N/A cc. Penumbra: The mismatch volume is N/A cc. The mismatch ratio is N/A. CTA NECK:Common carotid arteries: There is normal contrast opacification of thebilateral common carotid arteries.Cervical internal carotid arteries: Normal contrast opacification of thebilateral cervical internal carotid arteries without significantstenosis by NASCET criteria.Vertebral arteries: Normal contrast opacification of the bilateralcervical vertebral arteries.Arch anatomy: Conventional. Nonvascular findings:No acute findings within the neck soft tissues.[facility]CT [facility] cerebral perfusion [id number] 14:39:55CTA BRAIN, CT BRAIN CEREBRAL PERFUSION ANALYSIS, CTA CAROTIDBRAIN CT WITHOUT CONTRAST INDICATION: Stroke, follow upSymptoms onset less than 6 hours and NIHSS 6 or greater COMPARISON: CT head of the same date TECHNIQUE:Rapid acquisition spiral images were obtained between the aortic archand the cranialvertex during intravenous contrast infusion toreconstruct axial images and angiographic 3D maximum in tensityprojections (MIP). 3-D volumetric reformatted images were created at [place] workstation. Precontrast images of the brain were alsoobtained. Stenosis evaluation reported in compliance with NASCET criteria. DOSE REDUCTION: Dose modulation, iterative reconstruction, and/orweight-based adjustment of the mA/kV was utilized to reduce theradiation dose to as low as reasonably achievable. FINDINGS: CTA BRAIN:Internal carotid arteries: Petrous, cavernous and supraclinoid portionspatent. Middle cerebral arteries: There is a attenuation of distal MCA B0qmoyuabq bilaterally, presumably atherosclerotic. Bilateral MCA T4xlqtdryi demonstrate normal contrast enhancement.Anterior cerebral arteries: Bilateral CHRISTI A1-A2 branches demonstratenormal contrast enhancement.Basilar system: Normal contrast opacification of the vertebrobasilarsystem.Posterior cerebral arteries: Normal contrast opacification of thebilateral BANKING SERVICES OFFICER P1-P2 branches.Venous opacification: Major dural sinuses unremarkable for bolus timing.Additional findings: None. CT PERFUSION:Technique:Arterial input function: ACAVenous outflow function: TorcularSite of normal perfusion: right anterior territoryParametric Maps: Core infarct: Using the threshold of cerebral blood flow less than 30%,there is an ischemic core in the N/A territory with a total volume ofischemic core of N/A cc. Total hypoperfusion: Using the threshold of Tmax greater than 6 seconds,there is an area of hypoperfusion in the N/A territory with a totalvolume of hypoperfusion of N/A cc. Penumbra: The mismatch volume is N/A cc. The mismatch ratio is N/A. CTA NECK:Common carotid arteries: There is normal contrast opacification of thebilateral common carotid arteries.Cervical internal carotid arteries: Normal contrast opacification of thebilateral cervical internal carotid arteries without significantstenosis by NASCET criteria.Vertebral arteries: Normal contrast opacification of the bilateralcervical vertebral arteries.Arch anatomy: Conventional. Nonvascular findings:No acute findings within the neck soft tissues.[facility] HospitalCTA [id number] 14:39:55CTA BRAIN, CT BRAIN CEREBRAL PERFUSION ANALYSIS, CTA CAROTIDBRAIN CT WITHOUT CONTRAST INDICATION: Stroke, follow upSymptoms onset less than 6 hours and NIHSS 6 or greater COMPARISON: CT head of the same date TECHNIQUE:Rapid acquisition spiral images were obtained between the aortic archand the cranialvertex during intravenous contrast infusion toreconstruct axial images and angiographic 3D maximum intensityprojections (MIP). 3-D volumetric reformatted images were created at [place] workstation. Precontrast images of the brain were alsoobtained. Stenosis evaluation reported in compliance with NASCET criteria. DOSE REDUCTION: Dose modulation, iterative reconstruction, and/orweight-based adjustment of the mA/kV was utilized to reduce theradiation dose to as low as reasonably achievable. FINDINGS: CTA BRAIN:Internal carotid arteries: Petrous, cavernous and supraclinoid portionspatent. Middle cerebral arteries: There is a attenuation of distal MCA H5rkeiymdq bilaterally, presumably atherosclerotic. Bilateral MCA C1hqsdaqin demonstrate normal contrast enhancement.Anterior cerebral arteries: Bilateral CHRISTI A1-A2 branches demonstratenormal contrast enhancement.Basilar system: Normal contrast opacification of the vertebrobasilarsystem.Posterior cerebral arteries: Normal contrast opacification of thebilateral BANKING SERVICES OFFICER P1-P2 branches.Venous opacification: Major dural sinuses unremarkable for bolus timing.Additional findings: None. CT PERFUSION:Technique:Arterial input function: ACAVenous outflow function: TorcularSite of normal perfusion: right anterior territoryParametric Maps: Core infarct: Using the threshold of cerebral blood flow less than 30%,there is an ischemic core in the N/A territory with a total volume ofischemic core of N/A cc. Total hypoperfusion: Using the threshold of Tmax greater than 6 seconds,there is an area of hypoperfusion in the N/A territory with a totalvolume of hypoperfusion of N/A cc. Penumbra: The mismatch volume is N/A cc. The mismatch ratio is N/A. CTA NECK:Common carotid arteries: There is normal contrast opacification of thebilateral common carotid arteries.Cervical internal carotid arteries: Normal contrast opacification of thebilateral cervical internal carotid arteries without significantstenosis by NASCET criteria.Vertebral arteries: Normal contrast opacification of the bilateralcervical vertebral arteries.Arch anatomy: Conventional. Nonvascular findings:No acute findings within the neck soft tissues.[facility] HospitalCT BRAIN/STROKE TEST [id number] 14:19:17 [facility] : 1955 Sex: MCT [...] Signed By: Trinity Henry03/11/2023 14:21 CDTWorkstation Name: [id number] brain/stroke test [id number] 14:19:17CT BRAIN/STROKE TEST DESIGN INDICATION: Neuro deficit, acute, stroke suspected COMPARISON: None TECHNIQUE: Noncontrast axial CT imaging of the brain and skull. DOSE REDUCTION: Dose modulation, iterative reconstruction, and/orweight-based adjustment of the mA/kV was utilized to reduce theradiation doseto as low as reasonably achievable. FINDINGS:No acute intracranial hemorrhage. Loss of laguna- white differentiation along the right occipital convexityconcerning for developing infarct. Scattered foci ofhypoattenuation are present throughout theperiventricular and subcortical white matter, and, although nonspecificby imaging, statistically represent mild chronic microvascular ischemicchanges in this age group. No hydrocephalus. Orbits are within normal limits. No obstructive paranasal sinus disease.[facility] HospitalPOCT-GLUCOSE [id number] 13:49:06 Test Item Value Reference Range Interpretation Comments POC-GLUCOSE METER 154 mg/dL 70-110 H : TESTED A T [facility] ([facility]) (test code = WALE Amado [facility], 1538) [address]: Operations Plant Attendant/Techni carmelo ID = [id number] for No rthrup, Raquel HIGH SENSITIVITY TROPONIN [id number] 11:24:00 Test Item Value Reference Range Interpretation Comments HIGH SENSITIVITY TROPONIN I (test 47 pg/ml <=35 H code = 8279982) Operations Plant Attendant ID - MMThe SOFTWARE TEST ENGINEER STAT High Sensitivity Troponin-I results should be used in conjunctionwith other diagnostic information such as ECG, clinical observations and information, and patient symptoms to aid in the diagnosis of IN.BASIC METABOLIC [id number] 07:58:20 Test Item Value Reference Range Interpretation [...] (test code = 697) EGFR (BEAKER) 28 Interpretatio n of eGFR (test code = [...] not appl icable for dialysis patien ts Operations Plant Attendant ID - MMCALCIUM, [id number] 05:43:51 Test Item Value Reference Range Interpretation [...] (BEAKER) (test code = 413) BASIC METABOLIC [id number] 21:04:54 Test Item Value Reference Range Interpretation [...] not appl icable for dialysis patien ts Operations Plant Attendant ID - ADMINCBC (HEMOGRAM ONLY)2023-03-10 20:38:36 Test [...] WBC 0-0 (BEAKER) (test code = 413) [id number] 00:00:00Ordered by an unspecified provider.[facility] Notes Date/Time Note Provider Source 2023-03-10 22:37:37 [id number]:37:37 [facility] OPERATIVE/PROCEDURE REPORTSAQIB FRENCHFACILITY: SLEHBilling #: [id number] Room: PER SOPRMR #: [id number] : 1955DATE OF PROCEDURE: 03/10/2023SURGEON: KD PatrickREOPERATIVE DIAGNOSES:1. Enlarged prostate/benign prostatic hyperplasia with lowerurinary tract obstruction and symptoms.2. Elevated prostate-specific antigen, status post negativeprostate biopsy with transrectal ultrasound revealing 190 ggland.POSTOPERATIVE DIAGNOSES:1. Enlarged prostate/benign prostatic hyperplasia with lowerurinary tract obstruction and symptoms.2. Elevated prostate-specific antigen, status post negativeprostate biopsy with transrectal ultrasound revealing 190 ggland.3. Pelvic intra-abdominal adhesions.PRINCIPAL PROCEDURES:1. Robot-assisted laparoscopic simple/retropubic prostatectomy.2. Extensive lysis of adhesions.INDICATIONS FOR PROCEDURE: [facility] with progressing urinary symptoms and an elevated PSA.He underwent evaluation, which included cystoscopy andeventually prostate biopsy and evaluation was elevated PSA andwas found to have significant 4 lobar intravesical projectionwith an extended prostatic urethral length significant energyindicating lateral lobar hypertrophy and a projectingintravesical median lobe on cystoscopy. His prostate biopsywas completed on October 06 of this year revealing a 186.05 ggland with a PSA density of 0.05 negative for malignancy.Because of this bothersome urinary symptoms, he stronglydesired therapy for it and elected to proceed surgically. Giventhe size of his prostate, transurethral procedures were not anoption with the exception of perhaps the holmium laserenucleation of the prostate, but when I explained that I didnot perform that procedure, he suggested he wanted to havesurgery done by me, which would be the robotic simpleprostatectomy.PROCEDURE NOTE: The patient was consented in the preoperativeholding area before being transferred to the operative suite,where general anesthesia was induced. He was given Ancef 2 gIV antimicrobial prophylaxis and Pneumoboots were provided forDVT prophylaxis. He was supine on the procedure table, paddedand secured appropriately and an OG tube was placed for gastricdecompression. Pneumoboots were provided for DVT prophylaxis.His abdomen was shaved, prepped with ChloraPrep as well hisgenitalia, and draped in a standard fashion. An 18-Frenchurethral Shin catheter was placed via his urethra into hisbladder with ease with drainage of clear yellow urine.Laparoscopic entry into the abdomen was performed via asupraumbilical midline incision that was made approximately 2.5cm in length. This was incised using a 15 blade, afterinstilling 0.25% Marcaine, and deepened through thesubcutaneous tissues down to the fascia using Bovieelectrocautery. The fascia was incised using a 15 blade, andKocher clamps were used to tow picker the internal abdominalaponeurosis fascia, and this was similarly incised. Theperitoneal cavity was entered, and a 15 mm camera port balloonport was then placed. Appropriate insufflation pressures wereobtained, and so we increased the pressure to 12 mmHg. Withthe abdomen appropriately distended, we then marked out andplaced the additional 3 robotic arms for a standard 4-armrobotic approach. The 12 mm assistant project engineer port was in the leftlower quadrant and a 5 mm assistant project engineer port was in the left upperquadrant. These were all placed under direct vision. Therobot was then docked and the patient had been placed in theTrendelenburg position. At this point, we observed significantpelvic adhesions, likely from prior surgery held in and aroundthat region. As a result, I began lysis of those adhesions,which extended from the left mid lower quadrant all the way tothe right mid lower quadrant including the rectum adherent tothe posterior surface of the bladder. Once each of theseadhesions was released without any evidence of injury or traumato the bowel, we then filled the bladder retrograde via thecatheter with 300 mL of sterile water to distend it beforeincising the bladder in an anteroposterior direction andentering the bladder. A stay suture of 2-0 Vicryl was placedat each corner to minimize tearing of the incision, and 2-0Vicryl stay sutures were used at each corner of the incision inorder to open it in a rectangular configuration. The urine wasaspirated out of the bladder and the ureteral orifices werevisualized and a 5-Bahraini feeding tube was placed via theureteral orifices to shoaib them. 3-0 chromic was used to holdthose feeding tubes in place. We then utilized a 0 Vicryl tograsp the median lobar tissue and incised the mucosa beneath itleaving a large lip of mucosa for ultimate reconstruction downthe line. Once the adenoma was removed from the lip of themucosa intravesically projecting, we continued the dissectionposteriorly and extending into the right lateral wall of theprostate nearest the bladder neck. Similar extension wasperformed to the left at the bladder neck and then we employeda tenaculum to elevate the tissue further. This was done viathe 4th arm. Continued dissection, blunt and sharp, withelectrocautery was performed to circumferentially release allof the adenoma from posterior to lateral to anterior dividingthe mucosa where appropriate along the lateral and anteriorcomponent of the bladder neck. We continued the dissectionuntil the adenoma was essentially delivered out of theprostatic fossa as we dissected it all the way to the putativeapex of the prostate. Because of the extensive size of theadenoma, we eventually had to divide the adenoma and take itout in parts. So, the right mid to bladder neck portion of theprostatic adenoma was removed first and then the left mid tobladder neck component of the adenoma was removed. We thenwere able to further dissect deeper and extend beyond theapical aspects of the adenoma and along the apical lateralaspects of the adenoma eventually until the striated sphincterwas visualized. Care was taken to avoid injury to the striatedsphincter and circumferential dissection was then undertakenelevating the adenoma and dissecting that similarly to theapex. Again, given the size of the adenoma remnant, it wasremoved in part, with the left apical mid portion of theprostatic adenoma removed first and then the right apical midportion of the prostatic adenoma. Once the bulk of the adenomahad been removed, we then continued to dissect any residualnodules of BPH that were observed within the prostatic fossauntil a nice smooth channel had been created with nosignificant residual adenoma. A striated sphincter was visiblebeyond a layer of peripheral zone and was uninjured. There wasa slight degree of ooze throughout the case, but no significantbleeding was noted. Bipolar fulguration was performed for anycapillary bleeding that was observed. Once the prostatic fossawas adequately hemostatic, we then utilized 3-0 chromic toadvance the mucosa of the median lobar mucosa all the way downto the cut edge mucosa at the urethra. The remaining mucosa inthe lateral and anterior areas were intermittently approximatedand advanced into the prostatic fossa in order to minimize therisk of bladder neck contracture. Once this had beencompleted, we then advanced the 22-Bahraini 3-way Shin catheterunder direct vision into his bladder and placed 30 mL ofsterile water in the balloon. At this point, we had alreadyremoved the 5-Bahraini ureteral access catheters and cut the 3-0chromic suture that was holding them in place. We thenreconstructed the bladder using 3-0 Vicryl in a running fashionfor the mucosal and inner aspect of the muscularis from thebottom and then from the top. After this, we then retrogradefilled the bladder with approximately 150 mL of saline, andthen performed oxrefn-yv-voljh repairs of any slight leakagethat was observed inferiorly in the incision. Once no longerleaking, we then performed the seromuscular layer closure using2-0 Vicryl again in a running fashion from inferior to midlineand from superior down to midline. Once this was completed, liz again tested the bladder by filling it with 150 to 200 mLof sterile water, and no leaks were noted. At this point, liz removed all of the prostate adenoma by placing it in anEndoCatch bag. Of note, all the prior stay sutures and needleswere removed under direct vision, as well as all Siq-v-traxvmaz, and the counts were correct. We then placed a 19-FrenchBlake drain into the pelvic gutter and placed it to selfsuction. A Brennan-Marie closure of the 12 mm assistant project engineer portusing 0 Vicryl suture was performed under direct vision usingthe robotic camera. All the robotic trocars were removed underdirect vision, and the prostate adenoma within the EndoCatchwas removed via the camera port incision. Each of the incisionsites were copiously irrigated and then the camera portincision was closed using a 0 PDS suture in an akoejlejiylzrhvod-mm-lyxrh fashion. Once adequately closed, we then againirrigated the subcutaneous tissues, instilled them with 0.25%Marcaine, and then closed the skin using 4-0 Monocryl, afterthe camera port incision subcutaneous tissues werereapproximated using 0 Vicryl sutures to minimize the PDSsutures from sticking up through the dermis. Dermabond wasused to seal the skin, and the urethral Shin catheter wasirrigated to ensure patency and there was minimal pinkhematuria. We then connected the catheter 3-way port tocontinuous bladder irrigation using normal saline, and thereturning efflux was light pink on slow drip. The patient wasthen awakened from general anesthesia, transferred to [facility] and then transferred to the recovery room in goodcondition.COMPLICATIONS: None.ESTIMATED BLOOD LOSS: 300 mL.DISCHARGE DISPOSITION: He will be standard robotic simpleprostatectomy pathway, given Valium for bladder spasms in theinitial postoperative period until flatus is passed and then hewill be started on oxybutynin extended release version for thebladder spasms with instructions to avoid taking it 24 hoursprior to the scheduled cystogram, which will occur 10-14 daysfrom the date of surgery, and a subsequent voiding trial. Healso will be given an antimicrobial prescription for eitherCipro or Bactrim, which he should start taking the day prior tothe scheduled cystogram and voiding trial.WR/MODLDD: 03/10/2023 19:49:57DT: 03/10/2023 22:37:37Job #: [id number] signed by: CHRIS MONROE at 2023-03-10 19:49:57.000OPOperative [id number]: [id number]
[2023-08-28 17:59] LABS: Protime INR 0.97
[2023-08-28 18:05] LABS: Absolute Lymphocytes (CBC) 1.7 K/uL (0.7-4.9); Hematocrit 27.4 % (39.6-49.0); Lymphocytes % 15.8 % (15.3-44.8); MCV 67.6 fL (80-100); MPV 8.1 fL (7.6-11.3); Platelets 289 thou/uL (152-406); RBC Red Blood Cell Count 4.05 M/uL (4.33-5.43)
[2023-08-28 18:08] LABS: Potassium 4.2 mEq/L (3.5-5.1); Troponin High Sensitivity 12.8 pg/mL (<58.9)
--- NOTE | 2023-08-28 18:43 | RAD REPORT ---
EXAM DESCRIPTION: Emelynt Single View08/28/2023 6:10 pm CLINICAL HISTORY: Chest pain COMPARISON: August 26, 2023 FINDINGS: Lung bases are hazy. Upper lobes appear clear. The heart is mildly enlarged IMPRESSION: Lung bases are hazy which could be secondary to overlying soft tissue or infiltrates. PA and lateral chest series recommended
[2023-08-28 18:44] LABS: Blood Morphology Comment NOTED (NOT SEEN); Platelet Estimate ADEQ; White Blood Cell Scan OK (OK)
[2023-08-28 18:45] LABS: Hypochromasia 1+
--- NOTE | 2023-08-28 20:00 | RAD REPORT ---
EXAM DESCRIPTION: Yony Pa And Lat (2 Views)08/28/2023 7:54 pm CLINICAL HISTORY: Shortness of breath COMPARISON: August 28, 2023 FINDINGS: Lung bases are clear. Upper lobes are clear. The heart is normal size IMPRESSION: No acute abnormalities displayed
--- NOTE | 2023-08-28 20:39 | RAD REPORT ---
EXAM DESCRIPTION: USExtrem Venous W Compress Bil08/28/2023 8:04 pm CLINICAL HISTORY: Leg swelling COMPARISON: none FINDINGS: The common femoral, superficial femoral, greater saphenous, popliteal and posterior tibial veins bilaterally are compressible and demonstrate augmentation. Doppler demonstrates good flow. Grayscale, color and spectral analysis performed on all vessels IMPRESSION: No evidence of deep venous thrombosis involving either lower extremity.
--- NOTE | 2023-08-28 20:43 | ER ---
Nurse's Notes [facility] Name: Leonardo Way Age: 68 yrs Sex: Male : 1955 Arrival Date: 08/28/2023 Time: 17:10 Bed 4 Private MD: Young Arriaga V Diagnosis: Acute kidney failure, unspecified;Dyspnea-elevated d-dimer;Chest pain, unspecified Presentation: 08/28 17:25 Chief complaint: Patient states: Had blood work done yesterday due to having shortness cm10 of breath for 2 weeks and was called today by Dr. Arriaga to come to the ED due to blood showing "possible blood clot in my lungs.". Coronavirus screen: Vaccine status: Patient reports receiving the 2nd dose of the covid vaccine. Client denies travel out of the [place] in the last 14 days. Ebola Screen: Patient denies travel to an Ebola-affected area in the 21 days before illness onset. No symptoms or risks identified at this time. Initial Sepsis Screen: Does the patient meet any 2 criteria? No. Patient's initial sepsis screen is negative. Does the patient have a suspected source of infection? No. Patient's initial sepsis screen is negative. Risk Assessment: Do you want to hurt yourself or someone else? Patient reports no desire to harm self or others. Onset of symptoms was August 28, 2023. 17:25 Method Of Arrival: Ambulatory cm10 17:25 Acuity: ARIEL 2 cm10 Historical: - Allergies: 17:23 No Known Allergies; cm10 - Home Meds: 17:23 Lyrica Oral [Active]; cm10 - PMHx: 17:23 Neuropathy; Hypercholesterolemia; Cerebrovascular accident; Hypertensive disorder; GERD;cm10 - PSHx: 17:25 Cholecystectomy; Back; cm10 - Immunization history:: Adult Immunizations unknown. - Social history:: Smoking status: Smoking status: Patient reports the use of cigarette tobacco products, denies chronic smoking, but will smoke occasionally. Screenin:28 [facility] ED Fall Risk Assessment (Adult) History of falling in the last 3 months, mb9 including since admission No falls in past 3 months (0 pts) Confusion or Disorientation No (0 pts) Intoxicated or Sedated No (0 pts) Impaired Gait No (0 pts) Mobility Assist Device Used No (0 pt) Altered Elimination No (0 pt) Score/Fall Risk Level 0 - 2 = Low Risk Oriented to surroundings, Maintained a safe environment, Educated pt \\T\\ family on fall prevention, incl call for assistance when getting out of bed. Abuse screen: Denies threats or abuse. Nutritional screening: No deficits noted. Tuberculosis screening: No symptoms or risk factors identified. Assessment: 17:35 General: Appears in no apparent distress. Behavior is calm, cooperative, appropriate mb9 for age. Pain: Complains of pain in chest. Neuro: Nice Agitation-Sedation Scale (RASS): 0 - Alert and Calm Level of Consciousness is awake, alert, obeys commands, Oriented to person, place, time, situation, Appropriate for age. Cardiovascular: Reports chest pain, shortness of breath, Heart tones S1 S2 present Patient's skin is warm and dry. Respiratory: Reports shortness of breath Airway is patent Respiratory effort is even, unlabored, Respiratory pattern is regular, symmetrical, Breath sounds are clear bilaterally. GI: Abdomen is round non-distended, Bowel sounds present X 4 quads. Abd is soft and non tender X 4 quads. : No signs and/or symptoms were reported regarding the genitourinary system. EENT: No signs and/or symptoms were reported regarding the EENT system. Derm: Skin is pink, warm \\T\\ dry. Musculoskeletal: Range of motion: intact in all extremities. 19:00 Reassessment: Patient appears in no apparent distress at this time. No changes from [facility] previously documented assessment. Patient and/or family updated on plan of care and expected duration. Pain level reassessed. Patient is alert, oriented x 3, equal unlabored respirations, skin warm/dry/pink. 20:00 Reassessment: Patient appears in no apparent distress at this time. No changes from 7 previously documented assessment. Patient and/or family updated on plan of care and expected duration. Pain level reassessed. Patient is alert, oriented x 3, equal unlabored respirations, skin warm/dry/pink. 21:00 Reassessment: Patient appears in no apparent distress at this time. No changes from 7 previously documented assessment. Patient and/or family updated on plan of care and expected duration. Pain level reassessed. Patient is alert, oriented x 3, equal unlabored respirations, skin warm/dry/pink. 21:12 General: attempted to call report, no answer. as6 Vital Signs: 17:25 BP 139 / 83; Pulse 82; Resp 18; Temp 97.4; Pulse Ox 100% on R/A; Weight 104.33 kg (R); cm10 Height 5 ft. 11 in. (R); Pain 2/10; 17:57 BP 143 / 77; Pulse 81; Resp 18; Pulse Ox 98% on R/A; mb9 19:00 BP 122 / 78; Pulse 70; Resp 18 S; Pulse Ox 96% on R/A; jw7 20:10 BP 134 / 71; Pulse 60; Resp 16 S; Pulse Ox 100% on 2 lpm NC; jw7 21:09 BP 138 / 81; Pulse 75; Resp 15 S; Pulse Ox 99% on 2 lpm NC; as6 17:25 Body Mass Index 32.08 (104.33 kg, 180.34 cm) cm10 17:25 Pain Scale: Adult cm10 ED Course: 17:12 Patient arrived in ED. mr 17:12 Young Arriaga MD is Private Physician. mr 17:23 Garima Varela FNP-[place] [facility]. kb 17:23 Jaxon Foreman MD is Attending Physician. kb 17:27 Triage completed. cm10 17:27 Arm band placed on Patient placed in an exam room, on a stretcher. cm10 17:28 Jyothi Linares, RN is Primary Nurse. mb9 17:29 Placed in gown. Bed in low position. Call light in reach. Side rails up X 1. Client mb9 placed on continuous cardiac and pulse oximetry monitoring. NIBP monitoring applied. regional education manager on. 17:30 No provider procedures requiring assistance completed. Inserted saline lock: 20 gauge mb9 in left antecubital area, using aseptic technique. 17:43 Basic Metabolic Panel Sent. mb9 17:43 CBC with Diff Sent. mb9 17:43 Magnesium Sent. mb9 17:43 NT PRO-BNP Sent. mb9 17:43 PT-INR Sent. mb9 17:43 Troponin HS Sent. mb9 18:12 XRAY Chest (1 view) In Process Unspecified. EDMS 19:04 Report given to Karly. mb9 19:55 Chest Pa And Lat (2 Views) XRAY In Process Unspecified. EDMS 20:05 US Extremity Venous W Compression Rafi In Process Unspecified. EDMS 20:41 Young Arriaga MD is Hospitalizing Provider. kb 21:12 Provided Education on: need for admit. as6 21:12 Patient admitted, IV remains in place. as6 Administered Medications: 20:40 Drug: NS 0.9% IV 500 ml IV at bolus once Route: IV; Rate: bolus; Site: left antecubital;as6 21:11 Follow up: Response: No adverse reaction; IV Status: Completed infusion; IV Intake: as6 500ml Medication: 17:29 VIS not applicable for this client. mb9 Intake: 21:11 IV: 500ml; Total: 500ml. as6 Outcome: 20:42 Decision to Hospitalize by Provider. kb 21:12 Condition: stable as6 21:12 Instructed on the need for admit, 21:30 Admitted to Med/surg accompanied by nurse, via wheelchair, room 224, Report called to 7 Charge Nurse 22:07 Patient left the ED. [facility] Signatures: Dispatcher [employer] EDNY Garima Varela, STRATEGIC CLIENT EXECUTIVE-C STRATEGIC CLIENT EXECUTIVE-CkJyothi Wynn, Reg Reg Srinivas Yepez, RN RN as6 Millicent Waite RN RN jw7 Jyothi Linares, RN RN mb9 Destini Ortiz, RN RN cm10 Corrections: (The following items were deleted from the chart) 17:25 17:25 Social history: Smoking status: Patient/guardian denies using tobacco, cm10 cm10
--- NOTE | 2023-08-28 20:43 | EDPHYS ---
Physician Documentation [facility] Name: Leonardo Way Age: 68 yrs Sex: Male : 1955 Arrival Date: 08/28/2023 Time: 17:10 Bed 4 Private MD: Young Arriaga V ED Physician Jaxon Foreman HPI: 08/28 19:42 This 68 yrs old Male presents to ER via Ambulatory with complaints of possible blood kb clot. 19:43 Patient is a 68-year-old male who presents for chest pain and shortness of breath that kb started 2 weeks ago. States he was seen by Dr. Arriaga and had blood work done, received a call today saying to come to the ER because he may have a blood clot in his lung.. Historical: - Allergies: 17:23 No Known Allergies; cm10 - Home Meds: 17:23 Lyrica Oral [Active]; cm10 - PMHx: 17:23 Neuropathy; Hypercholesterolemia; Cerebrovascular accident; Hypertensive disorder; GERD;cm10 - PSHx: 17:25 Cholecystectomy; Back; cm10 - Immunization history:: Adult Immunizations unknown. - Social history:: Smoking status: Smoking status: Patient reports the use of cigarette tobacco products, denies chronic smoking, but will smoke occasionally. ROS: 19:43 Constitutional: Negative for fever, chills, and weight loss, kb 19:43 Cardiovascular: Positive for chest pain, 19:43 Respiratory: Positive for shortness of breath, 19:43 All other systems are negative, Exam: 19:43 Constitutional: This is a well developed, well nourished patient who is awake, alert, kb and in no acute distress. Head/Face: Normocephalic, atraumatic. ENT: Moist Mucous membranes Cardiovascular: Regular rate Respiratory: Respirations even and unlabored. No increased work of breathing. Talking in full sentences Abdomen/GI: Soft, non-tender. No distention Skin: Warm, dry with normal turgor. Normal color. MS/ Extremity: Pulses equal, no cyanosis. Neurovascular intact. Full, normal range of motion. Neuro: Awake and alert, GCS 15, oriented to person, place, time, and situation. Moves all extremities. Normal gait. 20:42 ECG was reviewed by the Attending Physician. kb Vital Signs: 17:25 BP 139 / 83; Pulse 82; Resp 18; Temp 97.4; Pulse Ox 100% on R/A; Weight 104.33 kg (R); cm10 Height 5 ft. 11 in. (R); Pain 2/10; 17:57 BP 143 / 77; Pulse 81; Resp 18; Pulse Ox 98% on R/A; mb9 19:00 BP 122 / 78; Pulse 70; Resp 18 S; Pulse Ox 96% on R/A; jw7 20:10 BP 134 / 71; Pulse 60; Resp 16 S; Pulse Ox 100% on 2 lpm NC; jw7 21:09 BP 138 / 81; Pulse 75; Resp 15 S; Pulse Ox 99% on 2 lpm NC; as6 17:25 Body Mass Index 32.08 (104.33 kg, 180.34 cm) cm10 17:25 Pain Scale: Adult cm10 MDM: 17:23 Patient medically screened. kb 19:43 Differential diagnosis: Myocardial Infarction pneumonia, pulmonary edema, Pulmonary kb Embolism. Data reviewed: vital signs, nurses notes. Consideration of Admission/Observation Patient was admitted/placed on observation. Escalation of care including admission/observation considered. Test considered but Not performed: CT: CT to rule out PE considered but patient is in acute renal failure. Will admit. External Records Reviewed: Outpatient labs: Outpatient labs ordered by Dr. Arriaga reviewed. D-dimer elevated. Counseling: I had a detailed discussion with the patient and/or guardian regarding the historical points, exam findings, and any diagnostic results supporting the discharge/admit diagnosis, lab results, radiology results, the need for further work-up and treatment in the hospital. 20:41 Management of patient was discussed with the following: Primary Care Provider: Dr Bart bernal accepts pt for admission. 08/28 17:31 Order name: Basic Metabolic Panel; Complete Time: 18:16 kb 08/28 17:31 Order name: CBC with Diff; Complete Time: 18:48 kb 08/28 17:31 Order name: Magnesium; Complete Time: 18:16 kb 08/28 17:31 Order name: NT PRO-BNP; Complete Time: 18:16 kb 08/28 17:31 Order name: PT-INR; Complete Time: 18:00 kb 08/28 17:31 Order name: Troponin HS; Complete Time: 18:16 kb 08/28 18:45 Order name: CBC Smear Scan; Complete Time: 18:48 EDMS 08/28 17:31 Order name: XRAY Chest (1 view); Complete Time: 18:48 kb 08/28 18:42 Order name: US Extremity Venous W Compression Rafi; Complete Time: 20:42 kb 08/28 18:49 Order name: Chest Pa And Lat (2 Views) XRAY; Complete Time: 20:01 kb 08/28 17:31 Order name: EKG; Complete Time: 17:31 kb 08/28 17:31 Order name: Cardiac monitoring; Complete Time: 17:43 kb 08/28 17:31 Order name: EKG - Nurse/Tech; Complete Time: 17:43 kb 08/28 17:31 Order name: IV Saline Lock; Complete Time: 17:43 kb 08/28 17:31 Order name: Labs collected and sent; Complete Time: 17:43 kb 08/28 17:31 Order name: O2 Per Protocol; Complete Time: 17:43 kb 08/28 17:31 Order name: O2 Sat Monitoring; Complete Time: 17:43 kb EC:42 Rate is 85 beats/min. Rhythm is regular. QRS [place] is Normal. MA interval is normal at kb 148 msec. QRS interval is normal at 92 msec. QT interval is normal at 442 msec. Administered Medications: 20:40 Drug: NS 0.9% IV 500 ml IV at bolus once Route: IV; Rate: bolus; Site: left antecubital;as6 21:11 Follow up: Response: No adverse reaction; IV Status: Completed infusion; IV Intake: as6 500ml Disposition Summary: 08/28/23 20:42 Hospitalization Ordered Notes: Hospitalization Status: Inpatient Admission kb Provider: Young Arriaga [facility] kb Condition: Stable kb Problem: new kb Symptoms: are unchanged kb Bed/Room Type: Standard Room Assignment: 224(08/28/23 21:02) Diagnosis - Acute kidney failure, unspecified kb - Dyspnea - elevated d-dimer kb - Chest pain, unspecified kb Forms: - Medication Reconciliation Form kb - SBAR form kb - Leadership Thank You Letter kb Signatures: Dispatcher [employer] EDOH Garima Varela FNP-C FNP-Ofelia Biswas RN RN Srinivas Yepez RN RN as6 Destini Ortiz RN RN cm10 Corrections: (The following items were deleted from the chart) 17:25 17:25 Social history: Smoking status: Patient/guardian denies using tobacco, 10 10 21:02 20:42 kb cg
[2023-08-28] MEDS ORDERED: NA CHLORIDE 0.9% 500 ML ONE (20:51)
[2023-08-28] MEDS ORDERED: NACHLORIDE 0.45% 1,000 ML IV SCH (22:03)
[2023-08-28 23:12] VITALS: BMI 32.1
[2023-08-29 06:26] LABS: Absolute Lymphocytes (CBC) 2.1 K/uL (0.7-4.9); Hematocrit 25.5 % (39.6-49.0); MCV 66.9 fL (80-100); MPV 7.9 fL (7.6-11.3); Platelets 255 thou/uL (152-406); RBC Red Blood Cell Count 3.82 M/uL (4.33-5.43)
[2023-08-29 06:40] LABS: Potassium 3.8 mEq/L (3.5-5.1)
[2023-08-29] MEDS ORDERED: INFLUENZA VACCINE (for 6+ mo) 0.5 ML DOSE IMVAC ONE (08:00)
[2023-08-29 09:48] VITALS: O2SAT 94
--- NOTE | 2023-08-29 11:37 | RAD REPORT ---
EXAM DESCRIPTION: NM - Vent Perfusion VQ Scan - 08/29/2023 11:27 am CLINICAL HISTORY: Elevated D-dimer COMPARISON: Chest radiograph from 08/28/2023 TECHNIQUE: The patient was administered approximately 20.3 MCi Xenon 133 gas with posterior projecti on inspiration, equilibrium, and washout views obtained. The patient was then administered approximat patricia 6.7 MCi Tc-99m SC labeled RBCs followed by standard 8 view protocol. FINDINGS: There is good distribution of the Xenon with no ventilation defects identified. No signifi cant air-trapping seen. Perfusion images show no defects suspicious for pulmonary emboli. IMPRESSION: Normal V/Q Scan.
[2023-08-29 11:41] VITALS: BP 126/75; TEMP 99.1
--- NOTE | 2023-08-29 13:07 | P.SSS ---
Patient History Date of Service: 08/29/23 Reason for admission: DYPSNEA History of Present Illness: SAQIB CAME TO OFFICE WITH DYSPNEA. HIS D DIMER WAS VERY HIGH. I ASKED HIM TO GO TO ER. HE WAS NOT ABLE TO GET CT DONE CREAT WAS HIGH AT 2.6. WITH IV FOR DEHYDRATION THE CREAT CAME DOWN TO 1.6. HIS HG DOWN TO 8.0 WITH LOW MCV. HE WILL FU WITH GI DOCTOR. Chirag MARTINEZ AND AVOID ALL NSAIDS. HE WILL FU WITH ME IN OFFICE. I ASKED HIM TO TAKE OTC IRON TABLETS. Allergies No Known Allergies Allergy (Unverified 03/16/23 15:17) Home medications list reviewed: Yes Home Medications: Aspirin 81 mg PO DAILY 03/17/23 Clopidogrel Bisulfate [Plavix] 75 mg PO DAILY 03/17/23 Cyanocobalamin [Vitamin B-12*] 1,000 mcg PO DAILY 03/17/23 Docusate [Colace Cap*] 100 mg PO DAILY 03/17/23 Famotidine [Pepcid] 20 mg PO DAILY 03/17/23 Fenofibrate [Tricor*] 145 mg PO DAILY 03/17/23 Hydrocodone 10/APAP 325 [Taylor 10/325*] 1 tab PO Q6H PRN 03/17/23 Pregabalin [Lyrica] 300 mg PO BID 03/17/23 Rosuvastatin Calcium [Crestor] 20 mg PO BEDTIME 03/17/23 carvediloL [Carvedilol] 6.25 mg PO BID 03/17/23 Trazodone [Desyrel] 150 mg PO BEDTIME 08/29/23 - Past Medical/Surgical History Has patient received pneumonia vaccine in the past: Yes Diabetic: No -: SLEEP APNEA -: GERD -: CAD -: RENAL DISEASE -: HTN - Social History Smoking Status: Current some day smoker Alcohol use: No CD- Drugs: No Caffeine use: No Place of Residence: Home Review of Systems 10-point ROS is otherwise unremarkable General: Weakness, Malaise Physical Examination - Vital Signs Temperature: 99.1 F Blood Pressure: 126/75 Pulse: 76 Respirations: 18 Pulse Ox (%): 95 - Physical Exam General: Alert, In no apparent distress HEENT: Atraumatic, PERRLA, Mucous membr. moist/pink, EOMI, Sclerae nonicteric Neck: Supple, 2+ carotid pulse no bruit, No LAD, Without JVD or thyroid abnormality Respiratory: Clear to auscultation bilaterally, Normal air movement Cardiovascular: Regular rate/rhythm, Normal S1 S2 Gastrointestinal: Normal bowel sounds, No tenderness Musculoskeletal: No tenderness Integumentary: No rashes Neurological: Normal gait, Normal speech, Normal strength at 5/5 x4 extr, Normal tone, Normal affect Lymphatics: No axilla or inguinal lymphadenopathy - Studies Laboratory Data (last 24 hrs) 08/28/23 08/28/23 08/28/23 17:42 17:42 17:42 WBC 10.70 Hgb 8.4 L Hct 27.4 L Plt Count 289 PT 10.7 INR 0.97 Sodium 143 Potassium 4.2 BUN 31 H Creatinine 2.45 H Glucose 131 H Magnesium 2.0 - Diagnosis (Problem(s)) (1) Dyspnea Current Visit: Yes Status: Chronic Plan: THIS MAY BE MULTIFACTORIAL ANEMIA, CAD. PE IS RULED OUT. NO CHF ON XRAY NO PNEUMONIA. NO CANCERS IN LUNGS. (2) Dehydration Current Visit: Yes Status: Acute Plan: IV FLUIDS HELPED. FU Q3M. ORAL HYDRATION. (3) Acute on chronic renal insufficiency Current Visit: Yes Status: Acute Plan: ABOVE. (4) Iron deficiency anemia Current Visit: Yes Status: Acute Plan: LOW MCV CONTINUE IRON FU WITH GI DOCTOR. Qualifiers: Iron deficiency anemia type: chronic blood loss Qualified Code(s): D50.0 - Iron deficiency anemia secondary to blood loss (chronic) - Disposition Disposition: ROUTINE DISCHARGE Condition: FAIR
[2023-08-29] MEDS ORDERED: PREGABALIN 150 MG CAP PO SCH (21:00)
[2023-08-29] MEDS ORDERED: ROSUVASTATIN 10 MG TAB PO SCH (21:00)
[2023-08-30] MEDS ORDERED: CLOPIDOGREL 75 MG TABLET PO SCH (09:00)
[2023-08-30] MEDS ORDERED: FENOFIBRATE 160 MG TAB PO SCH (09:00)
--- NOTE | 2023-08-30 13:30 | EKG ---
Test Date: 2023-08-29 Test Time: 10:56:48 Electrophysiology Tech: TAMMY MEASUREMENT RESULTS: Intervals: Rate: 63 WA: 154 QRSD: 102 QT: 398 QTc: 407 Lenora: P: 59 WA: 154 QRS: 28 T: 32 INTERPRETIVE STATEMENTS: Normal sinus rhythm Normal ECG Compared to ECG 08/28/2023 17:35:50 No significant changes Electronically Signed On 08-30-23 13:27:08 AUTOMOBILE ASSEMBLER by Edgar Long
--- NOTE | 2023-08-30 13:34 | EKG ---
Test Date: 2023-08-28 Test Time: 17:35:50 Geotechnical Operating Engineer: BLAYNE MEASUREMENT RESULTS: Intervals: Rate: 85 WA: 148 QRSD: 92 QT: 372 QTc: 442 [place]: P: 39 WA: 148 QRS: 18 T: 18 INTERPRETIVE STATEMENTS: Normal sinus rhythm Normal ECG Compared to ECG 03/18/2023 14:38:34 T-wave abnormality no longer present Electronically Signed On 08-30-23 13:28:12 BAR TENDER by dEgar Long
== END 2023-08-29 16:40 | disposition home or self-care (01) ==
LOC: ER 17:10 → ERHOLD 20:37 → INTOOBSV 20:37 → 2ND 21:15
PROVIDERS: ADMIT Internal Medicine; ATTEND Internal Medicine
DX: N17.9 Acute kidney failure, unspecified (principal); N28.9 Disorder of kidney and ureter, unspecified; R07.9 Chest pain, unspecified; E86.0 Dehydration; D50.0 Iron deficiency anemia secondary to blood loss (chronic); R79.1 Abnormal coagulation profile; F17.210 Nicotine dependence, cigarettes, uncomplicated; I10 Essential (primary) hypertension; E78.00 Pure hypercholesterolemia, unspecified; R06.00 Dyspnea, unspecified; Z86.73 Personal history of transient ischemic attack (TIA), and cerebral infarction without residual deficits
CPT/HCPCS: 93005 ×2; 85025 ×3; 80048 ×2; 36415 ×2; 83735; 85610; 80061; 85379; 84443; 81003; 83036; 84484 ×3; 82728; 82607; 80053; 82306; 83880 ×2; 71045; 71046 ×2; 93970; 78582; 96360; 99285; G0103; J7040; A9558; A9540; G0378 ×3